=== PATIENT | male | born 1980 | race American Indian/Alaskan Native ===

== ENCOUNTER 2019-11-22 09:53 | Inpatient (IN) | payer OTHER ==
[2019-11-22] MEDS: Sodium Chloride 0.9% 10 ML Syringe FLUSH PRN (11:07)
[2019-11-22 11:25] LABS: ANION GAP 10.6; CHLORIDE,CL 97 mmol/L (101-111); SODIUM,NA 128 mmol/L (135-145)
[2019-11-22] MEDS: Dextrose 5%-0.9% NaCl with KCl 1,000 ML IV SCH ×2 (12:32→20:38)
--- NOTE | 2019-11-22 12:47 | EDM.PDOC ---
ED HPI GENERAL MEDICAL PROBLEM - General Chief Complaint: Lower Extremity Injury/Pain Stated Complaint: BLOOD CLOT ON RT LEG Time Seen by Provider: 11/22/19 10:50 Source of Information: Reports: Patient, Family, RN, RN Notes Reviewed History Limitations: Reports: No Limitations - History of Present Illness INITIAL COMMENTS - FREE TEXT/NARRATIVE: patient presents to ER with complaint of swelling, warmth, tenderness to the right lower leg. Patient states this began on November 12, and has progressively gotten worse. Patient states he has not had a lot of long car rides, and has never had a blood clot.Patient states he may have bumped the leg , but is unsure. Patient was seen in [facility] yesterday, and was advised to come to the ER yesterday. Patient states he is unable to get here until today. Onset: Gradual Onset Date: 11/12/19 Duration: Constant, Getting Worse Right Lower Leg Pain Score (Numeric/FACES): 8 - Related Data Allergies Allergy/AdvReac Type Severity Reaction Status Date / Time No Known Allergies Allergy Verified 11/22/19 13:02 Home Meds: Home Meds Metoprolol Tartrate [Lopressor] 50 mg PO DAILY 11/22/19 [History] Potassium Chloride 20 meq PO BID 11/22/19 [History] Past Medical History Cardiovascular History: Reports: Hypertension Social & Family History - Family History Family Medical History: Noncontributory - Tobacco Use Smoking Status *Q: Never Smoker - Caffeine Use Caffeine Use: Reports: Energy Drinks - Recreational Drug Use Recreational Drug Use: No Review of Systems - Review of Systems Review Of Systems: Comprehensive ROS is negative, except as noted in HPI. ED EXAM, GENERAL - Physical Exam Exam: See Below Exam Limited By: No Limitations General Appearance: Alert, WD/WN, No Apparent Distress Eye Exam: Left Eye: Proptosis, Bilateral Eye: Conjunctival Injection Ears: Normal External Exam, Hearing Grossly Normal Nose: Normal Inspection Throat/Mouth: Normal Inspection, Normal Voice, No Airway Compromise Head: Atraumatic, Normocephalic Neck: Normal Inspection, Supple, Non-Tender, Full Range of Motion Respiratory/Chest: No Respiratory Distress, Lungs Clear, No Accessory Muscle Use , Chest Non-Tender, Decreased Breath Sounds Cardiovascular: Normal Peripheral Pulses, Regular Rate, Rhythm, No Edema, No Gallop, No JVD, No Murmur, No Rub Peripheral Pulses: 1+: Dorsalis Pedis (L), Dorsalis Pedis (R), 2+: Radial (L), Radial (R) GI/Abdominal: Normal Bowel Sounds, Soft, Non-Tender (Male) Exam: Deferred Rectal (Males) Exam: Deferred Back Exam: Normal Inspection, Full Range of Motion, NT Extremities: Leg Pain (right lower leg), Limited Range of Motion (ight lower leg ), Increased Warmth (ight lower leg), Redness (right lower leg) Neurological: Alert, Oriented, CN II-XII Intact, Normal Cognition, Normal Gait, Normal Reflexes, No Motor/Sensory Deficits Psychiatric: Normal Affect, Normal Mood Skin Exam: Erythema (ight lower leg), Increased Warmth (right lower leg), Lymphangitis (right lower leg) Lymphatic: No Adenopathy Course - Vital Signs Last Recorded V/S: Last Vital Signs Temp 98.9 F 11/22/19 10:35 Pulse 114 H 11/22/19 10:35 Resp 20 11/22/19 10:35 BP 143/90 H 11/22/19 10:35 Pulse Ox 98 11/22/19 10:35 - Orders/Labs/Meds Orders: Active Orders 24 hr Category Date Time Status Peripheral IV Care [RC] . DIRECTED Care 11/22/19 10:50 Active Dextrose 5%-0.9% NaCl with KCl [D5 NS with 20 mEq KCl] Med 11/22/19 11:45 Active 1,000 ml IV ASDIRECTED Sodium Chloride 0.9% [Saline Flush] Med 11/22/19 10:50 Active 10 ml FLUSH ASDIRECTED PRN Peripheral IV Insertion Adult [OM.PC] Stat Oth 11/22/19 10:50 Ordered Medication Orders Potassium Chloride/Dextrose/Sod Cl (D5 Ns With 20 Meq Kcl) 1,000 mls @ 150 mls/ hr IV ASDIRECTED SILVESTRE Last Admin: 11/22/19 12:32 Dose: 150 mls/hr Sodium Chloride (Saline Flush) 10 ml FLUSH ASDIRECTED PRN PRN Reason: Keep Vein Open Last Admin: 11/22/19 11:07 Dose: 10 ml Labs: Laboratory Tests 11/22/19 11/22/19 11/22/19 Range/Units 11:00 11:00 11:00 WBC 6.7 (5.0-10.0) 10^3/uL RBC 3.98 L (4.6-6.2) 10^6/uL Hgb 13.0 L (14.0-18.0) g/dL Hct 37.0 L (40.0-54.0) % MCV 93.0 (80-100) fL MCH 32.7 (27.0-34.0) pg MCHC 35.1 H (33.0-35.0) g/dL Plt Count 135 L (150-450) 10^3/uL Neut % (Auto) 61.3 (42.2-75.2) % Lymph % (Auto) 22.3 (20.5-50.1) % [place] % (Auto) 14.0 H (2-8) % Eos % (Auto) 2.1 (1.0-3.0) % Baso % (Auto) 0.3 (0.0-1.0) % PT (9.0-12.0) SEC INR (0.9-1.2) D-Dimer, Quantitative 923 H (0-400) ng/mL Sodium 128 L (135-145) mmol/L Potassium 2.6 L (3.6-5.0) mmol/L Chloride 97 L (101-111) mmol/L Carbon Dioxide 23.0 (21.0-31.0) mmol/L Anion Gap 10.6 BUN 6 L (7-18) mg/dL Creatinine 0.6 (0.6-1.3) mg/dL Est Cr Clr Drug Dosing 119.85 mL/min Estimated GFR (MDRD) > 60 BUN/Creatinine Ratio 10.00 Glucose 152 H (74-105) mg/dL Calcium 7.1 L (8.4-10.2) mg/dl Total Bilirubin 1.8 H (0.2-1.0) mg/dL AST 132 H (10-42) IU/L ALT 56 (10-60) IU/L Alkaline Phosphatase 149 H (42-121) IU/L Total Protein 8.3 H (6.7-8.2) g/dl Albumin 1.8 L (3.2-5.5) g/dl Globulin 6.5 Albumin/Globulin Ratio 0.28 Urine Color (YELLOW) Urine Appearance (CLEAR) Urine pH (5.0-9.0) Ur Specific [place] (1.005-1.030) Urine Protein (NEGATIVE) Urine Glucose (UA) (NEGATIVE) Urine Ketones (NEGATIVE) Urine Occult Blood (NEGATIVE) Urine Nitrite (NEGATIVE) Urine Bilirubin (NEGATIVE) Urine Urobilinogen (0.2-1.0) mg/dL Ur Leukocyte Esterase (NEGATIVE) Urine RBC /HPF Urine WBC (0-5/HPF) /HPF Ur Epithelial Cells (NOT SEEN) /HPF Urine Bacteria (0-FEW/HPF) /HPF Urine Mucus (NOT SEEN) /LPF Urine Opiates Screen (NEGATIVE) Ur Oxycodone Screen (NEGATIVE) Urine Methadone Screen (NEGATIVE) Ur Barbiturates Screen (NEGATIVE) U Tricyclic Antidepress (NEGATIVE) Ur Phencyclidine Scrn (NEGATIVE) Ur Amphetamine Screen (NEGATIVE) U Methamphetamines Scrn (NEGATIVE) Urine MDMA Screen (NEGATIVE) U Benzodiazepines Scrn (NEGATIVE) Urine Cocaine Screen (NEGATIVE) U Marijuana (THC) Screen (NEGATIVE) Ethyl Alcohol mg/dL 11/22/19 11/22/19 11/22/19 Range/Units 11:00 11:00 11:07 WBC (5.0-10.0) 10^3/uL RBC (4.6-6.2) 10^6/uL Hgb (14.0-18.0) g/dL Hct (40.0-54.0) % MCV (80-100) fL MCH (27.0-34.0) pg MCHC (33.0-35.0) g/dL Plt Count (150-450) 10^3/uL Neut % (Auto) (42.2-75.2) % Lymph % (Auto) (20.5-50.1) % Whitfield % (Auto) (2-8) % Eos % (Auto) (1.0-3.0) % Baso % (Auto) (0.0-1.0) % PT 11.6 (9.0-12.0) SEC INR 1.1 (0.9-1.2) D-Dimer, Quantitative (0-400) ng/mL Sodium (135-145) mmol/L Potassium (3.6-5.0) mmol/L Chloride (101-111) mmol/L Carbon Dioxide (21.0-31.0) mmol/L Anion Gap BUN (7-18) mg/dL Creatinine (0.6-1.3) mg/dL Est Cr Clr Drug Dosing mL/min Estimated GFR (MDRD) BUN/Creatinine Ratio Glucose (74-105) mg/dL Calcium (8.4-10.2) mg/dl Total Bilirubin (0.2-1.0) mg/dL AST (10-42) IU/L ALT (10-60) IU/L Alkaline Phosphatase (42-121) IU/L Total Protein (6.7-8.2) g/dl Albumin (3.2-5.5) g/dl Globulin Albumin/Globulin Ratio Urine Color (YELLOW) Urine Appearance (CLEAR) Urine pH (5.0-9.0) Ur Specific [place] (1.005-1.030) Urine Protein (NEGATIVE) Urine Glucose (UA) (NEGATIVE) Urine Ketones (NEGATIVE) Urine Occult Blood (NEGATIVE) Urine Nitrite (NEGATIVE) Urine Bilirubin (NEGATIVE) Urine Urobilinogen (0.2-1.0) mg/dL Ur Leukocyte Esterase (NEGATIVE) Urine RBC /HPF Urine WBC (0-5/HPF) /HPF Ur Epithelial Cells (NOT SEEN) /HPF Urine Bacteria (0-FEW/HPF) /HPF Urine Mucus (NOT SEEN) /LPF Urine Opiates Screen Negative (NEGATIVE) Ur Oxycodone Screen Negative (NEGATIVE) Urine Methadone Screen Negative (NEGATIVE) Ur Barbiturates Screen Negative (NEGATIVE) U Tricyclic Antidepress Negative (NEGATIVE) Ur Phencyclidine Scrn Negative (NEGATIVE) Ur Amphetamine Screen Negative (NEGATIVE) U Methamphetamines Scrn Negative (NEGATIVE) Urine MDMA Screen Negative (NEGATIVE) U Benzodiazepines Scrn Negative (NEGATIVE) Urine Cocaine Screen Negative (NEGATIVE) U Marijuana (THC) Screen Negative (NEGATIVE) Ethyl Alcohol 83 mg/dL 11/22/19 Range/Units 11:10 WBC (5.0-10.0) 10^3/uL RBC (4.6-6.2) 10^6/uL Hgb (14.0-18.0) g/dL Hct (40.0-54.0) % MCV (80-100) fL MCH (27.0-34.0) pg MCHC (33.0-35.0) g/dL Plt Count (150-450) 10^3/uL Neut % (Auto) (42.2-75.2) % Lymph % (Auto) (20.5-50.1) % [place]field % (Auto) (2-8) % Eos % (Auto) (1.0-3.0) % Baso % (Auto) (0.0-1.0) % PT (9.0-12.0) SEC INR (0.9-1.2) D-Dimer, Quantitative (0-400) ng/mL Sodium (135-145) mmol/L Potassium (3.6-5.0) mmol/L Chloride (101-111) mmol/L Carbon Dioxide (21.0-31.0) mmol/L Anion Gap BUN (7-18) mg/dL Creatinine (0.6-1.3) mg/dL Est Cr Clr Drug Dosing mL/min Estimated GFR (MDRD) BUN/Creatinine Ratio Glucose (74-105) mg/dL Calcium (8.4-10.2) mg/dl Total Bilirubin (0.2-1.0) mg/dL AST (10-42) IU/L ALT (10-60) IU/L Alkaline Phosphatase (42-121) IU/L Total Protein (6.7-8.2) g/dl Albumin (3.2-5.5) g/dl Globulin Albumin/Globulin Ratio Urine Color Yellow (YELLOW) Urine Appearance Slightly cloudy (CLEAR) Urine pH 7.0 (5.0-9.0) Ur Specific [place] 1.015 (1.005-1.030) Urine Protein Trace H (NEGATIVE) Urine Glucose (UA) Negative (NEGATIVE) Urine Ketones Negative (NEGATIVE) Urine Occult Blood Moderate H (NEGATIVE) Urine Nitrite Negative (NEGATIVE) Urine Bilirubin Negative (NEGATIVE) Urine Urobilinogen 4.0 H (0.2-1.0) mg/dL Ur Leukocyte Esterase Negative (NEGATIVE) Urine RBC 20-30 H /HPF Urine WBC 0-5 (0-5/HPF) /HPF Ur Epithelial Cells Rare (NOT SEEN) /HPF Urine Bacteria Rare (0-FEW/HPF) /HPF Urine Mucus Rare (NOT SEEN) /LPF Urine Opiates Screen (NEGATIVE) Ur Oxycodone Screen (NEGATIVE) Urine Methadone Screen (NEGATIVE) Ur Barbiturates Screen (NEGATIVE) U Tricyclic Antidepress (NEGATIVE) Ur Phencyclidine Scrn (NEGATIVE) Ur Amphetamine Screen (NEGATIVE) U Methamphetamines Scrn (NEGATIVE) Urine MDMA Screen (NEGATIVE) U Benzodiazepines Scrn (NEGATIVE) Urine Cocaine Screen (NEGATIVE) U Marijuana (THC) Screen (NEGATIVE) Ethyl Alcohol mg/dL Meds: Medications Generic Name Dose Route Start Last Admin Trade Name Freq PRN Reason Stop Dose Admin Potassium Chloride/Dextrose/Sod Cl 1,000 mls @ 150 mls/hr 11/22/19 11:45 12:32 D5 Ns With 20 Meq Kcl IV 150 mls/hr ASDIRECTED SILVESTRE Administration Sodium Chloride 10 ml 11/22/19 10:50 11/22/19 11:07 Saline Flush FLUSH 10 ml ASDIRECTED PRN Administration Keep Vein Open - Radiology Interpretation Free Text/Narrative:: Venous doppler right lower extremity ultrasound: FINDINGS: Right deep veins: Unremarkable. The common femoral, femoral, proximal profunda femoral and popliteal veins are patent without thrombus. Normal Doppler waveforms. Normal compressibility and/or augmentation response. The posterior tibial and peroneal veins in the calf are patent as well. Right superficial veins: Question some thrombus developing in the right greater saphenous vein along a valve near the saphenofemoral junction. Soft tissues: Unremarkable. Lymph nodes: Right inguinal lymph nodes measure 5.1 x 1.4 x 3.6 cm and 3.3 x 0.8 x 2.4 cm. IMPRESSION: 1. No deep venous thrombus demonstrated in the right lower extremity. 2. Question early superficial thrombophlebitis along a valve near the saphenofemoral junction in the greater saphenous vein. 3. Prominent inguinal lymph nodes, larger 1.4 cm short axis. Correlate clinically. Thank you for allowing us to participate in the care of your patient. Dictated and Authenticated by: Jonas White MD 11/22/2019 12:30 PM Central Time ([place] & [place]) See rad report - Re-Assessments/Exams Free Text/Narrative Re-Assessment/Exam: 11/22/19 13:15 Discussed patient case with Dr. Alberto who agreed to admit the patient for inpatient to the medical floor. Departure - Departure Time of Disposition: 12:55 Disposition: Admitted As Inpatient 64 Condition: Fair Clinical Impression: Thrombophlebitis leg - Discharge Information *PRESCRIPTION DRUG MONITORING PROGRAM REVIEWED*: No *COPY OF PRESCRIPTION DRUG MONITORING REPORT IN PATIENT CHARITY: No Sepsis Event Note - Evaluation Sepsis Screening Result: No Definite Risk - Focused Exam Vital Signs: Vital Signs Temp Pulse Resp BP Pulse Ox 11/22/19 10:35 98.9 F 114 H 20 143/90 H 98 Date Exam was Performed: 11/22/19 Time Exam was Performed: 13:11 - My Orders Last 24 Hours: My Active Orders 11/22/19 10:50 Peripheral IV Care [RC] . DIRECTED Sodium Chloride 0.9% [Saline Flush] 10 ml FLUSH ASDIRECTED PRN Peripheral IV Insertion Adult [OM.PC] Stat 11/22/19 11:45 Dextrose 5%-0.9% NaCl with KCl [D5 NS with 20 mEq KCl] 1,000 ml IV ASDIRECTED - Assessment/Plan Last 24 Hours: My Active Orders 11/22/19 10:50 Peripheral IV Care [RC] . DIRECTED Sodium Chloride 0.9% [Saline Flush] 10 ml FLUSH ASDIRECTED PRN Peripheral IV Insertion Adult [OM.PC] Stat 11/22/19 11:45 Dextrose 5%-0.9% NaCl with KCl [D5 NS with 20 mEq KCl] 1,000 ml IV ASDIRECTED
--- NOTE | 2019-11-22 13:53 | PCM.HP ---
H&P History of Present Illness - General Date of Service: 11/22/19 Admit Problem/Dx: Admission Diagnosis/Problem Admission Diagnosis/Problem Cellulitis and Severe Hypokalemia Source of Information: Patient, Old Records History Limitations: Reports: No Limitations - History of Present Illness Initial Comments - Free Text/Narative: This is a 39 old Male with past medical history of Hypertension and likely alcohol abuse ( he is denying) but his blood alcohol was 83. He came to ED with complain od RT LE pain and swelling and warmth for the last 2-3 days and getting worse. He had U/S of RT LE and no DVT but superficial thrombophlebitis. on lab he was noted to have Hyponatremia and severe Hypokalemia. He was admitted for Likely Cellulitis Onset of Symptoms: Reports: Gradual Duration of Symptoms: Reports: Day(s): (2-3) Quality: Reports: Burning Associated Symptoms: Reports: Rash Right Lower Leg Pain Score (Numeric/FACES): 8 - Related Data Allergies/Adverse Reactions: Allergies Allergy/AdvReac Type Severity Reaction Status Date / Time No Known Allergies Allergy Verified 11/22/19 13:02 Home Medications: Home Meds Metoprolol Tartrate [Lopressor] 50 mg PO DAILY 11/22/19 [History] Potassium Chloride 20 meq PO BID 11/22/19 [History] Past Medical History HEENT History: Reports: Other (See Below) Other HEENT History: left lazy eye Cardiovascular History: Reports: Hypertension - Infectious Disease History Infectious Disease History: Reports: None Social & Family History - Family History Family Medical History: Noncontributory - Tobacco Use Smoking Status *Q: Never Smoker Second Hand Smoke Exposure: Yes - Caffeine Use Caffeine Use: Reports: Energy Drinks - Recreational Drug Use Recreational Drug Use: No H&P Review of Systems - Review of Systems: Review Of Systems: See Below General: Denies: Fever, Chills, Weakness, Fatigue HEENT: Denies: Hearing Changes, Post Nasal Drip, Sinus Congestion, Sore Throat, Visual Changes Pulmonary: Denies: Shortness of Breath, Wheezing, Cough, Sputum Cardiovascular: Denies: Chest Pain, Dyspnea on Exertion, Lightheadedness Gastrointestinal: Denies: Abdominal Pain, Diarrhea, Nausea, Vomiting Genitourinary: Denies: Dysuria, Burning, Urgency Musculoskeletal: Reports: Leg Pain, Foot Pain. Denies: Neck Pain, Shoulder Pain , Arm Pain Skin: Denies: Cyanosis, Jaundice Psychiatric: Denies: Confusion, Anxiety Neurological: Denies: Confusion, Numbness, Tingling, Tremors Hematologic/Lymphatic: Reports: No Symptoms Immunologic: Reports: No Symptoms Exam - Exam Exam: See Below - Vital Signs Vital Signs: Last Vital Signs Temp 38.0 C 11/22/19 13:10 Pulse 91 11/22/19 13:10 Resp 20 11/22/19 13:10 BP 149/94 H 11/22/19 13:10 Pulse Ox 100 11/22/19 13:10 Weight: 96.524 kg - Exam Quality Assessment: DVT Prophylaxis. No: Supplemental Oxygen, Urinary Catheter General: Alert, Oriented, Cooperative HEENT: Conjunctiva Clear, EOMI, Hearing Intact, Mucosa Moist & [place] Neck: No: Lymphadenopathy, JVD, Thyromegaly Lungs: Clear to Auscultation, Normal Respiratory Effort Cardiovascular: Regular Rate, Regular Rhythm, Normal S1, Normal S2 GI/Abdominal Exam: Normal Bowel Sounds, Soft, Non-Tender, No Organomegaly (Male) Exam: Deferred Rectal (Males) Exam: Deferred Back Exam: Normal Inspection Extremities: Normal Inspection, Pedal Edema, Redness, Other (toes of both feet are cracked) Neurological: Cranial Nerves Intact, Reflexes Equal Bilateral Neuro Extensive - Mental Status: Alert, Oriented x3, Normal Mood/Affect, Normal Cognition, Memory Intact Neuro Extensive - Motor, Sensory, Reflexes: CN II-XII Intact, Normal Gait Psychiatric: Alert, Normal Affect, Normal Mood - Patient Data Lab Results Last 24 hrs: Laboratory Results - last 24 hr 11/22/19 11/22/19 11/22/19 Range/Units 11:00 11:00 11:00 WBC 6.7 (5.0-10.0) 10^3/uL RBC 3.98 L (4.6-6.2) 10^6/uL Hgb 13.0 L (14.0-18.0) g/dL Hct 37.0 L (40.0-54.0) % MCV 93.0 (80-100) fL MCH 32.7 (27.0-34.0) pg MCHC 35.1 H (33.0-35.0) g/dL Plt Count 135 L (150-450) 10^3/uL Neut % (Auto) 61.3 (42.2-75.2) % Lymph % (Auto) 22.3 (20.5-50.1) % [place] % (Auto) 14.0 H (2-8) % Eos % (Auto) 2.1 (1.0-3.0) % Baso % (Auto) 0.3 (0.0-1.0) % PT (9.0-12.0) SEC INR (0.9-1.2) D-Dimer, Quantitative 923 H (0-400) ng/mL Sodium 128 L (135-145) mmol/L Potassium 2.6 L (3.6-5.0) mmol/L Chloride 97 L (101-111) mmol/L Carbon Dioxide 23.0 (21.0-31.0) mmol/L Anion Gap 10.6 BUN 6 L (7-18) mg/dL Creatinine 0.6 (0.6-1.3) mg/dL Est Cr Clr Drug Dosing 119.85 mL/min Estimated GFR (MDRD) > 60 BUN/Creatinine Ratio 10.00 Glucose 152 H (74-105) mg/dL Calcium 7.1 L (8.4-10.2) mg/dl Total Bilirubin 1.8 H (0.2-1.0) mg/dL AST 132 H (10-42) IU/L ALT 56 (10-60) IU/L Alkaline Phosphatase 149 H (42-121) IU/L Total Protein 8.3 H (6.7-8.2) g/dl Albumin 1.8 L (3.2-5.5) g/dl Globulin 6.5 Albumin/Globulin Ratio 0.28 Urine Color (YELLOW) Urine Appearance (CLEAR) Urine pH (5.0-9.0) Ur Specific [place] (1.005-1.030) Urine Protein (NEGATIVE) Urine Glucose (UA) (NEGATIVE) Urine Ketones (NEGATIVE) Urine Occult Blood (NEGATIVE) Urine Nitrite (NEGATIVE) Urine Bilirubin (NEGATIVE) Urine Urobilinogen (0.2-1.0) mg/dL Ur Leukocyte Esterase (NEGATIVE) Urine RBC /HPF Urine WBC (0-5/HPF) /HPF Ur Epithelial Cells (NOT SEEN) /HPF Urine Bacteria (0-FEW/HPF) /HPF Urine Mucus (NOT SEEN) /LPF Urine Opiates Screen (NEGATIVE) Ur Oxycodone Screen (NEGATIVE) Urine Methadone Screen (NEGATIVE) Ur Barbiturates Screen (NEGATIVE) U Tricyclic Antidepress (NEGATIVE) Ur Phencyclidine Scrn (NEGATIVE) Ur Amphetamine Screen (NEGATIVE) U Methamphetamines Scrn (NEGATIVE) Urine MDMA Screen (NEGATIVE) U Benzodiazepines Scrn (NEGATIVE) Urine Cocaine Screen (NEGATIVE) U Marijuana (THC) Screen (NEGATIVE) Ethyl Alcohol mg/dL 11/22/19 11/22/19 11/22/19 Range/Units 11:00 11:00 11:07 WBC (5.0-10.0) 10^3/uL RBC (4.6-6.2) 10^6/uL Hgb (14.0-18.0) g/dL Hct (40.0-54.0) % MCV (80-100) fL MCH (27.0-34.0) pg MCHC (33.0-35.0) g/dL Plt Count (150-450) 10^3/uL Neut % (Auto) (42.2-75.2) % Lymph % (Auto) (20.5-50.1) % [place] % (Auto) (2-8) % Eos % (Auto) (1.0-3.0) % Baso % (Auto) (0.0-1.0) % PT 11.6 (9.0-12.0) SEC INR 1.1 (0.9-1.2) D-Dimer, Quantitative (0-400) ng/mL Sodium (135-145) mmol/L Potassium (3.6-5.0) mmol/L Chloride (101-111) mmol/L Carbon Dioxide (21.0-31.0) mmol/L Anion Gap BUN (7-18) mg/dL Creatinine (0.6-1.3) mg/dL Est Cr Clr Drug Dosing mL/min Estimated GFR (MDRD) BUN/Creatinine Ratio Glucose (74-105) mg/dL Calcium (8.4-10.2) mg/dl Total Bilirubin (0.2-1.0) mg/dL AST (10-42) IU/L ALT (10-60) IU/L Alkaline Phosphatase (42-121) IU/L Total Protein (6.7-8.2) g/dl Albumin (3.2-5.5) g/dl Globulin Albumin/Globulin Ratio Urine Color (YELLOW) Urine Appearance (CLEAR) Urine pH (5.0-9.0) Ur Specific [place] (1.005-1.030) Urine Protein (NEGATIVE) Urine Glucose (UA) (NEGATIVE) Urine Ketones (NEGATIVE) Urine Occult Blood (NEGATIVE) Urine Nitrite (NEGATIVE) Urine Bilirubin (NEGATIVE) Urine Urobilinogen (0.2-1.0) mg/dL Ur Leukocyte Esterase (NEGATIVE) Urine RBC /HPF Urine WBC (0-5/HPF) /HPF Ur Epithelial Cells (NOT SEEN) /HPF Urine Bacteria (0-FEW/HPF) /HPF Urine Mucus (NOT SEEN) /LPF Urine Opiates Screen Negative (NEGATIVE) Ur Oxycodone Screen Negative (NEGATIVE) Urine Methadone Screen Negative (NEGATIVE) Ur Barbiturates Screen Negative (NEGATIVE) U Tricyclic Antidepress Negative (NEGATIVE) Ur Phencyclidine Scrn Negative (NEGATIVE) Ur Amphetamine Screen Negative (NEGATIVE) U Methamphetamines Scrn Negative (NEGATIVE) Urine MDMA Screen Negative (NEGATIVE) U Benzodiazepines Scrn Negative (NEGATIVE) Urine Cocaine Screen Negative (NEGATIVE) U Marijuana (THC) Screen Negative (NEGATIVE) Ethyl Alcohol 83 mg/dL 11/22/19 Range/Units 11:10 WBC (5.0-10.0) 10^3/uL RBC (4.6-6.2) 10^6/uL Hgb (14.0-18.0) g/dL Hct (40.0-54.0) % MCV (80-100) fL MCH (27.0-34.0) pg MCHC (33.0-35.0) g/dL Plt Count (150-450) 10^3/uL Neut % (Auto) (42.2-75.2) % Lymph % (Auto) (20.5-50.1) % [place] % (Auto) (2-8) % Eos % (Auto) (1.0-3.0) % Baso % (Auto) (0.0-1.0) % PT (9.0-12.0) SEC INR (0.9-1.2) D-Dimer, Quantitative (0-400) ng/mL Sodium (135-145) mmol/L Potassium (3.6-5.0) mmol/L Chloride (101-111) mmol/L Carbon Dioxide (21.0-31.0) mmol/L Anion Gap BUN (7-18) mg/dL Creatinine (0.6-1.3) mg/dL Est Cr Clr Drug Dosing mL/min Estimated GFR (MDRD) BUN/Creatinine Ratio Glucose (74-105) mg/dL Calcium (8.4-10.2) mg/dl Total Bilirubin (0.2-1.0) mg/dL AST (10-42) IU/L ALT (10-60) IU/L Alkaline Phosphatase (42-121) IU/L Total Protein (6.7-8.2) g/dl Albumin (3.2-5.5) g/dl Globulin Albumin/Globulin Ratio Urine Color Yellow (YELLOW) Urine Appearance Slightly cloudy (CLEAR) Urine pH 7.0 (5.0-9.0) Ur Specific [place] 1.015 (1.005-1.030) Urine Protein Trace H (NEGATIVE) Urine Glucose (UA) Negative (NEGATIVE) Urine Ketones Negative (NEGATIVE) Urine Occult Blood Moderate H (NEGATIVE) Urine Nitrite Negative (NEGATIVE) Urine Bilirubin Negative (NEGATIVE) Urine Urobilinogen 4.0 H (0.2-1.0) mg/dL Ur Leukocyte Esterase Negative (NEGATIVE) Urine RBC 20-30 H /HPF Urine WBC 0-5 (0-5/HPF) /HPF Ur Epithelial Cells Rare (NOT SEEN) /HPF Urine Bacteria Rare (0-FEW/HPF) /HPF Urine Mucus Rare (NOT SEEN) /LPF Urine Opiates Screen (NEGATIVE) Ur Oxycodone Screen (NEGATIVE) Urine Methadone Screen (NEGATIVE) Ur Barbiturates Screen (NEGATIVE) U Tricyclic Antidepress (NEGATIVE) Ur Phencyclidine Scrn (NEGATIVE) Ur Amphetamine Screen (NEGATIVE) U Methamphetamines Scrn (NEGATIVE) Urine MDMA Screen (NEGATIVE) U Benzodiazepines Scrn (NEGATIVE) Urine Cocaine Screen (NEGATIVE) U Marijuana (THC) Screen (NEGATIVE) Ethyl Alcohol mg/dL Result Diagrams: 11/22/19 11:00 11/22/19 11:00 - Problem List (1) Cellulitis SNOMED Code(s): 144299905 ICD Code: L03.90 - CELLULITIS, UNSPECIFIED Status: Acute Current Visit: Yes (2) Hyponatremia SNOMED Code(s): 71444837 ICD Code: E87.1 - HYPO-OSMOLALITY AND HYPONATREMIA Status: Acute Current Visit: Yes (3) Hypokalemia SNOMED Code(s): 80588558 ICD Code: E87.6 - HYPOKALEMIA Status: Acute Current Visit: Yes (4) Thrombophlebitis leg SNOMED Code(s): 92524273 ICD Code: I80.3 - PHLEBITIS AND THROMBOPHLEBITIS OF LOWER EXTREMITIES, UNSP Status: Acute Current Visit: Yes Problem List Initiated/Reviewed/Updated: Yes Orders Last 24hrs: Active Orders 24 hr Category Date Time Status Admission Diagnosis [ADT] Routine ADT 11/22/19 12:56 Ordered Admission Status [Patient Status] [ADT] Routine ADT 11/22/19 12:56 Active Peripheral IV Care [RC] . DIRECTED Care 11/22/19 10:50 Active Dextrose 5%-0.9% NaCl with KCl [D5 NS with 20 mEq KCl] Med 11/22/19 11:45 Active 1,000 ml IV ASDIRECTED Sodium Chloride 0.9% [Saline Flush] Med 11/22/19 10:50 Active 10 ml FLUSH ASDIRECTED PRN Peripheral IV Insertion Adult [OM.PC] Stat Oth 11/22/19 10:50 Ordered Medication Orders Potassium Chloride/Dextrose/Sod Cl (D5 Ns With 20 Meq Kcl) 1,000 mls @ 150 mls/ hr IV ASDIRECTED SILVESTRE Last Admin: 11/22/19 12:32 Dose: 150 mls/hr Sodium Chloride (Saline Flush) 10 ml FLUSH ASDIRECTED PRN PRN Reason: Keep Vein Open Last Admin: 11/22/19 11:07 Dose: 10 ml Assessment/Plan Comment:: 39 y/o M with past history of Hypertension and alcohol use, admitted with Rt LE cellulitis 1. Right LE cellulitis: Will start emperic therapy with Zosyn -meng the area and evaluate the progress -BMP in AM 2. Hypertension: will continue Metoprolol at 50 mg daily 3. Edema of extremities: Will start lasix 40 mg from tomorrow 4. Hypokalemia: The etiology not clear, he is getting 20 meq in IV fluids -Will give potassium chloride 40 meq now and 2 hrs later 20 meq -Check Potassium in AMN 5. Toes with cracks and possible fungal infection: advise to get evaluated by podiatry as out pt DVT prophylaxis: start Enoxaparin Code Status: discussed with pt and he is full Code
[2019-11-22] MEDS ORDERED: Docusate Sodium 100 MG Cap PO PRN (14:06)
[2019-11-22] MEDS ORDERED: Potassium Chloride 10 MEQ Tab.ER PO ONE (14:11)
[2019-11-22] MEDS: Piperacillin/Tazobactam 3.375 GM in Sodium Chloride 0.9% 100 ML IV SCH ×2 (14:31→17:52)
[2019-11-22] MEDS: Potassium Chloride 10 MEQ Tab.ER PO SCH (17:52)
[2019-11-22] MEDS: Acetaminophen 325 MG Tab PO PRN (22:32)
[2019-11-23] MEDS: Piperacillin/Tazobactam 3.375 GM in Sodium Chloride 0.9% 100 ML IV SCH ×4 (00:10→18:23)
[2019-11-23] MEDS: Dextrose 5%-0.9% NaCl with KCl 1,000 ML IV SCH (03:48)
[2019-11-23 07:24] LABS: ANION GAP 10.3; CHLORIDE,CL 103 mmol/L (101-111); SODIUM,NA 132 mmol/L (135-145)
[2019-11-23] MEDS: Potassium Chloride 10 MEQ Tab.ER PO SCH ×2 (08:55→18:23)
[2019-11-23] MEDS: Enoxaparin 40 MG/0.4 ML Syringe SUBCUT SCH (08:56)
[2019-11-23] MEDS: Metoprolol Tartrate 50 MG Tab PO SCH (08:56)
[2019-11-23] MEDS ORDERED: Furosemide 40 MG/4 ML VIAL IVPUSH ONE (10:41)
--- NOTE | 2019-11-23 11:26 | PCM.PN ---
- General Info Date of Service: 11/23/19 Admission Dx/Problem (Free Text): Admission Diagnosis/Problem Admission Diagnosis/Problem Cellulitis of Rt LE and Severe Hypokalemia Subjective Update: Today he was seen in room, doing well, pain is better, appetite is good, has no nausea or vomiting, no fever or Chill Functional Status: Reports: Pain Controlled, Tolerating Diet, Ambulating, Urinating - Review of Systems General: Reports: Weakness, Appetite (good). Denies: Fever, Chills HEENT: Denies: Headaches, Sinus Congestion, Sore Throat, Visual Changes Pulmonary: Denies: Shortness of Breath, Cough, Sputum, Wheezing Cardiovascular: Reports: Edema. Denies: Chest Pain, Dyspnea on Exertion, Lightheadedness Gastrointestinal: Denies: Abdominal Pain, Difficulty Swallowing, Nausea, Vomiting Genitourinary: Denies: Dysuria, Frequency, Burning, Flank Pain Musculoskeletal: Reports: Leg Pain (Right). Denies: Neck Pain, Shoulder Pain, Arm Pain Skin: Reports: Rash (Right LE). Denies: Cyanosis, Jaundice, Bruising Neurological: Denies: Confusion, Headache, Numbness, Tremors Psychiatric: Reports: No Symptoms - Patient Data Vitals - Most Recent: Last Vital Signs Temp 37.9 C 11/23/19 11:17 Pulse 85 11/23/19 11:17 Resp 22 H 11/23/19 11:17 BP 128/67 11/23/19 11:17 Pulse Ox 100 11/23/19 11:17 Weight - Most Recent: 98.157 kg I&O - Last 24 Hours: Intake & Output 11/22/19 11/23/19 11/23/19 22:59 06:59 14:59 Intake Total 1154 1250 Output Total 600 Balance 1154 650 Lab Results Last 24 Hours: Laboratory Results - last 24 hr 11/22/19 11/22/19 11/22/19 Range/Units 11:00 11:00 11:00 WBC 6.7 (5.0-10.0) 10^3/uL RBC 3.98 L (4.6-6.2) 10^6/uL Hgb 13.0 L (14.0-18.0) g/dL Hct 37.0 L (40.0-54.0) % MCV 93.0 (80-100) fL MCH 32.7 (27.0-34.0) pg MCHC 35.1 H (33.0-35.0) g/dL Plt Count 135 L (150-450) 10^3/uL Neut % (Auto) 61.3 (42.2-75.2) % Lymph % (Auto) 22.3 (20.5-50.1) % [place] % (Auto) 14.0 H (2-8) % Eos % (Auto) 2.1 (1.0-3.0) % Baso % (Auto) 0.3 (0.0-1.0) % PT (9.0-12.0) SEC INR (0.9-1.2) D-Dimer, Quantitative 923 H (0-400) ng/mL Sodium 128 L (135-145) mmol/L Potassium 2.6 L (3.6-5.0) mmol/L Chloride 97 L (101-111) mmol/L Carbon Dioxide 23.0 (21.0-31.0) mmol/L Anion Gap 10.6 BUN 6 L (7-18) mg/dL Creatinine 0.6 (0.6-1.3) mg/dL Est Cr Clr Drug Dosing 119.85 mL/min Estimated GFR (MDRD) > 60 BUN/Creatinine Ratio 10.00 Glucose 152 H (74-105) mg/dL Calcium 7.1 L (8.4-10.2) mg/dl Total Bilirubin 1.8 H (0.2-1.0) mg/dL AST 132 H (10-42) IU/L ALT 56 (10-60) IU/L Alkaline Phosphatase 149 H (42-121) IU/L Total Protein 8.3 H (6.7-8.2) g/dl Albumin 1.8 L (3.2-5.5) g/dl Globulin 6.5 Albumin/Globulin Ratio 0.28 Urine Color (YELLOW) Urine Appearance (CLEAR) Urine pH (5.0-9.0) Ur Specific [place] (1.005-1.030) Urine Protein (NEGATIVE) Urine Glucose (UA) (NEGATIVE) Urine Ketones (NEGATIVE) Urine Occult Blood (NEGATIVE) Urine Nitrite (NEGATIVE) Urine Bilirubin (NEGATIVE) Urine Urobilinogen (0.2-1.0) mg/dL Ur Leukocyte Esterase (NEGATIVE) Urine RBC /HPF Urine WBC (0-5/HPF) /HPF Ur Epithelial Cells (NOT SEEN) /HPF Urine Bacteria (0-FEW/HPF) /HPF Urine Mucus (NOT SEEN) /LPF Urine Opiates Screen (NEGATIVE) Ur Oxycodone Screen (NEGATIVE) Urine Methadone Screen (NEGATIVE) Ur Barbiturates Screen (NEGATIVE) U Tricyclic Antidepress (NEGATIVE) Ur Phencyclidine Scrn (NEGATIVE) Ur Amphetamine Screen (NEGATIVE) U Methamphetamines Scrn (NEGATIVE) Urine MDMA Screen (NEGATIVE) U Benzodiazepines Scrn (NEGATIVE) Urine Cocaine Screen (NEGATIVE) U Marijuana (THC) Screen (NEGATIVE) Ethyl Alcohol mg/dL 11/22/19 11/22/19 11/22/19 Range/Units 11:00 11:00 11:07 WBC (5.0-10.0) 10^3/uL RBC (4.6-6.2) 10^6/uL Hgb (14.0-18.0) g/dL Hct (40.0-54.0) % MCV (80-100) fL MCH (27.0-34.0) pg MCHC (33.0-35.0) g/dL Plt Count (150-450) 10^3/uL Neut % (Auto) (42.2-75.2) % Lymph % (Auto) (20.5-50.1) % [place] % (Auto) (2-8) % Eos % (Auto) (1.0-3.0) % Baso % (Auto) (0.0-1.0) % PT 11.6 (9.0-12.0) SEC INR 1.1 (0.9-1.2) D-Dimer, Quantitative (0-400) ng/mL Sodium (135-145) mmol/L Potassium (3.6-5.0) mmol/L Chloride (101-111) mmol/L Carbon Dioxide (21.0-31.0) mmol/L Anion Gap BUN (7-18) mg/dL Creatinine (0.6-1.3) mg/dL Est Cr Clr Drug Dosing mL/min Estimated GFR (MDRD) BUN/Creatinine Ratio Glucose (74-105) mg/dL Calcium (8.4-10.2) mg/dl Total Bilirubin (0.2-1.0) mg/dL AST (10-42) IU/L ALT (10-60) IU/L Alkaline Phosphatase (42-121) IU/L Total Protein (6.7-8.2) g/dl Albumin (3.2-5.5) g/dl Globulin Albumin/Globulin Ratio Urine Color (YELLOW) Urine Appearance (CLEAR) Urine pH (5.0-9.0) Ur Specific [place] (1.005-1.030) Urine Protein (NEGATIVE) Urine Glucose (UA) (NEGATIVE) Urine Ketones (NEGATIVE) Urine Occult Blood (NEGATIVE) Urine Nitrite (NEGATIVE) Urine Bilirubin (NEGATIVE) Urine Urobilinogen (0.2-1.0) mg/dL Ur Leukocyte Esterase (NEGATIVE) Urine RBC /HPF Urine WBC (0-5/HPF) /HPF Ur Epithelial Cells (NOT SEEN) /HPF Urine Bacteria (0-FEW/HPF) /HPF Urine Mucus (NOT SEEN) /LPF Urine Opiates Screen Negative (NEGATIVE) Ur Oxycodone Screen Negative (NEGATIVE) Urine Methadone Screen Negative (NEGATIVE) Ur Barbiturates Screen Negative (NEGATIVE) U Tricyclic Antidepress Negative (NEGATIVE) Ur Phencyclidine Scrn Negative (NEGATIVE) Ur Amphetamine Screen Negative (NEGATIVE) U Methamphetamines Scrn Negative (NEGATIVE) Urine MDMA Screen Negative (NEGATIVE) U Benzodiazepines Scrn Negative (NEGATIVE) Urine Cocaine Screen Negative (NEGATIVE) U Marijuana (THC) Screen Negative (NEGATIVE) Ethyl Alcohol 83 mg/dL 11/22/19 11/23/19 Range/Units 11:10 06:10 WBC (5.0-10.0) 10^3/uL RBC (4.6-6.2) 10^6/uL Hgb (14.0-18.0) g/dL Hct (40.0-54.0) % MCV (80-100) fL MCH (27.0-34.0) pg MCHC (33.0-35.0) g/dL Plt Count (150-450) 10^3/uL Neut % (Auto) (42.2-75.2) % Lymph % (Auto) (20.5-50.1) % [place] % (Auto) (2-8) % Eos % (Auto) (1.0-3.0) % Baso % (Auto) (0.0-1.0) % PT (9.0-12.0) SEC INR (0.9-1.2) D-Dimer, Quantitative (0-400) ng/mL Sodium 132 L (135-145) mmol/L Potassium 3.3 L (3.6-5.0) mmol/L Chloride 103 (101-111) mmol/L Carbon Dioxide 22.0 (21.0-31.0) mmol/L Anion Gap 10.3 BUN 6 L (7-18) mg/dL Creatinine 0.6 (0.6-1.3) mg/dL Est Cr Clr Drug Dosing 143.57 mL/min Estimated GFR (MDRD) > 60 BUN/Creatinine Ratio Glucose 120 H (74-105) mg/dL Calcium 6.7 L (8.4-10.2) mg/dl Total Bilirubin (0.2-1.0) mg/dL AST (10-42) IU/L ALT (10-60) IU/L Alkaline Phosphatase (42-121) IU/L Total Protein (6.7-8.2) g/dl Albumin (3.2-5.5) g/dl Globulin Albumin/Globulin Ratio Urine Color Yellow (YELLOW) Urine Appearance Slightly cloudy (CLEAR) Urine pH 7.0 (5.0-9.0) Ur Specific [place] 1.015 (1.005-1.030) Urine Protein Trace H (NEGATIVE) Urine Glucose (UA) Negative (NEGATIVE) Urine Ketones Negative (NEGATIVE) Urine Occult Blood Moderate H (NEGATIVE) Urine Nitrite Negative (NEGATIVE) Urine Bilirubin Negative (NEGATIVE) Urine Urobilinogen 4.0 H (0.2-1.0) mg/dL Ur Leukocyte Esterase Negative (NEGATIVE) Urine RBC 20-30 H /HPF Urine WBC 0-5 (0-5/HPF) /HPF Ur Epithelial Cells Rare (NOT SEEN) /HPF Urine Bacteria Rare (0-FEW/HPF) /HPF Urine Mucus Rare (NOT SEEN) /LPF Urine Opiates Screen (NEGATIVE) Ur Oxycodone Screen (NEGATIVE) Urine Methadone Screen (NEGATIVE) Ur Barbiturates Screen (NEGATIVE) U Tricyclic Antidepress (NEGATIVE) Ur Phencyclidine Scrn (NEGATIVE) Ur Amphetamine Screen (NEGATIVE) U Methamphetamines Scrn (NEGATIVE) Urine MDMA Screen (NEGATIVE) U Benzodiazepines Scrn (NEGATIVE) Urine Cocaine Screen (NEGATIVE) U Marijuana (THC) Screen (NEGATIVE) Ethyl Alcohol mg/dL Med Orders - Current: Current Medications Acetaminophen (Tylenol) 650 mg PO Q4H PRN PRN Reason: Pain (mild 1-3 )/fever Last Admin: 11/22/19 22:32 Dose: 650 mg Docusate Sodium (Colace) 100 mg PO DAILY PRN PRN Reason: Constipation Enoxaparin Sodium (Lovenox) 40 mg SUBCUT DAILY [facility] Last Admin: 11/23/19 08:56 Dose: 40 mg Piperacillin Sod/Tazobactam (Sod 3.375 gm/ Sodium Chloride) 100 mls @ 200 mls/ hr IV Q6HR [facility] Last Admin: 11/23/19 05:48 Dose: 200 mls/hr Metoprolol Tartrate (Lopressor) 50 mg PO DAILY [facility] Last Admin: 11/23/19 08:56 Dose: 50 mg Potassium Chloride (Klor-Con 10) 20 meq PO BIDMEALS [facility] Last Admin: 11/23/19 08:55 Dose: 20 meq Discontinued Medications Furosemide (Lasix) 40 mg IVPUSH NOW ONE Stop: 11/23/19 10:42 Potassium Chloride/Dextrose/Sod Cl (D5 Ns With 20 Meq Kcl) 1,000 mls @ 150 mls/ hr IV ASDIRECTED [facility] Last Admin: 11/23/19 03:48 Dose: 150 mls/hr Potassium Chloride (Klor-Con 10) 40 meq PO ONETIME ONE Stop: 11/22/19 14:12 Last Admin: 11/22/19 14:32 Dose: 40 meq Sodium Chloride (Saline Flush) 10 ml FLUSH ASDIRECTED PRN PRN Reason: Keep Vein Open Last Admin: 11/22/19 11:07 Dose: 10 ml - Exam Quality Assessment: DVT Prophylaxis. No: Supplemental Oxygen, Central Line/PICC , Urine Catheter General: Alert, Oriented, Cooperative, No Acute Distress HEENT: Pupils Equal, EOMI, Mucous Membr. Moist/[place] Neck: No JVD, No Thyromegaly. No: Lymphadenopathy Lungs: Clear to Auscultation, Normal Respiratory Effort. No: Crackles, Wheezing Cardiovascular: Regular Rate, Regular Rhythm, No Murmurs GI/Abdominal Exam: Normal Bowel Sounds, Soft, Non-Tender, No Distention. No: Rigid, Rebound (Male) Exam: Deferred Back Exam: Normal Inspection, Full Range of Motion Extremities: Normal Inspection, Pedal Edema Skin: Warm, Dry, Intact Neurological: No New Focal Deficit Psy/Mental Status: Alert, Normal Affect, Normal Mood Sepsis Event Note - Evaluation Sepsis Screening Result: No Definite Risk - Focused Exam Vital Signs: Vital Signs Temp Pulse Pulse Resp BP BP Pulse Ox 11/23/19 11:17 37.9 C 85 22 H 128/67 100 11/23/19 08:56 97 125/82 11/23/19 08:00 37.8 C 97 22 H 125/82 94 L 11/23/19 04:00 37.3 C 98 18 125/91 H 96 11/23/19 00:00 37.7 C 100 18 134/83 99 Date Exam was Performed: 11/23/19 Time Exam was Performed: 11:58 - Problem List & Annotations (1) Cellulitis SNOMED Code(s): 453386369 Code(s): L03.90 - CELLULITIS, UNSPECIFIED Status: Acute Current Visit: Yes (2) Hyponatremia SNOMED Code(s): 24589979 Code(s): E87.1 - HYPO-OSMOLALITY AND HYPONATREMIA Status: Acute Current Visit: Yes (3) Hypokalemia SNOMED Code(s): 12336525 Code(s): E87.6 - HYPOKALEMIA Status: Acute Current Visit: Yes (4) Thrombophlebitis leg SNOMED Code(s): 44228091 Code(s): I80.3 - PHLEBITIS AND THROMBOPHLEBITIS OF LOWER EXTREMITIES, UNSP Status: Acute Current Visit: Yes - Problem List Review Problem List Initiated/Reviewed/Updated: Yes - My Orders Last 24 Hours: My Active Orders 11/22/19 14:06 Patient Status [ADT] Routine Ambulate [RC] ASDIRECTED Up With Assistance [RC] ASDIRECTED Up ad [place] [RC] ASDIRECTED Up to Chair [RC] ASDIRECTED Vital Signs [RC] 00,04,08,12,16,20 Acetaminophen [Tylenol] 650 mg PO Q4H PRN Docusate Sodium [Colace] 100 mg PO DAILY PRN DVT/VTE Prophylaxis Reflex [OM.PC] Routine Resuscitation Status Routine 11/22/19 14:07 Oxygen Therapy [RC] PRN Pulse Oximetry [RC] PRN 11/22/19 14:08 Antiembolic Devices [RC] .Routine VTE/DVT Education [RC] PER UNIT ROUTINE Antiembolic Hose [OM.PC] Per Unit Routine 11/22/19 14:15 Piperacillin/Tazobactam [Zosyn] 3.375 gm Sodium Chloride 0.9% [Normal Saline] 100 ml IV Q6HR 11/22/19 18:00 Potassium Chloride [Klor-Con 10] 20 meq PO BIDMEALS 11/22/19 Lunch Regular Diet [DIET] 11/23/19 09:00 Enoxaparin [Lovenox] 40 mg SUBCUT DAILY Metoprolol Tartrate [Lopressor] 50 mg PO DAILY - Plan Plan:: 39 y/o M with past history of Hypertension and alcohol use, admitted with Rt LE cellulitis Impression and Plan: 1. Right LE cellulitis: Will continue abx IV Zosyn - the redness in the area is improving -Will stop IV fluids -BMP in AM 2. Hypertension: will continue Metoprolol at 50 mg daily 3. Edema of extremities: Will give t lasix 40 mg IV X 1 dose now and start him on lasix 20 mg PO daily from tomorrow 4. Hypokalemia: The etiology not clear, He has receive oral and IV potassium and recheck acceptable -Will continue potassium chloride at 20 meq BID and also give potassium chloride 40 meq PO X 1 dose Extra today ( 11/23/19) -Check Potassium in AM 5. Toes with cracks and possible fungal infection: advise to get evaluated by podiatry as out pt 6. Hypocalcemia: Will give calcium gluconate 2 gm IV X 1 dose today DVT prophylaxis: continue Enoxaparin Code Status: discussed with pt and he is full Code
[2019-11-23] MEDS: Acetaminophen 325 MG Tab PO PRN ×2 (11:34→20:18)
[2019-11-23] MEDS ORDERED: Potassium Chloride 10 MEQ Tab.ER PO ONE (11:45)
[2019-11-23] MEDS ORDERED: Calcium Gluconate 10% 1 GM/10 ML SDV IVPUSH ONE (11:59)
[2019-11-23] MEDS ORDERED: Calcium Gluconate 2 GM in Sodium Chloride 0.9% 100 ML IV ONE (12:19)
[2019-11-23] MEDS ORDERED: SODIUM CHLORIDE 0.9% IV ONE (15:00)
[2019-11-23] MEDS ORDERED: CALCIUM GLUCONATE IV ONE (15:00)
[2019-11-23] MEDS: Sodium Chloride 0.9% 10 ML Syringe FLUSH PRN (20:27)
[2019-11-24] MEDS: Piperacillin/Tazobactam 3.375 GM in Sodium Chloride 0.9% 100 ML IV SCH ×5 (00:41→23:50)
[2019-11-24 07:05] LABS: ANION GAP 11.6; CHLORIDE,CL 102 mmol/L (101-111); SODIUM,NA 132 mmol/L (135-145)
[2019-11-24] MEDS: Potassium Chloride 10 MEQ Tab.ER PO SCH ×2 (08:38→17:16)
[2019-11-24] MEDS: Furosemide 20 MG Tab PO SCH (08:39)
[2019-11-24] MEDS: Metoprolol Tartrate 50 MG Tab PO SCH (08:39)
[2019-11-24] MEDS: Enoxaparin 40 MG/0.4 ML Syringe SUBCUT SCH ×3 (08:39→10:43)
[2019-11-24] MEDS ORDERED: Calcium Gluconate 2 GM in Sodium Chloride 0.9% 100 ML IV ONE (09:30)
--- NOTE | 2019-11-24 10:52 | PCM.PN ---
- General Info Date of Service: 11/24/19 Admission Dx/Problem (Free Text): Admission Diagnosis/Problem Admission Diagnosis/Problem Cellulitis of Rt LE and Severe Hypokalemia Subjective Update: Today he was seen in room, doing well, pain is better, appetite is good, has no nausea or vomiting, no fever or Chill Functional Status: Reports: Pain Controlled, Tolerating Diet, Ambulating, Urinating - Review of Systems General: Reports: Weakness, Appetite (good). Denies: Fever, Chills HEENT: Denies: Dysphasia, Sinus Congestion, Sore Throat, Visual Changes Pulmonary: Denies: Shortness of Breath, Cough, Sputum, Wheezing Cardiovascular: Reports: Edema. Denies: Chest Pain, Dyspnea on Exertion, Lightheadedness Gastrointestinal: Denies: Abdominal Pain, Diarrhea, Nausea, Vomiting Genitourinary: Denies: Dysuria, Burning, Urgency, Flank Pain Musculoskeletal: Reports: Leg Pain, Foot Pain. Denies: Neck Pain, Shoulder Pain , Arm Pain, Hand Pain Skin: Denies: Cyanosis, Jaundice, Bruising, Pruritis, Rash Neurological: Denies: Confusion, Numbness, Paresthesia, Tremors Psychiatric: Reports: No Symptoms - Patient Data Vitals - Most Recent: Last Vital Signs Temp 37.7 C 11/24/19 08:00 Pulse 97 11/24/19 08:39 Resp 20 11/24/19 08:00 BP 113/69 11/24/19 08:39 Pulse Ox 100 11/24/19 08:00 Weight - Most Recent: 99.246 kg I&O - Last 24 Hours: Intake & Output 11/23/19 11/24/19 11/24/19 22:59 06:59 14:59 Intake Total 808 705 Output Total 2 Balance 808 703 Lab Results Last 24 Hours: Laboratory Results - last 24 hr 11/24/19 Range/Units 06:05 Sodium 132 L (135-145) mmol/L Potassium 3.6 (3.6-5.0) mmol/L Chloride 102 (101-111) mmol/L Carbon Dioxide 22.0 (21.0-31.0) mmol/L Anion Gap 11.6 BUN 7 (7-18) mg/dL Creatinine 0.6 (0.6-1.3) mg/dL Est Cr Clr Drug Dosing 143.57 mL/min Estimated GFR (MDRD) > 60 Glucose 86 (74-105) mg/dL Calcium 7.1 L (8.4-10.2) mg/dl Med Orders - Current: Current Medications Acetaminophen (Tylenol) 650 mg PO Q4H PRN PRN Reason: Pain (mild 1-3 )/fever Last Admin: 11/23/19 20:18 Dose: 650 mg Calcium Carbonate (Calcium Carbonate/Vitamin D 1250 Mg-200 Unit) 1 tab PO DAILY [facility] Docusate Sodium (Colace) 100 mg PO DAILY PRN PRN Reason: Constipation Enoxaparin Sodium (Lovenox) 40 mg SUBCUT DAILY [facility] Last Admin: 11/23/19 08:56 Dose: 40 mg Furosemide (Lasix) 20 mg PO DAILY [facility] Last Admin: 11/24/19 08:39 Dose: 20 mg Piperacillin Sod/Tazobactam (Sod 3.375 gm/ Sodium Chloride) 100 mls @ 200 mls/ hr IV Q6HR [facility] Last Infusion: 11/24/19 06:14 Dose: Infused Vancomycin HCl 1 gm/ Premix 200 mls @ 133.333 mls/hr IV Q8H [facility] Last Admin: 11/24/19 10:42 Dose: 133.333 mls/hr Metoprolol Tartrate (Lopressor) 50 mg PO DAILY [facility] Last Admin: 11/24/19 08:39 Dose: 50 mg Potassium Chloride (Klor-Con 10) 20 meq PO BIDMEALS [facility] Last Admin: 11/24/19 08:38 Dose: 20 meq Vancomycin HCl (Pharmacy To Dose - Vancomycin) 1 dose .XX ASDIRECTED [facility] Discontinued Medications Calcium Gluconate (Calcium Gluconate) 2 gm IVPUSH ONETIME ONE Stop: 11/23/19 12:00 Last Admin: 11/23/19 15:59 Dose: Not Given Furosemide (Lasix) 40 mg IVPUSH NOW ONE Stop: 11/23/19 10:42 Last Admin: 11/23/19 11:24 Dose: 40 mg Potassium Chloride/Dextrose/Sod Cl (D5 Ns With 20 Meq Kcl) 1,000 mls @ 150 mls/ hr IV ASDIRECTED [facility] Last Admin: 11/23/19 03:48 Dose: 150 mls/hr Calcium Gluconate 2 gm/ Sodium (Chloride) 120 mls @ 100 mls/hr IV ONETIME ONE Stop: 11/23/19 13:30 Last Admin: 11/23/19 15:59 Dose: Not Given Calcium Gluconate 2 gm/ Sodium (Chloride) 270 mls @ 225 mls/hr IV ONETIME ONE Stop: 11/23/19 16:11 Last Admin: 11/23/19 14:49 Dose: 225 mls/hr Calcium Gluconate 2 gm/ Sodium (Chloride) 120 mls @ 100 mls/hr IV ONETIME ONE Stop: 11/24/19 10:41 Potassium Chloride (Klor-Con 10) 40 meq PO ONETIME ONE Stop: 11/22/19 14:12 Last Admin: 11/22/19 14:32 Dose: 40 meq Potassium Chloride (Klor-Con 10) 40 meq PO ONETIME ONE Stop: 11/23/19 11:46 Last Admin: 11/23/19 12:45 Dose: 40 meq Sodium Chloride (Saline Flush) 10 ml FLUSH ASDIRECTED PRN PRN Reason: Keep Vein Open Last Admin: 11/23/19 20:27 Dose: 10 ml - Exam Quality Assessment: DVT Prophylaxis. No: Supplemental Oxygen, Urine Catheter General: Alert, Oriented, Cooperative, No Acute Distress HEENT: Pupils Equal, Pupils Reactive, EOMI, Mucous Membr. Moist/[place] Neck: No JVD, No Thyromegaly. No: Lymphadenopathy Lungs: Clear to Auscultation, Normal Respiratory Effort Cardiovascular: Regular Rate, Regular Rhythm, No Murmurs GI/Abdominal Exam: Normal Bowel Sounds, Soft, Non-Tender, No Organomegaly, No Distention (Male) Exam: Deferred Back Exam: Normal Inspection, Full Range of Motion Extremities: Normal Inspection, Pedal Edema Skin: Warm, Dry, Intact Neurological: No New Focal Deficit Psy/Mental Status: Alert, Normal Affect, Normal Mood Sepsis Event Note - Evaluation Sepsis Screening Result: No Definite Risk - Focused Exam Vital Signs: Vital Signs Temp Pulse Pulse Resp BP BP Pulse Ox 11/24/19 08:39 97 113/69 11/24/19 08:00 37.7 C 97 20 113/69 100 11/24/19 04:11 36.9 C 98 20 135/88 99 11/24/19 00:50 37.6 C 87 20 113/66 96 Date Exam was Performed: 11/24/19 Time Exam was Performed: 10:47 - Problem List & Annotations (1) Cellulitis SNOMED Code(s): 613019665 Code(s): L03.90 - CELLULITIS, UNSPECIFIED Status: Acute Current Visit: Yes (2) Hyponatremia SNOMED Code(s): 65278843 Code(s): E87.1 - HYPO-OSMOLALITY AND HYPONATREMIA Status: Acute Current Visit: Yes (3) Hypokalemia SNOMED Code(s): 82594378 Code(s): E87.6 - HYPOKALEMIA Status: Acute Current Visit: Yes (4) Thrombophlebitis leg SNOMED Code(s): 50233572 Code(s): I80.3 - PHLEBITIS AND THROMBOPHLEBITIS OF LOWER EXTREMITIES, UNSP Status: Acute Current Visit: Yes - Problem List Review Problem List Initiated/Reviewed/Updated: Yes - My Orders Last 24 Hours: My Active Orders 11/24/19 09:00 Furosemide [Lasix] 20 mg PO DAILY 11/24/19 10:00 Pharmacy to Dose - Vancomycin 1 dose .XX ASDIRECTED 11/24/19 10:30 Vancomycin/Water for INJ (PEG) [Vancomycin 1 GM/200 ML Premix] 1 gm Premix Bag 1 bag IV Q8H 11/25/19 09:00 Calcium Carbonate/Vitamin D3 [Calcium Carbonate/Vitamin D 1250 MG-200 Unit] 1 tab PO DAILY - Plan Plan:: 39 y/o M with past history of Hypertension and alcohol use, admitted with Rt LE cellulitis Impression and Plan: 1. Right LE cellulitis: Will continue abx IV Zosyn and add Vancomycin from today ( 11/24/19) -consulted pharmacy to check level and dose Vancomycin - the redness in the area is improving but very slowly -BMP in AM 2. Hypertension: will continue Metoprolol at 50 mg daily 3. Edema of extremities: Will continue him on lasix 20 mg PO daily 4. Hypokalemia: The etiology not clear, He has receive oral and IV potassium and recheck acceptable -Will continue potassium chloride at 20 meq BID and also give potassium chloride 40 meq PO X 1 dose Extra on ( 11/23/19) -re- check Potassium acceptable 5. Toes with cracks and possible fungal infection: advise to get evaluated by podiatry as out pt 6. Hypocalcemia: has received calcium gluconate 2 gm IV X 1 dose on 11/23/19 and will start him on oral calcium supplement DVT prophylaxis: continue Enoxaparin Code Status: discussed with pt and he is full Code
[2019-11-24] MEDS: Calcium Carbonate/Vitamin D3 1250 MG-200 Unit Tab PO SCH (12:22)
[2019-11-24] MEDS: Acetaminophen 325 MG Tab PO PRN (17:16)
[2019-11-24] MEDS: Sodium Chloride 0.9% 10 ML Syringe FLUSH PRN (23:50)
[2019-11-25] MEDS: Sodium Chloride 0.9% 10 ML Syringe FLUSH PRN ×4 (02:03→06:40)
[2019-11-25] MEDS: Piperacillin/Tazobactam 3.375 GM in Sodium Chloride 0.9% 100 ML IV SCH ×3 (06:02→18:17)
[2019-11-25] MEDS: Potassium Chloride 10 MEQ Tab.ER PO SCH ×2 (09:24→18:18)
[2019-11-25] MEDS: Enoxaparin 40 MG/0.4 ML Syringe SUBCUT SCH (09:24)
[2019-11-25] MEDS: Furosemide 20 MG Tab PO SCH (09:24)
[2019-11-25] MEDS: Calcium Carbonate/Vitamin D3 1250 MG-200 Unit Tab PO SCH (09:24)
[2019-11-25] MEDS: Metoprolol Tartrate 50 MG Tab PO SCH (09:25)
--- NOTE | 2019-11-25 10:52 | PCM.PN ---
- General Info Date of Service: 11/25/19 Admission Dx/Problem (Free Text): Admission Diagnosis/Problem Admission Diagnosis/Problem Cellulitis of Rt LE and Severe Hypokalemia Subjective Update: Today he was seen in room, doing well, pain is better, appetite is good, has no nausea or vomiting, no fever or Chill Functional Status: Reports: Pain Controlled, Tolerating Diet, Ambulating, Urinating - Review of Systems General: Reports: Weakness, Appetite (good). Denies: Fever, Chills HEENT: Denies: Headaches, Sinus Congestion, Sore Throat, Visual Changes Pulmonary: Denies: Shortness of Breath, Cough, Wheezing Cardiovascular: Reports: Edema. Denies: Chest Pain, Lightheadedness Gastrointestinal: Denies: Abdominal Pain, Diarrhea, Nausea, Vomiting Genitourinary: Denies: Dysuria, Frequency, Burning, Flank Pain Musculoskeletal: Reports: Foot Pain. Denies: Neck Pain, Hand Pain Skin: Denies: Cyanosis, Bruising, Pruritis, Rash Neurological: Denies: Headache, Numbness, Tremors Psychiatric: Reports: No Symptoms - Patient Data Vitals - Most Recent: Last Vital Signs Temp 37.3 C 11/25/19 07:45 Pulse 101 H 11/25/19 09:25 Resp 20 11/25/19 07:45 BP 143/83 H 11/25/19 09:25 Pulse Ox 97 11/25/19 07:45 Weight - Most Recent: 101.605 kg I&O - Last 24 Hours: Intake & Output 11/24/19 11/25/19 11/25/19 22:59 06:59 14:59 Intake Total 197 1211 240 Output Total 2 Balance 197 1209 240 Med Orders - Current: Current Medications Acetaminophen (Tylenol) 650 mg PO Q4H PRN PRN Reason: Pain (mild 1-3 )/fever Last Admin: 11/24/19 17:16 Dose: 650 mg Calcium Carbonate (Calcium Carbonate/Vitamin D 1250 Mg-200 Unit) 1 tab PO DAILY [facility] Last Admin: 11/25/19 09:24 Dose: 1 tab Docusate Sodium (Colace) 100 mg PO DAILY PRN PRN Reason: Constipation Enoxaparin Sodium (Lovenox) 40 mg SUBCUT DAILY [facility] Last Admin: 11/25/19 09:24 Dose: 40 mg Furosemide (Lasix) 20 mg PO DAILY [facility] Last Admin: 11/25/19 09:24 Dose: 20 mg Piperacillin Sod/Tazobactam (Sod 3.375 gm/ Sodium Chloride) 100 mls @ 200 mls/ hr IV Q6HR [facility] Last Infusion: 11/25/19 06:39 Dose: Infused Vancomycin HCl 1 gm/ Premix 200 mls @ 133.333 mls/hr IV Q8H [facility] Last Infusion: 11/25/19 03:54 Dose: Infused Metoprolol Tartrate (Lopressor) 50 mg PO DAILY [facility] Last Admin: 11/25/19 09:25 Dose: 50 mg Potassium Chloride (Klor-Con 10) 20 meq PO BIDMEALS [facility] Last Admin: 11/25/19 09:24 Dose: 20 meq Sodium Chloride (Saline Flush) 10 ml FLUSH ASDIRECTED PRN PRN Reason: Keep Vein Open Last Admin: 11/25/19 06:40 Dose: 10 ml Vancomycin HCl (Pharmacy To Dose - Vancomycin) 1 dose .XX ASDIRECTED [facility] Discontinued Medications Calcium Gluconate (Calcium Gluconate) 2 gm IVPUSH ONETIME ONE Stop: 11/23/19 12:00 Last Admin: 11/23/19 15:59 Dose: Not Given Furosemide (Lasix) 40 mg IVPUSH NOW ONE Stop: 11/23/19 10:42 Last Admin: 11/23/19 11:24 Dose: 40 mg Potassium Chloride/Dextrose/Sod Cl (D5 Ns With 20 Meq Kcl) 1,000 mls @ 150 mls/ hr IV ASDIRECTED [facility] Last Admin: 11/23/19 03:48 Dose: 150 mls/hr Calcium Gluconate 2 gm/ Sodium (Chloride) 120 mls @ 100 mls/hr IV ONETIME ONE Stop: 11/23/19 13:30 Last Admin: 11/23/19 15:59 Dose: Not Given Calcium Gluconate 2 gm/ Sodium (Chloride) 270 mls @ 225 mls/hr IV ONETIME ONE Stop: 11/23/19 16:11 Last Admin: 11/23/19 14:49 Dose: 225 mls/hr Calcium Gluconate 2 gm/ Sodium (Chloride) 120 mls @ 100 mls/hr IV ONETIME ONE Stop: 11/24/19 10:41 Last Admin: 11/24/19 12:38 Dose: Not Given Potassium Chloride (Klor-Con 10) 40 meq PO ONETIME ONE Stop: 11/22/19 14:12 Last Admin: 11/22/19 14:32 Dose: 40 meq Potassium Chloride (Klor-Con 10) 40 meq PO ONETIME ONE Stop: 11/23/19 11:46 Last Admin: 11/23/19 12:45 Dose: 40 meq Sodium Chloride (Saline Flush) 10 ml FLUSH ASDIRECTED PRN PRN Reason: Keep Vein Open Last Admin: 11/23/19 20:27 Dose: 10 ml - Exam Quality Assessment: DVT Prophylaxis. No: Supplemental Oxygen, Central Line/PICC , Urine Catheter General: Alert, Oriented, Cooperative, No Acute Distress HEENT: Pupils Equal, Pupils Reactive, EOMI, Mucous Membr. Moist/[place] Neck: No JVD, No Thyromegaly Lungs: Clear to Auscultation, Normal Respiratory Effort Cardiovascular: Regular Rate, Regular Rhythm, No Murmurs GI/Abdominal Exam: Normal Bowel Sounds, Soft, Non-Tender, No Organomegaly, No Distention (Male) Exam: Deferred Back Exam: Normal Inspection, Full Range of Motion Extremities: Normal Inspection, Pedal Edema Skin: Warm, Dry, Intact Neurological: No New Focal Deficit Psy/Mental Status: Alert, Normal Affect, Normal Mood Sepsis Event Note - Evaluation Sepsis Screening Result: No Definite Risk - Focused Exam Vital Signs: Vital Signs Temp Pulse Pulse Resp BP BP Pulse Ox 11/25/19 09:25 101 H 143/83 H 11/25/19 07:45 37.3 C 101 H 20 143/83 H 97 11/25/19 04:04 37.6 C 94 20 123/78 97 11/24/19 23:12 37.3 C 91 20 127/77 100 Date Exam was Performed: 11/25/19 Time Exam was Performed: 10:41 - Problem List & Annotations (1) Cellulitis SNOMED Code(s): 049423003 Code(s): L03.90 - CELLULITIS, UNSPECIFIED Status: Acute Current Visit: Yes (2) Hyponatremia SNOMED Code(s): 15577771 Code(s): E87.1 - HYPO-OSMOLALITY AND HYPONATREMIA Status: Acute Current Visit: Yes (3) Hypokalemia SNOMED Code(s): 17258730 Code(s): E87.6 - HYPOKALEMIA Status: Acute Current Visit: Yes (4) Thrombophlebitis leg SNOMED Code(s): 14178427 Code(s): I80.3 - PHLEBITIS AND THROMBOPHLEBITIS OF LOWER EXTREMITIES, UNSP Status: Acute Current Visit: Yes - Problem List Review Problem List Initiated/Reviewed/Updated: Yes - My Orders Last 24 Hours: My Active Orders 11/24/19 10:00 Pharmacy to Dose - Vancomycin 1 dose .XX ASDIRECTED 11/24/19 10:30 Vancomycin/Water for INJ (PEG) [Vancomycin 1 GM/200 ML Premix] 1 gm Premix Bag 1 bag IV Q8H 11/24/19 11:45 Calcium Carbonate/Vitamin D3 [Calcium Carbonate/Vitamin D 1250 MG-200 Unit] 1 tab PO DAILY 11/24/19 23:16 Sodium Chloride 0.9% [Saline Flush] 10 ml FLUSH ASDIRECTED PRN - Plan Plan:: 39 y/o M with past history of Hypertension and alcohol use, admitted with Rt LE cellulitis Impression and Plan: 1. Right LE cellulitis: Will continue abx IV Zosyn and add Vancomycin from today ( 11/24/19) -consulted pharmacy to check level and dose Vancomycin - the redness in the area is improving but very slowly -BMP in AM 2. Hypertension: will continue Metoprolol at 50 mg daily 3. Edema of extremities: Will hold lasix [ 20 mg PO daily] and start him on lasix 40 mg IV BID 4. Hypokalemia: The etiology not clear, He has receive oral and IV potassium and recheck acceptable -Will continue potassium chloride at 20 meq BID and also give potassium chloride 40 meq PO X 1 dose Extra on ( 11/23/19) -re- check Potassium acceptable 5. Toes with cracks and possible fungal infection: Will get evaluated by podiatry , will consult Podiatry 6. Hypocalcemia: has received calcium gluconate 2 gm IV X 1 dose on 11/23/19 and will start him on oral calcium supplement DVT prophylaxis: continue Enoxaparin Code Status: discussed with pt and he is full Code
[2019-11-25] MEDS ORDERED: Furosemide 40 MG/4 ML VIAL IV SCH (11:00)
[2019-11-25] MEDS: Furosemide 40 MG/4 ML VIAL IVPUSH SCH ×2 (11:24→16:06)
[2019-11-25] MEDS: Acetaminophen 325 MG Tab PO PRN (20:13)
[2019-11-26] MEDS: Sodium Chloride 0.9% 10 ML Syringe FLUSH PRN ×11 (00:09→23:45)
[2019-11-26] MEDS: Piperacillin/Tazobactam 3.375 GM in Sodium Chloride 0.9% 100 ML IV SCH ×5 (00:10→23:44)
[2019-11-26 07:20] LABS: ANION GAP 12.7; CHLORIDE,CL 98 mmol/L (101-111); SODIUM,NA 128 mmol/L (135-145)
[2019-11-26] MEDS: Metoprolol Tartrate 50 MG Tab PO SCH (08:59)
[2019-11-26] MEDS: Calcium Carbonate/Vitamin D3 1250 MG-200 Unit Tab PO SCH (08:59)
[2019-11-26] MEDS: Enoxaparin 40 MG/0.4 ML Syringe SUBCUT SCH (09:00)
[2019-11-26] MEDS: Potassium Chloride 10 MEQ Tab.ER PO SCH ×2 (09:00→17:57)
[2019-11-26] MEDS: Furosemide 40 MG/4 ML VIAL IVPUSH SCH ×2 (09:00→13:36)
--- NOTE | 2019-11-26 13:29 | PCM.PN ---
- General Info Date of Service: 11/26/19 Admission Dx/Problem (Free Text): Admission Diagnosis/Problem Admission Diagnosis/Problem Cellulitis of Rt LE and Severe Hypokalemia Subjective Update: Today he was seen in room, doing well, pain is better, appetite is good, has no nausea or vomiting, no fever or Chill Functional Status: Reports: Pain Controlled, Tolerating Diet, Ambulating, Urinating - Review of Systems General: Reports: Weakness, Appetite (good). Denies: Fever, Chills HEENT: Denies: Eye Pain, Headaches, Sinus Congestion, Sore Throat, Visual Changes Pulmonary: Denies: Shortness of Breath, Cough, Sputum, Wheezing Cardiovascular: Reports: Edema. Denies: Chest Pain, Dyspnea on Exertion Gastrointestinal: Denies: Abdominal Pain, Nausea, Vomiting Genitourinary: Denies: Dysuria, Frequency, Burning, Flank Pain Musculoskeletal: Reports: Leg Pain, Foot Pain. Denies: Neck Pain Skin: Denies: Cyanosis, Jaundice, Bruising, Pruritis, Rash Neurological: Denies: Confusion, Numbness, Tremors Psychiatric: Reports: No Symptoms - Patient Data Vitals - Most Recent: Last Vital Signs Temp 37.2 C 11/26/19 08:36 Pulse 96 11/26/19 08:59 Resp 20 11/26/19 08:36 BP 133/83 11/26/19 08:59 Pulse Ox 98 11/26/19 08:36 Weight - Most Recent: 99.155 kg I&O - Last 24 Hours: Intake & Output 11/25/19 11/26/19 11/26/19 22:59 06:59 14:59 Intake Total 201 1249 191 Output Total 3 Balance 201 1246 191 Lab Results Last 24 Hours: Laboratory Results - last 24 hr 11/25/19 11/26/19 Range/Units 18:05 06:05 Sodium 128 L (135-145) mmol/L Potassium 3.7 (3.6-5.0) mmol/L Chloride 98 L (101-111) mmol/L Carbon Dioxide 21.0 (21.0-31.0) mmol/L Anion Gap 12.7 BUN 7 (7-18) mg/dL Creatinine 0.5 L (0.6-1.3) mg/dL Est Cr Clr Drug Dosing 172.29 mL/min Estimated GFR (MDRD) > 60 Glucose 89 (74-105) mg/dL Calcium 7.0 L (8.4-10.2) mg/dl Vancomycin Trough 10.8 (10-15) ug/ml Med Orders - Current: Current Medications Acetaminophen (Tylenol) 650 mg PO Q4H PRN PRN Reason: Pain (mild 1-3 )/fever Last Admin: 11/25/19 20:13 Dose: 650 mg Calcium Carbonate (Calcium Carbonate/Vitamin D 1250 Mg-200 Unit) 1 tab PO DAILY [facility] Last Admin: 11/26/19 08:59 Dose: 1 tab Docusate Sodium (Colace) 100 mg PO DAILY PRN PRN Reason: Constipation Enoxaparin Sodium (Lovenox) 40 mg SUBCUT DAILY [facility] Last Admin: 11/26/19 09:00 Dose: 40 mg Furosemide (Lasix) 40 mg IVPUSH BIDDIURETIC [facility] Last Admin: 11/26/19 09:00 Dose: 40 mg Piperacillin Sod/Tazobactam (Sod 3.375 gm/ Sodium Chloride) 100 mls @ 200 mls/ hr IV Q6HR [facility] Last Admin: 11/26/19 12:47 Dose: 200 mls/hr Vancomycin HCl 1 gm/ Premix 200 mls @ 133.333 mls/hr IV Q8H [facility] Last Infusion: 11/26/19 12:49 Dose: Infused Metoprolol Tartrate (Lopressor) 50 mg PO DAILY [facility] Last Admin: 11/26/19 08:59 Dose: 50 mg Potassium Chloride (Klor-Con 10) 20 meq PO BIDMEALS [facility] Last Admin: 11/26/19 09:00 Dose: 20 meq Sodium Chloride (Saline Flush) 10 ml FLUSH ASDIRECTED PRN PRN Reason: Keep Vein Open Last Admin: 11/26/19 12:48 Dose: 10 ml Vancomycin HCl (Pharmacy To Dose - Vancomycin) 1 dose .XX ASDIRECTED [facility] Discontinued Medications Calcium Gluconate (Calcium Gluconate) 2 gm IVPUSH ONETIME ONE Stop: 11/23/19 12:00 Last Admin: 11/23/19 15:59 Dose: Not Given Furosemide (Lasix) 40 mg IVPUSH NOW ONE Stop: 11/23/19 10:42 Last Admin: 11/23/19 11:24 Dose: 40 mg Furosemide (Lasix) 20 mg PO DAILY [facility] Last Admin: 11/25/19 09:24 Dose: 20 mg Furosemide (Lasix) 40 mg IV BID@1100,1500 [facility] Stop: 11/25/19 15:01 Furosemide (Lasix) 40 mg IVPUSH BID@1100,1500 [facility] Stop: 11/25/19 15:01 Last Admin: 11/25/19 16:06 Dose: 40 mg Potassium Chloride/Dextrose/Sod Cl (D5 Ns With 20 Meq Kcl) 1,000 mls @ 150 mls/ hr IV ASDIRECTED [facility] Last Admin: 11/23/19 03:48 Dose: 150 mls/hr Calcium Gluconate 2 gm/ Sodium (Chloride) 120 mls @ 100 mls/hr IV ONETIME ONE Stop: 11/23/19 13:30 Last Admin: 11/23/19 15:59 Dose: Not Given Calcium Gluconate 2 gm/ Sodium (Chloride) 270 mls @ 225 mls/hr IV ONETIME ONE Stop: 11/23/19 16:11 Last Admin: 11/23/19 14:49 Dose: 225 mls/hr Calcium Gluconate 2 gm/ Sodium (Chloride) 120 mls @ 100 mls/hr IV ONETIME ONE Stop: 11/24/19 10:41 Last Admin: 11/24/19 12:38 Dose: Not Given Potassium Chloride (Klor-Con 10) 40 meq PO ONETIME ONE Stop: 11/22/19 14:12 Last Admin: 11/22/19 14:32 Dose: 40 meq Potassium Chloride (Klor-Con 10) 40 meq PO ONETIME ONE Stop: 11/23/19 11:46 Last Admin: 11/23/19 12:45 Dose: 40 meq Sodium Chloride (Saline Flush) 10 ml FLUSH ASDIRECTED PRN PRN Reason: Keep Vein Open Last Admin: 11/23/19 20:27 Dose: 10 ml - Exam Quality Assessment: DVT Prophylaxis. No: Supplemental Oxygen, Urine Catheter General: Alert, Oriented, Cooperative, No Acute Distress HEENT: Pupils Equal, Pupils Reactive, EOMI, Mucous Membr. Moist/[place] Neck: No JVD, No Thyromegaly. No: Thyromegaly Lungs: Clear to Auscultation, Normal Respiratory Effort, Crackles. No: Wheezing Cardiovascular: Regular Rate, Regular Rhythm, No Murmurs GI/Abdominal Exam: Normal Bowel Sounds, No Organomegaly, No Distention (Male) Exam: Deferred Back Exam: Normal Inspection, Full Range of Motion Extremities: Normal Inspection, Pedal Edema Skin: Warm, Dry, Intact Neurological: No New Focal Deficit Psy/Mental Status: Alert, Normal Affect, Normal Mood Sepsis Event Note - Evaluation Sepsis Screening Result: No Definite Risk - Focused Exam Vital Signs: Vital Signs Temp Pulse Pulse Resp BP BP Pulse Ox 11/26/19 08:59 96 133/83 11/26/19 08:36 37.2 C 96 20 133/83 98 11/26/19 04:00 37.0 C 20 Date Exam was Performed: 11/26/19 Time Exam was Performed: 13:24 - Problem List & Annotations (1) Cellulitis SNOMED Code(s): 312782716 Code(s): L03.90 - CELLULITIS, UNSPECIFIED Status: Acute Current Visit: Yes (2) Hyponatremia SNOMED Code(s): 58729301 Code(s): E87.1 - HYPO-OSMOLALITY AND HYPONATREMIA Status: Acute Current Visit: Yes (3) Hypokalemia SNOMED Code(s): 09263742 Code(s): E87.6 - HYPOKALEMIA Status: Acute Current Visit: Yes (4) Thrombophlebitis leg SNOMED Code(s): 80565531 Code(s): I80.3 - PHLEBITIS AND THROMBOPHLEBITIS OF LOWER EXTREMITIES, UNSP Status: Acute Current Visit: Yes - Problem List Review Problem List Initiated/Reviewed/Updated: Yes - My Orders Last 24 Hours: My Active Orders 11/26/19 08:00 Furosemide [Lasix] 40 mg IVPUSH BIDDIURETIC - Plan Plan:: 39 y/o M with past history of Hypertension and alcohol use, admitted with Rt LE cellulitis Impression and Plan: 1. Right LE cellulitis: Will continue abx IV Zosyn and add Vancomycin from today ( 11/24/19) -consulted pharmacy to check level and dose Vancomycin - the redness in the area has improved significantly and he will be able to go home tomorrow on oral abx -BMP in AM 2. Hypertension: will continue Metoprolol at 50 mg daily 3. Edema of extremities: Will hold lasix [ 20 mg PO daily] and continue him on lasix 40 mg IV BID X 1 more day 4. Hypokalemia: The etiology not clear, He has receive oral and IV potassium and recheck acceptable -Will continue potassium chloride at 20 meq BID and also give potassium chloride 40 meq PO X 1 dose Extra on ( 11/23/19) -re- check Potassium acceptable 5. Toes with cracks and possible fungal infection: Will get evaluated by podiatry consulted Podiatry but not seen yet 6. Hypocalcemia: He has received calcium gluconate 2 gm IV X 1 dose on 11/23/19 and will continue him on oral calcium supplement DVT prophylaxis: continue Enoxaparin Code Status: discussed with pt and he is full Code
[2019-11-26] MEDS: Acetaminophen 325 MG Tab PO PRN (20:23)
[2019-11-27] MEDS: Sodium Chloride 0.9% 10 ML Syringe FLUSH PRN (06:05)
[2019-11-27] MEDS: Piperacillin/Tazobactam 3.375 GM in Sodium Chloride 0.9% 100 ML IV SCH ×2 (06:05→11:12)
[2019-11-27 07:02] LABS: ANION GAP 11.5; CHLORIDE,CL 97 mmol/L (101-111); SODIUM,NA 129 mmol/L (135-145)
[2019-11-27] MEDS ORDERED: Potassium Chloride 10 MEQ Tab.ER PO ONE (08:21)
[2019-11-27] MEDS: Metoprolol Tartrate 50 MG Tab PO SCH (09:08)
[2019-11-27] MEDS: Potassium Chloride 10 MEQ Tab.ER PO SCH (09:09)
[2019-11-27] MEDS: Calcium Carbonate/Vitamin D3 1250 MG-200 Unit Tab PO SCH (09:09)
[2019-11-27] MEDS: Furosemide 40 MG/4 ML VIAL IVPUSH SCH (09:12)
[2019-11-27] MEDS: Enoxaparin 40 MG/0.4 ML Syringe SUBCUT SCH (09:13)
--- NOTE | 2019-11-27 09:24 | PCM.DCSUM1 ---
Discharge Summary - Hospital Course Free Text/Narrative:: This is a 39 old Male with past medical history of Hypertension and likely alcohol abuse ( he is denying) but his blood alcohol was 83. He came to ED with complain od RT LE pain and swelling and warmth for the last 2-3 days and getting worse. He had U/S of RT LE and no DVT but superficial thrombophlebitis. on lab he was noted to have Hyponatremia and severe Hypokalemia. He was admitted for Cellulitis of Rt LE. After admission he was started on IV vancomycin and Zosyn and now the erythema and pain has improved significantly; He also nited to have B/L swelling and started him on lasix 40 mg IV BID and he responded well. He will go home on augmentin and oral lasix 40 mg PO daily. He is advised to follow with PMD As soon as possible either or Monday or if not possible in these 2 days then definitely of Monday (12/02/2019) - Discharge Data Discharge Date: 11/27/19 Discharge Disposition: Home, Self-Care 01 Condition: Good - Referral to Home Health Primary Care Physician: PCP None - Discharge Diagnosis/Problem(s) (1) Cellulitis SNOMED Code(s): 847908184 ICD Code: L03.90 - CELLULITIS, UNSPECIFIED Status: Acute Current Visit: Yes Qualifiers: Site of cellulitis: extremity Laterality: right (2) Hyponatremia SNOMED Code(s): 89254330 ICD Code: E87.1 - HYPO-OSMOLALITY AND HYPONATREMIA Status: Acute Priority : Medium Current Visit: Yes (3) Hypokalemia SNOMED Code(s): 54405751 ICD Code: E87.6 - HYPOKALEMIA Status: Acute Priority: High Current Visit: Yes (4) Thrombophlebitis leg SNOMED Code(s): 55013622 ICD Code: I80.3 - PHLEBITIS AND THROMBOPHLEBITIS OF LOWER EXTREMITIES, UNSP Status: Acute Current Visit: Yes - Patient Instructions Diet: Heart Healthy Diet Activity: As Tolerated Showering/Bathing: May Shower Notify Provider of: Fever, Increased Pain, Swelling and Redness Other/Special Instructions: This is a 39 old Male with past medical history of Hypertension and likely alcohol abuse ( he is denying) but his blood alcohol was 83. He came to ED with complain od RT LE pain and swelling and warmth for the last 2-3 days and getting worse. He had U/S of RT LE and no DVT but superficial thrombophlebitis. on lab he was noted to have Hyponatremia and severe Hypokalemia. He was admitted for Cellulitis of Rt LE. After admission he was started on IV vancomycin and Zosyn and now the erythema and pain has improved significantly; He also nited to have B/L swelling and started him on lasix 40 mg IV BID and he responded well. He will go home on augmentin and oral lasix 40 mg PO daily. He is advised to follow with PMD As soon as possible either or Monday or if not possible in these 2 days then definitely of Monday (12/02/2019) . He is also advise to Follow with Podiatry, he was seen by Podiatry in hospital - Discharge Plan *PRESCRIPTION DRUG MONITORING PROGRAM REVIEWED*: No *COPY OF PRESCRIPTION DRUG MONITORING REPORT IN PATIENT CHARITY: No Prescriptions/Med Rec: Amoxicillin/Potassium Clav [Augmentin 875-125 Tablet] 1 each PO BID #20 tablet Doxycycline [Vibramycin] 100 mg PO BID #20 cap Furosemide [Lasix] 40 mg PO DAILY #20 tablet Home Medications: Home Meds Metoprolol Tartrate [Lopressor] 50 mg PO DAILY 11/22/19 [History] Potassium Chloride 20 meq PO BID 11/22/19 [History] Amoxicillin/Potassium Clav [Augmentin 875-125 Tablet] 1 each PO BID #20 tablet 11/27/19 [Rx] Doxycycline [Vibramycin] 100 mg PO BID #20 cap 11/27/19 [Rx] Furosemide [Lasix] 40 mg PO DAILY #20 tablet 11/27/19 [Rx] Referrals: Sonya Alexander DPM [Physician] - - Discharge Summary/Plan Comment DC Time >30 min.: Yes Discharge Summary/Plan Comment: 39 y/o M with past history of Hypertension and alcohol use, admitted with Rt LE cellulitis Impression and Plan: 1. Right LE cellulitis: He was on abx IV Zosyn and add Vancomycin -consulted pharmacy to check level and dose Vancomycin - the redness in the area has improved significantly and he will be able to go home today -he will go home on Aurmentin at 875 mg PO BID X 7 days and Doxycycline at 100 mg BID X 7 days -Follow with PMD on ( 11/28/19) or Monday ( 11/29/19) 2. Hypertension: will continue Metoprolol at 50 mg daily 3. Edema of extremities: Will continue lasix at 40 mg PO daily 4. Hypokalemia: The etiology not clear, He has receive oral and IV potassium and recheck acceptable -Will continue potassium chloride at 20 meq BID -re- check Potassium acceptable 5. Toes with cracks and possible fungal infection: He was seen by podiatry and he will be followed in Clinic 6. Hypocalcemia: He has received calcium gluconate 2 gm IV X 1 dose on 11/23/19 and will continue him on oral calcium supplement - General Info Date of Service: 11/27/19 Admission Dx/Problem (Free Text: Admission Diagnosis/Problem Admission Diagnosis/Problem Cellulitis of Rt LE and Severe Hypokalemia Subjective Update: Today he was seen in room, doing well, pain is better, appetite is good, has no nausea or vomiting, no fever or Chill and he will be going home today Functional Status: Reports: Pain Controlled, Tolerating Diet, Ambulating, Urinating - Review of Systems General: Reports: Appetite (Good). Denies: Fever, Weakness, Chills HEENT: Denies: Dysphasia, Headaches, Sinus Congestion, Sore Throat, Visual Changes Pulmonary: Denies: Shortness of Breath, Cough, Sputum, Wheezing Cardiovascular: Reports: Edema. Denies: Chest Pain, Dyspnea on Exertion, Lightheadedness Genitourinary: Denies: Dysuria, Burning, Urgency, Flank Pain Musculoskeletal: Reports: Leg Pain. Denies: Neck Pain, Shoulder Pain, Arm Pain Skin: Denies: Cyanosis, Bruising, Pruritis, Rash Neurological: Denies: Confusion, Numbness, Tingling, Tremors Psychiatric: Denies: Confusion, Anxiety - Patient Data Vitals - Most Recent: Last Vital Signs Temp 37.3 C 11/27/19 08:10 Pulse 110 H 11/27/19 09:08 Resp 20 11/27/19 08:10 BP 139/84 11/27/19 09:08 Pulse Ox 99 11/27/19 08:10 Weight - Most Recent: 98.339 kg I&O - Last 24 hours: Intake & Output 11/26/19 11/27/19 11/27/19 22:59 06:59 14:59 Intake Total 1702 690 Balance 1702 690 Lab Results - Last 24 hrs: Laboratory Results - last 24 hr 11/27/19 11/27/19 Range/Units 02:05 06:11 Sodium 129 L (135-145) mmol/L Potassium 3.5 L (3.6-5.0) mmol/L Chloride 97 L (101-111) mmol/L Carbon Dioxide 24.0 (21.0-31.0) mmol/L Anion Gap 11.5 BUN 8 (7-18) mg/dL Creatinine 0.7 (0.6-1.3) mg/dL Est Cr Clr Drug Dosing 123.06 mL/min Estimated GFR (MDRD) > 60 Glucose 99 (74-105) mg/dL Calcium 7.3 L (8.4-10.2) mg/dl Vancomycin Trough 10.7 (10-15) ug/ml Med Orders - Current: Current Medications Acetaminophen (Tylenol) 650 mg PO Q4H PRN PRN Reason: Pain (mild 1-3 )/fever Last Admin: 11/26/19 20:23 Dose: 650 mg Calcium Carbonate (Calcium Carbonate/Vitamin D 1250 Mg-200 Unit) 1 tab PO DAILY [facility] Last Admin: 11/27/19 09:09 Dose: 1 tab Docusate Sodium (Colace) 100 mg PO DAILY PRN PRN Reason: Constipation Enoxaparin Sodium (Lovenox) 40 mg SUBCUT DAILY [facility] Last Admin: 11/27/19 09:13 Dose: Not Given Furosemide (Lasix) 40 mg IVPUSH BIDDIURETIC [facility] Last Admin: 11/27/19 09:12 Dose: 40 mg Piperacillin Sod/Tazobactam (Sod 3.375 gm/ Sodium Chloride) 100 mls @ 200 mls/ hr IV Q6HR [facility] Last Admin: 11/27/19 06:05 Dose: 200 mls/hr Vancomycin HCl 1 gm/ Premix 200 mls @ 133.333 mls/hr IV Q8H [facility] Last Admin: 11/27/19 03:23 Dose: 133.3 mls/hr Metoprolol Tartrate (Lopressor) 50 mg PO DAILY [facility] Last Admin: 11/27/19 09:08 Dose: 50 mg Potassium Chloride (Klor-Con 10) 20 meq PO BIDMEALS [facility] Last Admin: 11/27/19 09:09 Dose: 20 meq Sodium Chloride (Saline Flush) 10 ml FLUSH ASDIRECTED PRN PRN Reason: Keep Vein Open Last Admin: 11/27/19 06:05 Dose: 10 ml Vancomycin HCl (Pharmacy To Dose - Vancomycin) 1 dose .XX ASDIRECTED [facility] Discontinued Medications Calcium Gluconate (Calcium Gluconate) 2 gm IVPUSH ONETIME ONE Stop: 11/23/19 12:00 Last Admin: 11/23/19 15:59 Dose: Not Given Furosemide (Lasix) 40 mg IVPUSH NOW ONE Stop: 11/23/19 10:42 Last Admin: 11/23/19 11:24 Dose: 40 mg Furosemide (Lasix) 20 mg PO DAILY [facility] Last Admin: 11/25/19 09:24 Dose: 20 mg Furosemide (Lasix) 40 mg IV BID@1100,1500 [facility] Stop: 11/25/19 15:01 Furosemide (Lasix) 40 mg IVPUSH BID@1100,1500 [facility] Stop: 11/25/19 15:01 Last Admin: 11/25/19 16:06 Dose: 40 mg Potassium Chloride/Dextrose/Sod Cl (D5 Ns With 20 Meq Kcl) 1,000 mls @ 150 mls/ hr IV ASDIRECTED [facility] Last Admin: 11/23/19 03:48 Dose: 150 mls/hr Calcium Gluconate 2 gm/ Sodium (Chloride) 120 mls @ 100 mls/hr IV ONETIME ONE Stop: 11/23/19 13:30 Last Admin: 11/23/19 15:59 Dose: Not Given Calcium Gluconate 2 gm/ Sodium (Chloride) 270 mls @ 225 mls/hr IV ONETIME ONE Stop: 11/23/19 16:11 Last Admin: 11/23/19 14:49 Dose: 225 mls/hr Calcium Gluconate 2 gm/ Sodium (Chloride) 120 mls @ 100 mls/hr IV ONETIME ONE Stop: 11/24/19 10:41 Last Admin: 11/24/19 12:38 Dose: Not Given Potassium Chloride (Klor-Con 10) 40 meq PO ONETIME ONE Stop: 11/22/19 14:12 Last Admin: 11/22/19 14:32 Dose: 40 meq Potassium Chloride (Klor-Con 10) 40 meq PO ONETIME ONE Stop: 11/23/19 11:46 Last Admin: 11/23/19 12:45 Dose: 40 meq Potassium Chloride (Klor-Con 10) 40 meq PO ONETIME ONE Stop: 11/27/19 08:22 Last Admin: 11/27/19 09:08 Dose: 40 meq Sodium Chloride (Saline Flush) 10 ml FLUSH ASDIRECTED PRN PRN Reason: Keep Vein Open Last Admin: 11/23/19 20:27 Dose: 10 ml - Exam Quality Assessment: Reports: DVT Prophylaxis. Denies: Supplemental Oxygen, Central Line/PICC, Urine Catheter General: Reports: Alert, Oriented, Cooperative, No Acute Distress HEENT: Reports: Pupils Equal, EOMI, Mucous Membr. Moist/[place] Neck: Reports: No JVD, No Thyromegaly. Denies: Lymphadenopathy Lungs: Reports: Clear to Auscultation, Normal Respiratory Effort Cardiovascular: Reports: Regular Rate, Regular Rhythm, No Murmurs GI/Abdominal Exam: Normal Bowel Sounds, Soft, Non-Tender, No Organomegaly. No: Guarding, Rigid, Rebound (Male) Exam: Deferred Rectal (Males) Exam: Deferred Back Exam: Reports: Normal Inspection, Full Range of Motion Extremities: Normal Inspection, Pedal Edema Skin: Reports: Warm, Dry, Intact Neurological: Reports: No New Focal Deficit Psy/Mental Status: Reports: Alert, Normal Affect, Normal Mood
[2019-11-27] MEDS ORDERED: Amoxicillin/Clavulanate K 875-125 MG Tab ONE (10:57)
[2019-11-27] MEDS ORDERED: Doxycycline 100 MG Cap ONE (11:02)
== END 2019-11-27 11:55 | disposition home or self-care (01) | DRG 603 ==
LOC: DL.ED 09:53 → DL.MS 12:56 → UNDOADMIN 12:57
PROVIDERS: ADMIT Internal Medicine Nephrology; ATTEND Internal Medicine Nephrology
DX: L03.115 Cellulitis of right lower limb (principal); E87.1 Hypo-osmolality and hyponatremia; E87.6 Hypokalemia; I80.3 Phlebitis and thrombophlebitis of lower extremities, unspecified; I10 Essential (primary) hypertension; E83.51 Hypocalcemia; B35.3 Tinea pedis; Z79.899 Other long term (current) drug therapy; Y90.4 Blood alcohol level of 80-99 mg/100 ml
CPT/HCPCS: 36415; 80048; 80053; 80202; 80305-QW; 81001; 85025; 85379; 85610; 93971; 99284-25; A9270-GY; G0480; J0610; J1650; J1940; J2543; J3370; J3480; J7050

== ENCOUNTER 2020-03-26 13:10 | Inpatient (IN) | payer MEDICAID, OTHER ==
[2020-03-26] MEDS ORDERED: Sodium Chloride 0.9% 1,000 ML IV ONE (13:45)
--- NOTE | 2020-03-26 13:48 | EDM.PDOC ---
ED HPI GENERAL MEDICAL PROBLEM - General Chief Complaint: General Stated Complaint: ELECTROLYTE IMBALANCE FEVER OF 101.9 Time Seen by Provider: 03/26/20 13:30 Source of Information: Reports: Patient History Limitations: Reports: No Limitations - History of Present Illness INITIAL COMMENTS - FREE TEXT/NARRATIVE: This 39 yo male patient reports to the ED due to being called by the [facility] and advised to go to the ED due to his electrolytes being off. The patient reports he was supposed to be seen last week in the clinic, but missed his appointment. The patient reports he has been taking his blood pressure medication as well as taking his water pill. The patient reports his providers have not been filling his potassium medication. The patient reports that he has not been feeling too well to to some dizziness when getting up. The patient reports he has been taking the water pill to control the swelling in his right lower extremity. The patient denies any pain to that area. Onset: Gradual Duration: Day(s):, Constant Location: Reports: Generalized Quality: Reports: Other Severity: Moderate Improves with: Reports: None Worsens with: Reports: None Context: Reports: Other Associated Symptoms: Reports: No Other Symptoms - Related Data Allergies Allergy/AdvReac Type Severity Reaction Status Date / Time aspirin Allergy Swelling Verified 03/26/20 13:20 Home Meds: Home Meds Metoprolol Tartrate [Lopressor] 50 mg PO DAILY 11/22/19 [History] Potassium Chloride 20 meq PO DAILY 11/22/19 [History] Furosemide [Lasix] 40 mg PO DAILY #20 tablet 11/27/19 [Rx] hydroCHLOROthiazide [Hydrochlorothiazide] 25 mg PO DAILY 03/26/20 [History] Past Medical History HEENT History: Reports: Other (See Below) Other HEENT History: left lazy eye Cardiovascular History: Reports: Hypertension Respiratory History: Reports: None Gastrointestinal History: Reports: None Genitourinary History: Reports: None Musculoskeletal History: Reports: None Neurological History: Reports: None Psychiatric History: Reports: None Endocrine/Metabolic History: Reports: None Hematologic History: Reports: None Immunologic History: Reports: None Oncologic (Cancer) History: Reports: None Dermatologic History: Reports: None - Infectious Disease History Infectious Disease History: Reports: None - Past Surgical History Head Surgeries/Procedures: Reports: None Social & Family History - Family History Family Medical History: Noncontributory - Tobacco Use Smoking Status *Q: Never Smoker Second Hand Smoke Exposure: No - Caffeine Use Caffeine Use: Reports: Coffee, Soda - Recreational Drug Use Recreational Drug Use: Yes Drug Use in Last 12 Months: Yes Recreational Drug Type: Reports: Marijuana/Hashish Recreational Drug Use Frequency: Weekly ED ROS GENERAL - Review of Systems Review Of Systems: Comprehensive ROS is negative, except as noted in HPI. ED EXAM, GENERAL - Physical Exam Exam: See Below Exam Limited By: No Limitations General Appearance: Alert, WD/WN, Mild Distress Eye Exam: Bilateral Eye: EOMI, Normal Inspection, PERRL Ears: Normal External Exam, Normal Canal, Hearing Grossly Normal, Normal TMs Nose: Normal Inspection, Normal Mucosa, No Blood Throat/Mouth: Normal Inspection, Normal Lips, Normal Teeth, Normal Gums, Normal Oropharynx, Normal Voice, No Airway Compromise Head: Atraumatic, Normocephalic Neck: Normal Inspection, Supple, Non-Tender, Full Range of Motion Respiratory/Chest: No Respiratory Distress, Lungs Clear, Normal Breath Sounds, No Accessory Muscle Use, Chest Non-Tender Cardiovascular: Normal Peripheral Pulses, Regular Rate, Rhythm, No Edema, No Gallop, No JVD, No Murmur, No Rub GI/Abdominal: Normal Bowel Sounds, Soft, Non-Tender, No Organomegaly, No Distention, No Abnormal Bruit, No Mass (Male) Exam: Deferred Rectal (Males) Exam: Deferred Extremities: Increased Warmth, Other (Right lower extremity is discolored with edema up to the knee. The patient has excoriations to the anterior right calf, but no current drainage. ) Neurological: Alert, Oriented, CN II-XII Intact, Normal Gait, Normal Reflexes, No Motor/Sensory Deficits, Slow to Respond Psychiatric: Normal Affect, Normal Mood Skin Exam: Increased Warmth, Other (Right lower extremity edema wiht discoloration to the knee. ) Lymphatic: No Adenopathy Course - Vital Signs Last Recorded V/S: Last Vital Signs Temp 37.9 C 03/26/20 13:17 Pulse 130 H 03/26/20 13:17 Resp 16 03/26/20 13:17 BP 129/68 03/26/20 13:17 Pulse Ox 98 03/26/20 13:17 - Orders/Labs/Meds Orders: Active Orders 24 hr Category Date Time Status Admission Diagnosis [ADT] Urgent ADT 03/26/20 15:24 Ordered Admission Status [Patient Status] [ADT] Routine ADT 03/26/20 15:24 Ordered CULTURE BLOOD [BC] Stat Lab 03/26/20 13:55 Received CULTURE BLOOD [BC] Stat Lab 03/26/20 14:00 Received DRUG SCREEN URINE BIORAD [URCHEM] Stat Lab 03/26/20 13:24 Ordered UA RFX DELROY AND CULT IF INDIC [URIN] Urgent Lab 03/26/20 13:24 Ordered Sodium Chloride 0.9% [Normal Saline] 1,000 ml Med 03/26/20 13:45 Active IV .BOLUS Vancomycin 1,500 mg Med 03/26/20 15:22 Ordered Sodium Chloride 0.9% [Normal Saline] 500 ml IV ONETIME Blood Culture x2 Reflex Set [OM.PC] Stat Oth 03/26/20 13:46 Ordered Medication Orders Sodium Chloride (Normal Saline) 1,000 mls @ 250 mls/hr IV .BOLUS ONE Stop: 03/26/20 17:44 Last Admin: 03/26/20 13:50 Dose: 250 mls/hr Vancomycin HCl 1,500 mg/ (Sodium Chloride) 500 mls @ 333.333 mls/hr IV ONETIME ONE Stop: 03/26/20 16:51 Labs: Laboratory Tests 03/26/20 03/26/20 03/26/20 Range/Units 13:32 13:32 13:32 WBC 23.9 H (5.0-10.0) 10^3/uL RBC 3.40 L (4.6-6.2) 10^6/uL Hgb 11.3 L D (14.0-18.0) g/dL Hct 32.0 L (40.0-54.0) % MCV 94.1 (80-100) fL MCH 33.2 (27.0-34.0) pg MCHC 35.3 H (33.0-35.0) g/dL Plt Count 127 L (150-450) 10^3/uL Neut % (Auto) 85.8 H (42.2-75.2) % Lymph % (Auto) 8.2 L (20.5-50.1) % Stone % (Auto) 5.5 (2-8) % Eos % (Auto) 0.3 L (1.0-3.0) % Baso % (Auto) 0.2 (0.0-1.0) % D-Dimer, Quantitative (0-400) ng/mL Sodium 131 L (136-145) mmol/L Potassium 2.6 L (3.5-5.1) mmol/L Chloride 96 L (98-107) mmol/L Carbon Dioxide 24 (21-32) mmol/L Anion Gap 13.6 H (7-13) mEq/L BUN 16 (7-18) mg/dL Creatinine 1.45 H (0.70-1.30) mg/dL Est Cr Clr Drug Dosing 64.86 mL/min Estimated GFR (MDRD) 54 BUN/Creatinine Ratio 11.0 (No establ ref range) Glucose 138 H (74-99) mg/dL Lactic Acid (0.4-2.0) mmol/L Calcium 8.1 L (8.5-10.1) mg/dL Total Bilirubin 4.1 H (0.2-1.0) mg/dL AST 71 H (15-37) U/L ALT 34 (16-63) U/L Alkaline Phosphatase 133 H (46-116) U/L Ammonia 45 H (11-32) umol/L B-Natriuretic Peptide (0-100) pg/ml Total Protein 8.9 H (6.4-8.2) g/dL Albumin 2.0 L (3.4-5.0) g/dL Globulin 6.9 Albumin/Globulin Ratio 0.29 Ethyl Alcohol < 3 (0) mg/dL SARS-CoV-2 RNA (RT-PCR) (NEGATIVE) 03/26/20 03/26/20 03/26/20 Range/Units 13:32 13:32 13:55 WBC (5.0-10.0) 10^3/uL RBC (4.6-6.2) 10^6/uL Hgb (14.0-18.0) g/dL Hct (40.0-54.0) % MCV (80-100) fL MCH (27.0-34.0) pg MCHC (33.0-35.0) g/dL Plt Count (150-450) 10^3/uL Neut % (Auto) (42.2-75.2) % Lymph % (Auto) (20.5-50.1) % Stone % (Auto) (2-8) % Eos % (Auto) (1.0-3.0) % Baso % (Auto) (0.0-1.0) % D-Dimer, Quantitative 1430 H (0-400) ng/mL Sodium (136-145) mmol/L Potassium (3.5-5.1) mmol/L Chloride (98-107) mmol/L Carbon Dioxide (21-32) mmol/L Anion Gap (7-13) mEq/L BUN (7-18) mg/dL Creatinine (0.70-1.30) mg/dL Est Cr Clr Drug Dosing mL/min Estimated GFR (MDRD) BUN/Creatinine Ratio (No establ ref range) Glucose (74-99) mg/dL Lactic Acid 2.4 H* (0.4-2.0) mmol/L Calcium (8.5-10.1) mg/dL Total Bilirubin (0.2-1.0) mg/dL AST (15-37) U/L ALT (16-63) U/L Alkaline Phosphatase (46-116) U/L Ammonia (11-32) umol/L B-Natriuretic Peptide 147 H (0-100) pg/ml Total Protein (6.4-8.2) g/dL Albumin (3.4-5.0) g/dL Globulin Albumin/Globulin Ratio Ethyl Alcohol (0) mg/dL SARS-CoV-2 RNA (RT-PCR) (NEGATIVE) 03/26/20 Range/Units 13:58 WBC (5.0-10.0) 10^3/uL RBC (4.6-6.2) 10^6/uL Hgb (14.0-18.0) g/dL Hct (40.0-54.0) % MCV (80-100) fL MCH (27.0-34.0) pg MCHC (33.0-35.0) g/dL Plt Count (150-450) 10^3/uL Neut % (Auto) (42.2-75.2) % Lymph % (Auto) (20.5-50.1) % Stone % (Auto) (2-8) % Eos % (Auto) (1.0-3.0) % Baso % (Auto) (0.0-1.0) % D-Dimer, Quantitative (0-400) ng/mL Sodium (136-145) mmol/L Potassium (3.5-5.1) mmol/L Chloride (98-107) mmol/L Carbon Dioxide (21-32) mmol/L Anion Gap (7-13) mEq/L BUN (7-18) mg/dL Creatinine (0.70-1.30) mg/dL Est Cr Clr Drug Dosing mL/min Estimated GFR (MDRD) BUN/Creatinine Ratio (No establ ref range) Glucose (74-99) mg/dL Lactic Acid (0.4-2.0) mmol/L Calcium (8.5-10.1) mg/dL Total Bilirubin (0.2-1.0) mg/dL AST (15-37) U/L ALT (16-63) U/L Alkaline Phosphatase (46-116) U/L Ammonia (11-32) umol/L B-Natriuretic Peptide (0-100) pg/ml Total Protein (6.4-8.2) g/dL Albumin (3.4-5.0) g/dL Globulin Albumin/Globulin Ratio Ethyl Alcohol (0) mg/dL SARS-CoV-2 RNA (RT-PCR) Negative (NEGATIVE) Meds: Medications Generic Name Dose Route Start Last Admin Trade Name Freq PRN Reason Stop Dose Admin Sodium Chloride 1,000 mls @ 250 mls/hr 03/26/20 13:45 03/26/20 13:50 Normal Saline IV 03/26/20 17:44 250 mls/hr .BOLUS ONE Administration Vancomycin HCl 1,500 mg/ 500 mls @ 333.333 mls/hr 03/26/20 15:22 Sodium Chloride IV 03/26/20 16:51 ONETIME ONE Departure - Departure Time of Disposition: 15:27 Disposition: Admitted As Inpatient 64 Condition: Fair Clinical Impression: Hypokalemia, Hyponatremia Cellulitis Qualifiers: Site of cellulitis: extremity Site of cellulitis of extremity: lower extremity Laterality: right Qualified Code(s): L03.115 - Cellulitis of right lower limb - Discharge Information Care Plan Goals: Discussed the patient's examination, lab and ultrasound results with Dr. Peters. Dr. Peters accepted the patient for continued evaluation and management as an inpatient at [facility]. Sepsis Event Note - Evaluation Sepsis Screening Result: No Definite Risk - Focused Exam Vital Signs: Vital Signs Temp Pulse Resp BP Pulse Ox 03/26/20 13:17 37.9 C 130 H 16 129/68 98 Date Exam was Performed: 03/26/20 Time Exam was Performed: 15:27 - My Orders Last 24 Hours: My Active Orders 03/26/20 13:24 DRUG SCREEN URINE BIORAD [URCHEM] Stat UA RFX DELROY AND CULT IF INDIC [URIN] Urgent 03/26/20 13:45 Sodium Chloride 0.9% [Normal Saline] 1,000 ml IV .BOLUS 03/26/20 13:46 Blood Culture x2 Reflex Set [OM.PC] Stat 03/26/20 13:55 CULTURE BLOOD [BC] Stat 03/26/20 14:00 CULTURE BLOOD [BC] Stat 03/26/20 15:22 Vancomycin 1,500 mg Sodium Chloride 0.9% [Normal Saline] 500 ml IV ONETIME 03/26/20 15:24 Admission Diagnosis [ADT] Urgent Admission Status [Patient Status] [ADT] Routine - Assessment/Plan Last 24 Hours: My Active Orders 03/26/20 13:24 DRUG SCREEN URINE BIORAD [URCHEM] Stat UA RFX DELROY AND CULT IF INDIC [URIN] Urgent 03/26/20 13:45 Sodium Chloride 0.9% [Normal Saline] 1,000 ml IV .BOLUS 03/26/20 13:46 Blood Culture x2 Reflex Set [OM.PC] Stat 03/26/20 13:55 CULTURE BLOOD [BC] Stat 03/26/20 14:00 CULTURE BLOOD [BC] Stat 03/26/20 15:22 Vancomycin 1,500 mg Sodium Chloride 0.9% [Normal Saline] 500 ml IV ONETIME 03/26/20 15:24 Admission Diagnosis [ADT] Urgent Admission Status [Patient Status] [ADT] Routine
[2020-03-26 14:17] LABS: ANION GAP 13.6 mEq/L (7-13); CHLORIDE,CL 96 mmol/L (98-107); SODIUM,NA 131 mmol/L (136-145)
--- NOTE | 2020-03-26 15:21 | US ---
EXAMINATION: Venous Doppler Lwr Ext Rt SEX: Male AGE: 39 years CLINICAL HISTORY: 39-year-old male with right lower extremity, elevated serum D-dimer (1430), and WBC 23,900. INTERPRETATION: 1. Multiple lymph nodes right groin (largest 5 cm diameter). Cellulitis? 2. No sign of intraluminal echogenic thrombus and normal compressibility deep veins of the right groin, thigh, knee and calf. Satisfactory augmentation and venous waveform demonstrated respectively in the right peroneal/posterior tibial veins of the calf, popliteal vein of the knee, and proximal in the femoral veins (greater saphenous vein patent). 3. No sign of popliteal (Linder's) cyst or subcutaneous abscess. CONCLUSION: Lymphadenopathy. No DVT right lower extremity.
[2020-03-26] MEDS ORDERED: Potassium Chloride 10 MEQ Tab.ER PO ONE (17:56)
[2020-03-26] MEDS ORDERED: Sodium Chloride 0.9% 10 ML Syringe FLUSH PRN (17:57)
[2020-03-26] MEDS ORDERED: ceFAZolin 1 GM in Premix Bag 1 BAG IV SCH (18:00)
[2020-03-26] MEDS: Acetaminophen 325 MG Tab PO PRN (18:35)
--- NOTE | 2020-03-26 18:54 | PCM.HP ---
H&P History of Present Illness - General Date of Service: 03/26/20 Admit Problem/Dx: Admission Diagnosis/Problem Admission Diagnosis/Problem Cellulitis Source of Information: Patient History Limitations: Reports: No Limitations - History of Present Illness Initial Comments - Free Text/Narative: 39 yo M with PMH of HTN, alcohol abuse who presents with fever, right leg swelling and hyperpigmentation of unknown duration. Patient had labs done prior to PCP visit scheduled for tomorrow. Lab work was abnormal with low potassium and elevated WBC and he was asked to go to the ED. In the ED, he was found to be febrile. He also had right leg swelling and hyperpigementation. He can't remember when this started and he has no problem ambulating. He has no pain in the right leg. He wasn't aware he was febrile and he had no other complaints. No chest pain, no cough, no SOB, no painful urination. No hx of IV drug use. Doesn't smoke, drank alcohol in the past. Pulses were intact in both lower ext. DVT study was done on right lower ext and no DVT seen. He was started on abx and admitted to the medical floor. ROS: no abdominal pain, no headaches, no joint pain, no new rash, has chronic extuberations of both feet and sees appeals assistant headache Pain Score (Numeric/FACES): 4 - Related Data Allergies/Adverse Reactions: Allergies Allergy/AdvReac Type Severity Reaction Status Date / Time aspirin Allergy Swelling Verified 03/26/20 16:04 Home Medications: Home Meds Potassium Chloride 20 meq PO DAILY 11/22/19 [History] Metoprolol Succinate [Toprol XL] 25 mg PO DAILY 03/26/20 [History] hydroCHLOROthiazide [Hydrochlorothiazide] 25 mg PO DAILY 03/26/20 [History] Past Medical History HEENT History: Reports: Other (See Below) Other HEENT History: left lazy eye Cardiovascular History: Reports: Hypertension Respiratory History: Reports: None Gastrointestinal History: Reports: GERD Genitourinary History: Reports: None Musculoskeletal History: Reports: None Neurological History: Reports: None Psychiatric History: Reports: None Endocrine/Metabolic History: Reports: None Hematologic History: Reports: None Immunologic History: Reports: None Oncologic (Cancer) History: Reports: None Dermatologic History: Reports: Cellulitis, Other (See Below) Other Dermatologic History: fungus on feet and fingernails. - Infectious Disease History Infectious Disease History: Reports: None - Past Surgical History Head Surgeries/Procedures: Reports: None Social & Family History - Family History Family Medical History: Noncontributory - Tobacco Use Smoking Status *Q: Never Smoker Second Hand Smoke Exposure: No - Caffeine Use Caffeine Use: Reports: Coffee, Soda - Recreational Drug Use Recreational Drug Use: No Drug Use in Last 12 Months: Yes Recreational Drug Type: Reports: Marijuana/Hashish Recreational Drug Use Frequency: Weekly H&P Review of Systems - Review of Systems: Review Of Systems: Comprehensive ROS is negative, except as noted in HPI. Exam - Exam Exam: See Below - Vital Signs Vital Signs: Last Vital Signs Temp 39.0 C H 03/26/20 15:55 Pulse 124 H 03/26/20 15:55 Resp 20 03/26/20 15:55 BP 141/73 H 03/26/20 15:55 Pulse Ox 99 03/26/20 17:58 Weight: 82.735 kg - Exam General: Alert, Oriented HEENT: Hearing Intact, Scleral Icterus Neck: Supple, Trachea Midline Lungs: Clear to Auscultation, Normal Respiratory Effort Cardiovascular: Regular Rate, Regular Rhythm, Normal S1, Normal S2 GI/Abdominal Exam: Normal Bowel Sounds, Soft, Non-Tender, No Organomegaly Extremities: Pedal Edema, Increased Warmth, Redness, Other (bilateral foot has crusty extuberances, likely chronic fungal infection) Peripheral Pulses: 3+: Posterior Tibial (L), Posterior Tibial (R), Dorsalis Pedis (L), Dorsalis Pedis (R) - Patient Data Lab Results Last 24 hrs: Laboratory Results - last 24 hr 03/26/20 03/26/20 03/26/20 Range/Units 13:32 13:32 13:32 WBC 23.9 H (5.0-10.0) 10^3/uL RBC 3.40 L (4.6-6.2) 10^6/uL Hgb 11.3 L D (14.0-18.0) g/dL Hct 32.0 L (40.0-54.0) % MCV 94.1 (80-100) fL MCH 33.2 (27.0-34.0) pg MCHC 35.3 H (33.0-35.0) g/dL Plt Count 127 L (150-450) 10^3/uL Neut % (Auto) 85.8 H (42.2-75.2) % Lymph % (Auto) 8.2 L (20.5-50.1) % Schuyler % (Auto) 5.5 (2-8) % Eos % (Auto) 0.3 L (1.0-3.0) % Baso % (Auto) 0.2 (0.0-1.0) % D-Dimer, Quantitative (0-400) ng/mL Sodium 131 L (136-145) mmol/L Potassium 2.6 L (3.5-5.1) mmol/L Chloride 96 L (98-107) mmol/L Carbon Dioxide 24 (21-32) mmol/L Anion Gap 13.6 H (7-13) mEq/L BUN 16 (7-18) mg/dL Creatinine 1.45 H (0.70-1.30) mg/dL Est Cr Clr Drug Dosing 64.86 mL/min Estimated GFR (MDRD) 54 BUN/Creatinine Ratio 11.0 (No establ ref range) Glucose 138 H (74-99) mg/dL Lactic Acid (0.4-2.0) mmol/L Calcium 8.1 L (8.5-10.1) mg/dL Total Bilirubin 4.1 H (0.2-1.0) mg/dL AST 71 H (15-37) U/L ALT 34 (16-63) U/L Alkaline Phosphatase 133 H (46-116) U/L Ammonia 45 H (11-32) umol/L B-Natriuretic Peptide (0-100) pg/ml Total Protein 8.9 H (6.4-8.2) g/dL Albumin 2.0 L (3.4-5.0) g/dL Globulin 6.9 Albumin/Globulin Ratio 0.29 Urine Color (YELLOW) Urine Appearance (CLEAR) Urine pH (5.0-9.0) Ur Specific [place] (1.005-1.030) Urine Protein (NEGATIVE) Urine Glucose (UA) (NEGATIVE) Urine Ketones (NEGATIVE) Urine Occult Blood (NEGATIVE) Urine Nitrite (NEGATIVE) Urine Bilirubin (NEGATIVE) Urine Urobilinogen (0.2-1.0) mg/dL Ur Leukocyte Esterase (NEGATIVE) Urine RBC /HPF Urine WBC (0-5/HPF) /HPF Ur Epithelial Cells (NOT SEEN) /HPF Amorphous Sediment (NOT SEEN) /HPF Urine Bacteria (0-FEW/HPF) /HPF Urine Mucus (NOT SEEN) /LPF Urine Opiates Screen (NEGATIVE) Ur Oxycodone Screen (NEGATIVE) Urine Methadone Screen (NEGATIVE) Ur Barbiturates Screen (NEGATIVE) U Tricyclic Antidepress (NEGATIVE) Ur Phencyclidine Scrn (NEGATIVE) Ur Amphetamine Screen (NEGATIVE) U Methamphetamines Scrn (NEGATIVE) Urine MDMA Screen (NEGATIVE) U Benzodiazepines Scrn (NEGATIVE) Urine Cocaine Screen (NEGATIVE) U Marijuana (THC) Screen (NEGATIVE) Ethyl Alcohol < 3 (0) mg/dL SARS-CoV-2 RNA (RT-PCR) (NEGATIVE) 03/26/20 03/26/20 03/26/20 Range/Units 13:32 13:32 13:55 WBC (5.0-10.0) 10^3/uL RBC (4.6-6.2) 10^6/uL Hgb (14.0-18.0) g/dL Hct (40.0-54.0) % MCV (80-100) fL MCH (27.0-34.0) pg MCHC (33.0-35.0) g/dL Plt Count (150-450) 10^3/uL Neut % (Auto) (42.2-75.2) % Lymph % (Auto) (20.5-50.1) % Schuyler % (Auto) (2-8) % Eos % (Auto) (1.0-3.0) % Baso % (Auto) (0.0-1.0) % D-Dimer, Quantitative 1430 H (0-400) ng/mL Sodium (136-145) mmol/L Potassium (3.5-5.1) mmol/L Chloride (98-107) mmol/L Carbon Dioxide (21-32) mmol/L Anion Gap (7-13) mEq/L BUN (7-18) mg/dL Creatinine (0.70-1.30) mg/dL Est Cr Clr Drug Dosing mL/min Estimated GFR (MDRD) BUN/Creatinine Ratio (No establ ref range) Glucose (74-99) mg/dL Lactic Acid 2.4 H* (0.4-2.0) mmol/L Calcium (8.5-10.1) mg/dL Total Bilirubin (0.2-1.0) mg/dL AST (15-37) U/L ALT (16-63) U/L Alkaline Phosphatase (46-116) U/L Ammonia (11-32) umol/L B-Natriuretic Peptide 147 H (0-100) pg/ml Total Protein (6.4-8.2) g/dL Albumin (3.4-5.0) g/dL Globulin Albumin/Globulin Ratio Urine Color (YELLOW) Urine Appearance (CLEAR) Urine pH (5.0-9.0) Ur Specific [place] (1.005-1.030) Urine Protein (NEGATIVE) Urine Glucose (UA) (NEGATIVE) Urine Ketones (NEGATIVE) Urine Occult Blood (NEGATIVE) Urine Nitrite (NEGATIVE) Urine Bilirubin (NEGATIVE) Urine Urobilinogen (0.2-1.0) mg/dL Ur Leukocyte Esterase (NEGATIVE) Urine RBC /HPF Urine WBC (0-5/HPF) /HPF Ur Epithelial Cells (NOT SEEN) /HPF Amorphous Sediment (NOT SEEN) /HPF Urine Bacteria (0-FEW/HPF) /HPF Urine Mucus (NOT SEEN) /LPF Urine Opiates Screen (NEGATIVE) Ur Oxycodone Screen (NEGATIVE) Urine Methadone Screen (NEGATIVE) Ur Barbiturates Screen (NEGATIVE) U Tricyclic Antidepress (NEGATIVE) Ur Phencyclidine Scrn (NEGATIVE) Ur Amphetamine Screen (NEGATIVE) U Methamphetamines Scrn (NEGATIVE) Urine MDMA Screen (NEGATIVE) U Benzodiazepines Scrn (NEGATIVE) Urine Cocaine Screen (NEGATIVE) U Marijuana (THC) Screen (NEGATIVE) Ethyl Alcohol (0) mg/dL SARS-CoV-2 RNA (RT-PCR) (NEGATIVE) 03/26/20 03/26/20 03/26/20 Range/Units 13:58 15:02 15:02 WBC (5.0-10.0) 10^3/uL RBC (4.6-6.2) 10^6/uL Hgb (14.0-18.0) g/dL Hct (40.0-54.0) % MCV (80-100) fL MCH (27.0-34.0) pg MCHC (33.0-35.0) g/dL Plt Count (150-450) 10^3/uL Neut % (Auto) (42.2-75.2) % Lymph % (Auto) (20.5-50.1) % [place]uyler % (Auto) (2-8) % Eos % (Auto) (1.0-3.0) % Baso % (Auto) (0.0-1.0) % D-Dimer, Quantitative (0-400) ng/mL Sodium (136-145) mmol/L Potassium (3.5-5.1) mmol/L Chloride (98-107) mmol/L Carbon Dioxide (21-32) mmol/L Anion Gap (7-13) mEq/L BUN (7-18) mg/dL Creatinine (0.70-1.30) mg/dL Est Cr Clr Drug Dosing mL/min Estimated GFR (MDRD) BUN/Creatinine Ratio (No establ ref range) Glucose (74-99) mg/dL Lactic Acid (0.4-2.0) mmol/L Calcium (8.5-10.1) mg/dL Total Bilirubin (0.2-1.0) mg/dL AST (15-37) U/L ALT (16-63) U/L Alkaline Phosphatase (46-116) U/L Ammonia (11-32) umol/L B-Natriuretic Peptide (0-100) pg/ml Total Protein (6.4-8.2) g/dL Albumin (3.4-5.0) g/dL Globulin Albumin/Globulin Ratio Urine Color Yellow (YELLOW) Urine Appearance Slightly cloudy (CLEAR) Urine pH 8.0 (5.0-9.0) Ur Specific [place] 1.020 (1.005-1.030) Urine Protein 100 H (NEGATIVE) Urine Glucose (UA) Negative (NEGATIVE) Urine Ketones Negative (NEGATIVE) Urine Occult Blood Large H (NEGATIVE) Urine Nitrite Negative (NEGATIVE) Urine Bilirubin Negative (NEGATIVE) Urine Urobilinogen 0.2 (0.2-1.0) mg/dL Ur Leukocyte Esterase Negative (NEGATIVE) Urine RBC >100 H /HPF Urine WBC 0-5 (0-5/HPF) /HPF Ur Epithelial Cells Rare (NOT SEEN) /HPF Amorphous Sediment Rare (NOT SEEN) /HPF Urine Bacteria Rare (0-FEW/HPF) /HPF Urine Mucus Not seen (NOT SEEN) /LPF Urine Opiates Screen Negative (NEGATIVE) Ur Oxycodone Screen Negative (NEGATIVE) Urine Methadone Screen Negative (NEGATIVE) Ur Barbiturates Screen Negative (NEGATIVE) U Tricyclic Antidepress Negative (NEGATIVE) Ur Phencyclidine Scrn Negative (NEGATIVE) Ur Amphetamine Screen Negative (NEGATIVE) U Methamphetamines Scrn Negative (NEGATIVE) Urine MDMA Screen Negative (NEGATIVE) U Benzodiazepines Scrn Negative (NEGATIVE) Urine Cocaine Screen Negative (NEGATIVE) U Marijuana (THC) Screen Negative (NEGATIVE) Ethyl Alcohol (0) mg/dL SARS-CoV-2 RNA (RT-PCR) Negative (NEGATIVE) Result Diagrams: 03/26/20 13:32 03/26/20 13:32 Problem List Initiated/Reviewed/Updated: Yes Orders Last 24hrs: Active Orders 24 hr Category Date Time Status Admission Diagnosis [ADT] Urgent ADT 03/26/20 15:24 Ordered Admission Status [Patient Status] [ADT] Routine ADT 03/26/20 18:00 Ordered Ambulate [RC] ASDIRECTED Care 03/26/20 17:58 Ordered Height and Weight [RC] DAILY Care 03/26/20 17:58 Ordered Oxygen Therapy [RC] PRN Care 03/26/20 17:58 Ordered Peripheral IV Care [RC] . DIRECTED Care 03/26/20 17:58 Ordered Telemetry Monitoring [Cardiac Monitoring] [RC] . Care 03/26/20 17:19 Active DIRECTED Up With Assistance [RC] ASDIRECTED Care 03/26/20 17:58 Ordered VTE/DVT Education [RC] PER UNIT ROUTINE Care 03/26/20 17:58 Ordered Vital Signs [RC] Q4H Care 03/26/20 17:58 Ordered Regular Diet [DIET] Diet 03/26/20 Breakfast Ordered BASIC METABOLIC PANEL,BMP [CHEM] AM Lab 03/27/20 05:11 Ordered BASIC METABOLIC PANEL,BMP [CHEM] AM Lab 03/28/20 05:11 Ordered BASIC METABOLIC PANEL,BMP [CHEM] AM Lab 03/29/20 05:11 Ordered CBC W/O DIFF,HEMOGRAM [HEME] AM Lab 03/27/20 05:11 Ordered CBC W/O DIFF,HEMOGRAM [HEME] AM Lab 03/28/20 05:11 Ordered CBC W/O DIFF,HEMOGRAM [HEME] AM Lab 03/29/20 05:11 Ordered CULTURE BLOOD [BC] Stat Lab 03/26/20 13:55 Received CULTURE BLOOD [BC] Stat Lab 03/26/20 14:00 Received HEPATIC FUNCTION PANEL,HFP [CHEM] AM Lab 03/27/20 05:11 Ordered HEPATIC FUNCTION PANEL,HFP [CHEM] AM Lab 03/28/20 05:11 Ordered HEPATIC FUNCTION PANEL,HFP [CHEM] AM Lab 03/29/20 05:11 Ordered LACTIC ACID [CHEM] Routine Lab 03/26/20 18:40 Ordered MAGNESIUM [CHEM] AM Lab 03/27/20 05:11 Ordered MAGNESIUM [CHEM] AM Lab 03/28/20 05:11 Ordered MAGNESIUM [CHEM] AM Lab 03/29/20 05:11 Ordered PHOSPHORUS [CHEM] AM Lab 03/27/20 05:11 Ordered PHOSPHORUS [CHEM] AM Lab 03/28/20 05:11 Ordered PHOSPHORUS [CHEM] AM Lab 03/29/20 05:11 Ordered POTASSIUM,K [CHEM] Timed Lab 03/26/20 23:59 Ordered Acetaminophen [Tylenol] Med 03/26/20 17:18 Active 650 mg PO Q6H PRN Heparin Sodium Med 03/26/20 22:00 Ordered 5,000 units SUBCUT Q8HR Metoprolol Succinate [Toprol XL] Med 03/27/20 09:00 Ordered 25 mg PO DAILY Potassium Chloride [KCl 10 MEQ in Water 100 ML] 10 meq Med 03/26/20 18:00 Ordered Premix Bag 1 bag IV Q1H Sodium Chloride 0.9% [Normal Saline] 1,000 ml Med 03/26/20 17:30 Active IV ASDIRECTED Sodium Chloride 0.9% [Saline Flush] Med 03/26/20 17:57 Ordered 10 ml FLUSH ASDIRECTED PRN Sodium Chloride 0.9% [Saline Flush] Med 03/26/20 17:57 Ordered 10 ml FLUSH ASDIRECTED PRN ceFAZolin [Ancef] 1 gm Med 03/26/20 22:00 Ordered Premix Bag 1 bag IV Q8HR hydroCHLOROthiazide Med 03/27/20 09:00 Ordered 25 mg PO DAILY Blood Culture x2 Reflex Set [OM.PC] Stat Oth 03/26/20 13:46 Ordered Peripheral IV Insertion Adult [OM.PC] Routine Oth 03/26/20 17:58 Ordered Saline Lock Insert [OM.PC] Routine Oth 03/26/20 17:58 Ordered Resuscitation Status Routine Resus Stat 03/26/20 17:57 Ordered Medication Orders Acetaminophen (Tylenol) 650 mg PO Q6H PRN PRN Reason: Pain/Fever Last Admin: 03/26/20 18:35 Dose: 650 mg Heparin Sodium (Porcine) (Heparin Sodium) 5,000 units SUBCUT Q8HR [facility] Hydrochlorothiazide (Hydrochlorothiazide) 25 mg PO DAILY [facility] Sodium Chloride (Normal Saline) 1,000 mls @ 100 mls/hr IV ASDIRECTED [facility] Cefazolin Sodium/Dextrose 1 gm (/ Premix) 50 mls @ 100 mls/hr IV Q8H [facility] Last Admin: 03/26/20 18:36 Dose: 100 mls/hr Potassium Chloride 10 meq/ (Premix) 100 mls @ 100 mls/hr IV Q1H [facility] Stop: 03/26/20 21:59 Metoprolol Succinate (Toprol Xl) 25 mg PO DAILY [facility] Sodium Chloride (Saline Flush) 10 ml FLUSH ASDIRECTED PRN PRN Reason: Keep Vein Open Sodium Chloride (Saline Flush) 10 ml FLUSH ASDIRECTED PRN PRN Reason: Keep Vein Open Assessment/Plan Comment:: Right lower ext cellulitis Sepsis: fever, leucocytosis -COVID test negative -IV cefazolin 1 g Q8hrs -f/u blood cx -repeat lactic acid -IV fluid hydration Hypokalemia -replenish potassium IV and orally -recheck K+ levels Chronic liver disease Icterus -elevated bilirubin, jaundice, low albumin, mild thrombocytopenia -likely has CLD/cirrhosis -check RUQ US as O/P -f/u in GI clinic as O/P Bilateral fungal infection of feet -follow up with podiatry O/P CKD -monitor Cr daily -avoid nephrotoxic agents -O/P f/u with the nephrology clinic HTN -continue home meds DVT ppx SC heparin, monitor platelets, hold for plt less than 50 Code status. FC
[2020-03-26] MEDS: Potassium Chloride 10 MEQ in Premix Bag 1 BAG IV SCH ×4 (19:16→22:37)
[2020-03-26] MEDS: Sodium Chloride 0.9% 1,000 ML IV SCH (19:20)
[2020-03-26] MEDS: Heparin Sodium 5,000 Units/ML Vial SUBCUT SCH (22:42)
[2020-03-27] MEDS ORDERED: Potassium Chloride 10 MEQ Tab.ER PO ONE (00:23)
[2020-03-27] MEDS: Acetaminophen 325 MG Tab PO PRN ×3 (00:31→20:46)
[2020-03-27] MEDS: Heparin Sodium 5,000 Units/ML Vial SUBCUT SCH ×3 (05:35→22:51)
[2020-03-27] MEDS: Sodium Chloride 0.9% 1,000 ML IV SCH (05:55)
[2020-03-27] MEDS: ceFAZolin 1 GM in Premix Bag 1 BAG IV SCH ×3 (05:55→22:51)
[2020-03-27] MEDS: Metoprolol Succinate 25 MG Tab.ER PO SCH (08:52)
[2020-03-27] MEDS: Hydrochlorothiazide 25 MG Tab PO SCH (08:52)
[2020-03-27] MEDS: Sodium Chloride 0.9% 10 ML Syringe FLUSH PRN ×2 (08:55→14:39)
--- NOTE | 2020-03-27 10:39 | PCM.PN ---
- General Info Date of Service: 03/27/20 Admission Dx/Problem (Free Text): Admission Diagnosis/Problem Admission Diagnosis/Problem Cellulitis Subjective Update: I saw and examined the patient No new complaints Afebrile this morning No chest pain, SOB, abdominal pain - Review of Systems General: Denies: Fever HEENT: Reports: No Symptoms Pulmonary: Reports: No Symptoms Cardiovascular: Reports: No Symptoms Gastrointestinal: Reports: No Symptoms Genitourinary: Reports: No Symptoms Musculoskeletal: Reports: Other (right leg hyperpigementation/swelling) Skin: Reports: No Symptoms Neurological: Reports: No Symptoms Psychiatric: Reports: No Symptoms - Patient Data Vitals - Most Recent: Last Vital Signs Temp 37.1 C 03/27/20 08:51 Pulse 90 03/27/20 08:52 Resp 20 03/27/20 08:51 BP 112/64 03/27/20 08:52 Pulse Ox 100 03/27/20 08:51 Weight - Most Recent: 85.82 kg Lab Results Last 24 Hours: Laboratory Results - last 24 hr 03/26/20 03/26/20 03/26/20 Range/Units 13:32 13:32 13:32 WBC 23.9 H (5.0-10.0) 10^3/uL RBC 3.40 L (4.6-6.2) 10^6/uL Hgb 11.3 L D (14.0-18.0) g/dL Hct 32.0 L (40.0-54.0) % MCV 94.1 (80-100) fL MCH 33.2 (27.0-34.0) pg MCHC 35.3 H (33.0-35.0) g/dL Plt Count 127 L (150-450) 10^3/uL Neut % (Auto) 85.8 H (42.2-75.2) % Lymph % (Auto) 8.2 L (20.5-50.1) % Johnson % (Auto) 5.5 (2-8) % Eos % (Auto) 0.3 L (1.0-3.0) % Baso % (Auto) 0.2 (0.0-1.0) % D-Dimer, Quantitative (0-400) ng/mL Sodium 131 L (136-145) mmol/L Potassium 2.6 L (3.5-5.1) mmol/L Chloride 96 L (98-107) mmol/L Carbon Dioxide 24 (21-32) mmol/L Anion Gap 13.6 H (7-13) mEq/L BUN 16 (7-18) mg/dL Creatinine 1.45 H (0.70-1.30) mg/dL Est Cr Clr Drug Dosing 64.86 mL/min Estimated GFR (MDRD) 54 BUN/Creatinine Ratio 11.0 (No establ ref range) Glucose 138 H (74-99) mg/dL Lactic Acid (0.4-2.0) mmol/L Calcium 8.1 L (8.5-10.1) mg/dL Phosphorus (2.6-4.7) mg/dL Magnesium (1.8-2.4) mg/dL Total Bilirubin 4.1 H (0.2-1.0) mg/dL Direct Bilirubin (0.0-0.2) mg/dL Indirect Bilirubin AST 71 H (15-37) U/L ALT 34 (16-63) U/L Alkaline Phosphatase 133 H (46-116) U/L Ammonia 45 H (11-32) umol/L B-Natriuretic Peptide (0-100) pg/ml Total Protein 8.9 H (6.4-8.2) g/dL Albumin 2.0 L (3.4-5.0) g/dL Globulin 6.9 Albumin/Globulin Ratio 0.29 Urine Color (YELLOW) Urine Appearance (CLEAR) Urine pH (5.0-9.0) Ur Specific Sterling (1.005-1.030) Urine Protein (NEGATIVE) Urine Glucose (UA) (NEGATIVE) Urine Ketones (NEGATIVE) Urine Occult Blood (NEGATIVE) Urine Nitrite (NEGATIVE) Urine Bilirubin (NEGATIVE) Urine Urobilinogen (0.2-1.0) mg/dL Ur Leukocyte Esterase (NEGATIVE) Urine RBC /HPF Urine WBC (0-5/HPF) /HPF Ur Epithelial Cells (NOT SEEN) /HPF Amorphous Sediment (NOT SEEN) /HPF Urine Bacteria (0-FEW/HPF) /HPF Urine Mucus (NOT SEEN) /LPF Urine Opiates Screen (NEGATIVE) Ur Oxycodone Screen (NEGATIVE) Urine Methadone Screen (NEGATIVE) Ur Barbiturates Screen (NEGATIVE) U Tricyclic Antidepress (NEGATIVE) Ur Phencyclidine Scrn (NEGATIVE) Ur Amphetamine Screen (NEGATIVE) U Methamphetamines Scrn (NEGATIVE) Urine MDMA Screen (NEGATIVE) U Benzodiazepines Scrn (NEGATIVE) Urine Cocaine Screen (NEGATIVE) U Marijuana (THC) Screen (NEGATIVE) Ethyl Alcohol < 3 (0) mg/dL SARS-CoV-2 RNA (RT-PCR) (NEGATIVE) 03/26/20 03/26/20 03/26/20 Range/Units 13:32 13:32 13:55 WBC (5.0-10.0) 10^3/uL RBC (4.6-6.2) 10^6/uL Hgb (14.0-18.0) g/dL Hct (40.0-54.0) % MCV (80-100) fL MCH (27.0-34.0) pg MCHC (33.0-35.0) g/dL Plt Count (150-450) 10^3/uL Neut % (Auto) (42.2-75.2) % Lymph % (Auto) (20.5-50.1) % Johnson % (Auto) (2-8) % Eos % (Auto) (1.0-3.0) % Baso % (Auto) (0.0-1.0) % D-Dimer, Quantitative 1430 H (0-400) ng/mL Sodium (136-145) mmol/L Potassium (3.5-5.1) mmol/L Chloride (98-107) mmol/L Carbon Dioxide (21-32) mmol/L Anion Gap (7-13) mEq/L BUN (7-18) mg/dL Creatinine (0.70-1.30) mg/dL Est Cr Clr Drug Dosing mL/min Estimated GFR (MDRD) BUN/Creatinine Ratio (No establ ref range) Glucose (74-99) mg/dL Lactic Acid 2.4 H* (0.4-2.0) mmol/L Calcium (8.5-10.1) mg/dL Phosphorus (2.6-4.7) mg/dL Magnesium (1.8-2.4) mg/dL Total Bilirubin (0.2-1.0) mg/dL Direct Bilirubin (0.0-0.2) mg/dL Indirect Bilirubin AST (15-37) U/L ALT (16-63) U/L Alkaline Phosphatase (46-116) U/L Ammonia (11-32) umol/L B-Natriuretic Peptide 147 H (0-100) pg/ml Total Protein (6.4-8.2) g/dL Albumin (3.4-5.0) g/dL Globulin Albumin/Globulin Ratio Urine Color (YELLOW) Urine Appearance (CLEAR) Urine pH (5.0-9.0) Ur Specific Sterling (1.005-1.030) Urine Protein (NEGATIVE) Urine Glucose (UA) (NEGATIVE) Urine Ketones (NEGATIVE) Urine Occult Blood (NEGATIVE) Urine Nitrite (NEGATIVE) Urine Bilirubin (NEGATIVE) Urine Urobilinogen (0.2-1.0) mg/dL Ur Leukocyte Esterase (NEGATIVE) Urine RBC /HPF Urine WBC (0-5/HPF) /HPF Ur Epithelial Cells (NOT SEEN) /HPF Amorphous Sediment (NOT SEEN) /HPF Urine Bacteria (0-FEW/HPF) /HPF Urine Mucus (NOT SEEN) /LPF Urine Opiates Screen (NEGATIVE) Ur Oxycodone Screen (NEGATIVE) Urine Methadone Screen (NEGATIVE) Ur Barbiturates Screen (NEGATIVE) U Tricyclic Antidepress (NEGATIVE) Ur Phencyclidine Scrn (NEGATIVE) Ur Amphetamine Screen (NEGATIVE) U Methamphetamines Scrn (NEGATIVE) Urine MDMA Screen (NEGATIVE) U Benzodiazepines Scrn (NEGATIVE) Urine Cocaine Screen (NEGATIVE) U Marijuana (THC) Screen (NEGATIVE) Ethyl Alcohol (0) mg/dL SARS-CoV-2 RNA (RT-PCR) (NEGATIVE) 03/26/20 03/26/20 03/26/20 Range/Units 13:58 15:02 15:02 WBC (5.0-10.0) 10^3/uL RBC (4.6-6.2) 10^6/uL Hgb (14.0-18.0) g/dL Hct (40.0-54.0) % MCV (80-100) fL MCH (27.0-34.0) pg MCHC (33.0-35.0) g/dL Plt Count (150-450) 10^3/uL Neut % (Auto) (42.2-75.2) % Lymph % (Auto) (20.5-50.1) % Johnson % (Auto) (2-8) % Eos % (Auto) (1.0-3.0) % Baso % (Auto) (0.0-1.0) % D-Dimer, Quantitative (0-400) ng/mL Sodium (136-145) mmol/L Potassium (3.5-5.1) mmol/L Chloride (98-107) mmol/L Carbon Dioxide (21-32) mmol/L Anion Gap (7-13) mEq/L BUN (7-18) mg/dL Creatinine (0.70-1.30) mg/dL Est Cr Clr Drug Dosing mL/min Estimated GFR (MDRD) BUN/Creatinine Ratio (No establ ref range) Glucose (74-99) mg/dL Lactic Acid (0.4-2.0) mmol/L Calcium (8.5-10.1) mg/dL Phosphorus (2.6-4.7) mg/dL Magnesium (1.8-2.4) mg/dL Total Bilirubin (0.2-1.0) mg/dL Direct Bilirubin (0.0-0.2) mg/dL Indirect Bilirubin AST (15-37) U/L ALT (16-63) U/L Alkaline Phosphatase (46-116) U/L Ammonia (11-32) umol/L B-Natriuretic Peptide (0-100) pg/ml Total Protein (6.4-8.2) g/dL Albumin (3.4-5.0) g/dL Globulin Albumin/Globulin Ratio Urine Color Yellow (YELLOW) Urine Appearance Slightly cloudy (CLEAR) Urine pH 8.0 (5.0-9.0) Ur Specific Sterling 1.020 (1.005-1.030) Urine Protein 100 H (NEGATIVE) Urine Glucose (UA) Negative (NEGATIVE) Urine Ketones Negative (NEGATIVE) Urine Occult Blood Large H (NEGATIVE) Urine Nitrite Negative (NEGATIVE) Urine Bilirubin Negative (NEGATIVE) Urine Urobilinogen 0.2 (0.2-1.0) mg/dL Ur Leukocyte Esterase Negative (NEGATIVE) Urine RBC >100 H /HPF Urine WBC 0-5 (0-5/HPF) /HPF Ur Epithelial Cells Rare (NOT SEEN) /HPF Amorphous Sediment Rare (NOT SEEN) /HPF Urine Bacteria Rare (0-FEW/HPF) /HPF Urine Mucus Not seen (NOT SEEN) /LPF Urine Opiates Screen Negative (NEGATIVE) Ur Oxycodone Screen Negative (NEGATIVE) Urine Methadone Screen Negative (NEGATIVE) Ur Barbiturates Screen Negative (NEGATIVE) U Tricyclic Antidepress Negative (NEGATIVE) Ur Phencyclidine Scrn Negative (NEGATIVE) Ur Amphetamine Screen Negative (NEGATIVE) U Methamphetamines Scrn Negative (NEGATIVE) Urine MDMA Screen Negative (NEGATIVE) U Benzodiazepines Scrn Negative (NEGATIVE) Urine Cocaine Screen Negative (NEGATIVE) U Marijuana (THC) Screen Negative (NEGATIVE) Ethyl Alcohol (0) mg/dL SARS-CoV-2 RNA (RT-PCR) Negative (NEGATIVE) 03/26/20 03/27/20 03/27/20 Range/Units 18:35 00:00 05:40 WBC 10.9 H (5.0-10.0) 10^3/uL RBC 3.01 L (4.6-6.2) 10^6/uL Hgb 10.0 L (14.0-18.0) g/dL Hct 29.1 L (40.0-54.0) % MCV 96.7 (80-100) fL MCH 33.2 (27.0-34.0) pg MCHC 34.4 (33.0-35.0) g/dL Plt Count 94 L (150-450) 10^3/uL Neut % (Auto) (42.2-75.2) % Lymph % (Auto) (20.5-50.1) % Johnson % (Auto) (2-8) % Eos % (Auto) (1.0-3.0) % Baso % (Auto) (0.0-1.0) % D-Dimer, Quantitative (0-400) ng/mL Sodium (136-145) mmol/L Potassium 3.0 L (3.5-5.1) mmol/L Chloride (98-107) mmol/L Carbon Dioxide (21-32) mmol/L Anion Gap (7-13) mEq/L BUN (7-18) mg/dL Creatinine (0.70-1.30) mg/dL Est Cr Clr Drug Dosing mL/min Estimated GFR (MDRD) BUN/Creatinine Ratio (No establ ref range) Glucose (74-99) mg/dL Lactic Acid 1.2 (0.4-2.0) mmol/L Calcium (8.5-10.1) mg/dL Phosphorus (2.6-4.7) mg/dL Magnesium (1.8-2.4) mg/dL Total Bilirubin (0.2-1.0) mg/dL Direct Bilirubin (0.0-0.2) mg/dL Indirect Bilirubin AST (15-37) U/L ALT (16-63) U/L Alkaline Phosphatase (46-116) U/L Ammonia (11-32) umol/L B-Natriuretic Peptide (0-100) pg/ml Total Protein (6.4-8.2) g/dL Albumin (3.4-5.0) g/dL Globulin Albumin/Globulin Ratio Urine Color (YELLOW) Urine Appearance (CLEAR) Urine pH (5.0-9.0) Ur Specific Sterling (1.005-1.030) Urine Protein (NEGATIVE) Urine Glucose (UA) (NEGATIVE) Urine Ketones (NEGATIVE) Urine Occult Blood (NEGATIVE) Urine Nitrite (NEGATIVE) Urine Bilirubin (NEGATIVE) Urine Urobilinogen (0.2-1.0) mg/dL Ur Leukocyte Esterase (NEGATIVE) Urine RBC /HPF Urine WBC (0-5/HPF) /HPF Ur Epithelial Cells (NOT SEEN) /HPF Amorphous Sediment (NOT SEEN) /HPF Urine Bacteria (0-FEW/HPF) /HPF Urine Mucus (NOT SEEN) /LPF Urine Opiates Screen (NEGATIVE) Ur Oxycodone Screen (NEGATIVE) Urine Methadone Screen (NEGATIVE) Ur Barbiturates Screen (NEGATIVE) U Tricyclic Antidepress (NEGATIVE) Ur Phencyclidine Scrn (NEGATIVE) Ur Amphetamine Screen (NEGATIVE) U Methamphetamines Scrn (NEGATIVE) Urine MDMA Screen (NEGATIVE) U Benzodiazepines Scrn (NEGATIVE) Urine Cocaine Screen (NEGATIVE) U Marijuana (THC) Screen (NEGATIVE) Ethyl Alcohol (0) mg/dL SARS-CoV-2 RNA (RT-PCR) (NEGATIVE) 03/27/20 Range/Units 05:40 WBC (5.0-10.0) 10^3/uL RBC (4.6-6.2) 10^6/uL Hgb (14.0-18.0) g/dL Hct (40.0-54.0) % MCV (80-100) fL MCH (27.0-34.0) pg MCHC (33.0-35.0) g/dL Plt Count (150-450) 10^3/uL Neut % (Auto) (42.2-75.2) % Lymph % (Auto) (20.5-50.1) % Johnson % (Auto) (2-8) % Eos % (Auto) (1.0-3.0) % Baso % (Auto) (0.0-1.0) % D-Dimer, Quantitative (0-400) ng/mL Sodium 134 L (136-145) mmol/L Potassium 3.0 L (3.5-5.1) mmol/L Chloride 102 (98-107) mmol/L Carbon Dioxide 25 (21-32) mmol/L Anion Gap 10.0 (7-13) mEq/L BUN 20 H (7-18) mg/dL Creatinine 1.54 H (0.70-1.30) mg/dL Est Cr Clr Drug Dosing 59.02 mL/min Estimated GFR (MDRD) 50 BUN/Creatinine Ratio (No establ ref range) Glucose 112 H (74-99) mg/dL Lactic Acid (0.4-2.0) mmol/L Calcium 7.0 L (8.5-10.1) mg/dL Phosphorus 2.5 L (2.6-4.7) mg/dL Magnesium 1.7 L (1.8-2.4) mg/dL Total Bilirubin 2.8 H (0.2-1.0) mg/dL Direct Bilirubin 1.3 H (0.0-0.2) mg/dL Indirect Bilirubin 1.5 AST 54 H (15-37) U/L ALT 26 (16-63) U/L Alkaline Phosphatase 102 (46-116) U/L Ammonia (11-32) umol/L B-Natriuretic Peptide (0-100) pg/ml Total Protein 7.7 (6.4-8.2) g/dL Albumin 1.7 L (3.4-5.0) g/dL Globulin 6.0 Albumin/Globulin Ratio 0.28 Urine Color (YELLOW) Urine Appearance (CLEAR) Urine pH (5.0-9.0) Ur Specific Sterling (1.005-1.030) Urine Protein (NEGATIVE) Urine Glucose (UA) (NEGATIVE) Urine Ketones (NEGATIVE) Urine Occult Blood (NEGATIVE) Urine Nitrite (NEGATIVE) Urine Bilirubin (NEGATIVE) Urine Urobilinogen (0.2-1.0) mg/dL Ur Leukocyte Esterase (NEGATIVE) Urine RBC /HPF Urine WBC (0-5/HPF) /HPF Ur Epithelial Cells (NOT SEEN) /HPF Amorphous Sediment (NOT SEEN) /HPF Urine Bacteria (0-FEW/HPF) /HPF Urine Mucus (NOT SEEN) /LPF Urine Opiates Screen (NEGATIVE) Ur Oxycodone Screen (NEGATIVE) Urine Methadone Screen (NEGATIVE) Ur Barbiturates Screen (NEGATIVE) U Tricyclic Antidepress (NEGATIVE) Ur Phencyclidine Scrn (NEGATIVE) Ur Amphetamine Screen (NEGATIVE) U Methamphetamines Scrn (NEGATIVE) Urine MDMA Screen (NEGATIVE) U Benzodiazepines Scrn (NEGATIVE) Urine Cocaine Screen (NEGATIVE) U Marijuana (THC) Screen (NEGATIVE) Ethyl Alcohol (0) mg/dL SARS-CoV-2 RNA (RT-PCR) (NEGATIVE) Med Orders - Current: Current Medications Acetaminophen (Tylenol) 650 mg PO Q6H PRN PRN Reason: Pain/Fever Last Admin: 03/27/20 05:54 Dose: 650 mg Heparin Sodium (Porcine) (Heparin Sodium) 5,000 units SUBCUT Q8HR [facility] Last Admin: 03/27/20 05:35 Dose: Not Given Hydrochlorothiazide (Hydrochlorothiazide) 25 mg PO DAILY [facility] Last Admin: 03/27/20 08:52 Dose: 25 mg Sodium Chloride (Normal Saline) 1,000 mls @ 100 mls/hr IV ASDIRECTED SILVESTRE Last Admin: 03/27/20 05:55 Dose: 100 mls/hr Cefazolin Sodium/Dextrose 1 gm (/ Premix) 50 mls @ 100 mls/hr IV Q8H [facility] Last Admin: 03/27/20 05:55 Dose: 100 mls/hr Metoprolol Succinate (Toprol Xl) 25 mg PO DAILY [facility] Last Admin: 03/27/20 08:52 Dose: 25 mg Potassium Chloride (Klor-Con 10) 40 meq PO Q4H [facility] Stop: 03/27/20 14:31 Sodium Chloride (Saline Flush) 10 ml FLUSH ASDIRECTED PRN PRN Reason: Keep Vein Open Last Admin: 03/27/20 08:55 Dose: 10 ml Sodium Chloride (Saline Flush) 10 ml FLUSH ASDIRECTED PRN PRN Reason: Keep Vein Open Discontinued Medications Sodium Chloride (Normal Saline) 1,000 mls @ 250 mls/hr IV .BOLUS ONE Stop: 03/26/20 17:44 Last Admin: 03/26/20 13:50 Dose: 250 mls/hr Vancomycin HCl 1,500 mg/ (Sodium Chloride) 500 mls @ 333.333 mls/hr IV ONETIME ONE Stop: 03/26/20 16:51 Last Admin: 03/26/20 15:42 Dose: 333.333 mls/hr Cefazolin Sodium/Dextrose 1 gm (/ Premix) 50 mls @ 100 mls/hr IV Q8H [facility] Last Admin: 03/26/20 18:36 Dose: 100 mls/hr Potassium Chloride 10 meq/ (Premix) 100 mls @ 100 mls/hr IV Q1H [facility] Stop: 03/26/20 21:59 Last Infusion: 03/27/20 05:53 Dose: Infused Potassium Chloride (Klor-Con 10) 40 meq PO ONETIME ONE Stop: 03/26/20 17:57 Last Admin: 03/26/20 18:35 Dose: 40 meq Potassium Chloride (Klor-Con 10) 40 meq PO ONETIME ONE Stop: 03/27/20 00:24 Last Admin: 03/27/20 00:31 Dose: 40 meq - Exam General: Alert, Oriented HEENT: Pupils Equal, Pupils Reactive, Scleral Icterus Neck: Supple Lungs: Clear to Auscultation, Normal Respiratory Effort Cardiovascular: Regular Rate, Regular Rhythm GI/Abdominal Exam: Normal Bowel Sounds, Soft, Non-Tender, No Organomegaly Extremities: Other (left leg swelling, hyperpigmentation) Neurological: No New Focal Deficit Psy/Mental Status: Alert, Normal Affect, Normal Mood Sepsis Event Note - Evaluation Sepsis Screening Result: Sepsis Risk - Focused Exam Vital Signs: Vital Signs Temp Pulse Pulse Resp BP BP Pulse Ox 03/27/20 08:52 90 112/64 03/27/20 08:51 37.1 C 90 20 112/64 100 03/27/20 04:00 37.6 C 82 03/27/20 00:00 37.8 C Date Exam was Performed: 03/27/20 Time Exam was Performed: 10:36 - Problem List Review Problem List Initiated/Reviewed/Updated: Yes - My Orders Last 24 Hours: My Active Orders 03/26/20 17:18 Acetaminophen [Tylenol] 650 mg PO Q6H PRN 03/26/20 17:19 Telemetry Monitoring [Cardiac Monitoring] [RC] 03/26/20 17:30 Sodium Chloride 0.9% [Normal Saline] 1,000 ml IV ASDIRECTED 03/26/20 17:57 Sodium Chloride 0.9% [Saline Flush] 10 ml FLUSH ASDIRECTED PRN Sodium Chloride 0.9% [Saline Flush] 10 ml FLUSH ASDIRECTED PRN Resuscitation Status Routine 03/26/20 17:58 Ambulate [RC] ASDIRECTED Height and Weight [RC] 06 Oxygen Therapy [RC] PRN Peripheral IV Care [RC] 09,21 Up With Assistance [RC] ASDIRECTED VTE/DVT Education [RC] PER UNIT ROUTINE Vital Signs [RC] 00,04,08,12,16,20 Peripheral IV Insertion Adult [OM.PC] Routine Saline Lock Insert [OM.PC] Routine 03/26/20 18:00 Admission Status [Patient Status] [ADT] Routine 03/26/20 22:00 Heparin Sodium 5,000 units SUBCUT Q8HR 03/27/20 06:00 ceFAZolin [Ancef] 1 gm Premix Bag 1 bag IV Q8H 03/27/20 09:00 Metoprolol Succinate [Toprol XL] 25 mg PO DAILY hydroCHLOROthiazide 25 mg PO DAILY 03/27/20 10:30 Potassium Chloride [Klor-Con 10] 40 meq PO Q4H 03/27/20 18:00 POTASSIUM,K [CHEM] Timed 03/28/20 05:11 BASIC METABOLIC PANEL,BMP [CHEM] AM CBC W/O DIFF,HEMOGRAM [HEME] AM HEPATIC FUNCTION PANEL,HFP [CHEM] AM MAGNESIUM [CHEM] AM PHOSPHORUS [CHEM] AM 03/29/20 05:11 BASIC METABOLIC PANEL,BMP [CHEM] AM CBC W/O DIFF,HEMOGRAM [HEME] AM HEPATIC FUNCTION PANEL,HFP [CHEM] AM MAGNESIUM [CHEM] AM PHOSPHORUS [CHEM] AM - Plan Plan:: Right lower ext cellulitis Sepsis: fever, leucocytosis -COVID test negative -IV cefazolin 1 g Q8hrs -f/u blood cx -repeat lactic acid -Can DC IV fluid Hypokalemia -replenish potassium orally -recheck K+ levels Chronic liver disease Icterus -elevated bilirubin, jaundice, low albumin, mild thrombocytopenia -likely has CLD/cirrhosis -check RUQ US as O/P -f/u in GI clinic as O/P Bilateral warts/possible fungal infection of feet -follow up with podiatry O/P for biopsy CKD -monitor Cr daily -avoid nephrotoxic agents -O/P f/u with the nephrology clinic HTN -continue home meds DVT ppx SC heparin, monitor platelets, hold for plt less than 50 Code status. FC
[2020-03-27] MEDS: Potassium Chloride 10 MEQ Tab.ER PO SCH ×2 (10:56→14:39)
[2020-03-28] MEDS: ceFAZolin 1 GM in Premix Bag 1 BAG IV SCH ×3 (06:04→22:10)
[2020-03-28] MEDS: Heparin Sodium 5,000 Units/ML Vial SUBCUT SCH ×3 (06:04→22:10)
[2020-03-28] MEDS: Hydrochlorothiazide 25 MG Tab PO SCH (09:01)
[2020-03-28] MEDS: Metoprolol Succinate 25 MG Tab.ER PO SCH (09:01)
[2020-03-28] MEDS ORDERED: Potassium Chloride 10 MEQ Tab.ER PO ONE ×2 (09:39→13:00)
--- NOTE | 2020-03-28 10:36 | PCM.PN ---
- General Info Date of Service: 03/28/20 Admission Dx/Problem (Free Text): Admission Diagnosis/Problem Admission Diagnosis/Problem Cellulitis Subjective Update: The pt was seen and examined in the room, doing well, No nausea or vomiting, last night spiked temperature but this morning afebrile, appetite is good, No abdominal pain and no shortness of breath Functional Status: Reports: Pain Controlled, Tolerating Diet, Ambulating, Urinating - Review of Systems General: Reports: Weakness, Appetite (acceptable). Denies: Fever, Chills HEENT: Denies: Dysphasia, Headaches, Sinus Congestion, Sore Throat, Visual Changes Pulmonary: Denies: Shortness of Breath, Cough, Sputum, Wheezing Cardiovascular: Denies: Chest Pain, Dyspnea on Exertion, Edema, Lightheadedness Gastrointestinal: Denies: Abdominal Pain, Constipation, Difficulty Swallowing, Nausea, Vomiting Genitourinary: Denies: Dysuria, Urgency, Flank Pain Musculoskeletal: Denies: Neck Pain, Leg Pain, Foot Pain Skin: Denies: Jaundice, Bruising, Pruritis, Rash Neurological: Denies: Confusion, Paresthesia, Tremors Psychiatric: Denies: Confusion, Anxiety, Hallucinations - Patient Data Vitals - Most Recent: Last Vital Signs Temp 36.9 C 03/28/20 08:00 Pulse 93 03/28/20 09:01 Resp 20 03/28/20 08:00 BP 108/60 03/28/20 09:01 Pulse Ox 100 03/28/20 08:00 Weight - Most Recent: 85.457 kg I&O - Last 24 Hours: Intake & Output 03/27/20 03/28/20 03/28/20 22:59 06:59 14:59 Intake Total 800 120 Balance 800 120 Lab Results Last 24 Hours: Laboratory Results - last 24 hr 03/27/20 03/28/20 03/28/20 Range/Units 18:05 06:15 06:15 WBC 7.8 (5.0-10.0) 10^3/uL RBC 3.26 L (4.6-6.2) 10^6/uL Hgb 10.7 L (14.0-18.0) g/dL Hct 31.1 L (40.0-54.0) % MCV 95.4 (80-100) fL MCH 32.8 (27.0-34.0) pg MCHC 34.4 (33.0-35.0) g/dL Plt Count 107 L (150-450) 10^3/uL Sodium 134 L (136-145) mmol/L Potassium 3.5 3.0 L (3.5-5.1) mmol/L Chloride 104 (98-107) mmol/L Carbon Dioxide 21 (21-32) mmol/L Anion Gap 12.0 (7-13) mEq/L BUN 16 (7-18) mg/dL Creatinine 1.34 H (0.70-1.30) mg/dL Est Cr Clr Drug Dosing 67.83 mL/min Estimated GFR (MDRD) 59 Glucose 127 H (74-99) mg/dL Calcium 7.3 L (8.5-10.1) mg/dL Phosphorus 2.4 L (2.6-4.7) mg/dL Magnesium 1.9 (1.8-2.4) mg/dL Total Bilirubin 1.3 H (0.2-1.0) mg/dL Direct Bilirubin 0.7 H (0.0-0.2) mg/dL Indirect Bilirubin 0.6 AST 44 H (15-37) U/L ALT 22 (16-63) U/L Alkaline Phosphatase 135 H (46-116) U/L Total Protein 7.9 (6.4-8.2) g/dL Albumin 1.6 L (3.4-5.0) g/dL Globulin 6.3 Albumin/Globulin Ratio 0.25 Andrew Results Last 24 Hours: Microbiology 03/26/20 14:00 Aerobic Blood Culture - Preliminary Blood - Venous - Lab Draw NO GROWTH AFTER 1 DAY Anaerobic Blood Culture - Preliminary NO GROWTH AFTER 1 DAY 03/26/20 13:55 Aerobic Blood Culture - Preliminary Blood - Venous NO GROWTH AFTER 1 DAY Anaerobic Blood Culture - Preliminary NO GROWTH AFTER 1 DAY Med Orders - Current: Current Medications Acetaminophen (Tylenol) 650 mg PO Q6H PRN PRN Reason: Pain/Fever Last Admin: 03/27/20 20:46 Dose: 650 mg Heparin Sodium (Porcine) (Heparin Sodium) 5,000 units SUBCUT Q8HR [facility] Last Admin: 03/28/20 06:04 Dose: 5,000 units Hydrochlorothiazide (Hydrochlorothiazide) 25 mg PO DAILY [facility] Last Admin: 03/28/20 09:01 Dose: 25 mg Cefazolin Sodium/Dextrose 1 gm (/ Premix) 50 mls @ 100 mls/hr IV Q8H [facility] Last Admin: 03/28/20 06:04 Dose: 100 mls/hr Metoprolol Succinate (Toprol Xl) 25 mg PO DAILY [facility] Last Admin: 03/28/20 09:01 Dose: 25 mg Potassium Chloride (Klor-Con 10) 20 meq PO ONETIME ONE Stop: 03/28/20 13:01 Sodium Chloride (Saline Flush) 10 ml FLUSH ASDIRECTED PRN PRN Reason: Keep Vein Open Last Admin: 03/27/20 14:39 Dose: 10 ml Sodium Chloride (Saline Flush) 10 ml FLUSH ASDIRECTED PRN PRN Reason: Keep Vein Open Sodium Phosphate (Neutra-Phos) 250 mg PO TID [facility] Discontinued Medications Sodium Chloride (Normal Saline) 1,000 mls @ 250 mls/hr IV .BOLUS ONE Stop: 03/26/20 17:44 Last Admin: 03/26/20 13:50 Dose: 250 mls/hr Vancomycin HCl 1,500 mg/ (Sodium Chloride) 500 mls @ 333.333 mls/hr IV ONETIME ONE Stop: 03/26/20 16:51 Last Admin: 03/26/20 15:42 Dose: 333.333 mls/hr Sodium Chloride (Normal Saline) 1,000 mls @ 100 mls/hr IV ASDIRECTED [facility] Last Infusion: 03/27/20 11:03 Dose: 100 mls/hr Cefazolin Sodium/Dextrose 1 gm (/ Premix) 50 mls @ 100 mls/hr IV Q8H [facility] Last Admin: 03/26/20 18:36 Dose: 100 mls/hr Potassium Chloride 10 meq/ (Premix) 100 mls @ 100 mls/hr IV Q1H [facility] Stop: 03/26/20 21:59 Last Infusion: 03/27/20 05:53 Dose: Infused Potassium Chloride (Klor-Con 10) 40 meq PO ONETIME ONE Stop: 03/26/20 17:57 Last Admin: 03/26/20 18:35 Dose: 40 meq Potassium Chloride (Klor-Con 10) 40 meq PO ONETIME ONE Stop: 03/27/20 00:24 Last Admin: 03/27/20 00:31 Dose: 40 meq Potassium Chloride (Klor-Con 10) 40 meq PO Q4H [facility] Stop: 03/27/20 14:31 Last Admin: 03/27/20 14:39 Dose: 40 meq Potassium Chloride (Klor-Con 10) 40 meq PO ONETIME ONE Stop: 03/28/20 09:40 - Exam Quality Assessment: DVT Prophylaxis. No: Supplemental Oxygen, Urine Catheter General: Alert, Oriented, Cooperative, No Acute Distress HEENT: Pupils Equal, EOMI, Mucous Membr. Moist/[place] Neck: Supple, No JVD, No Thyromegaly Lungs: Clear to Auscultation, Normal Respiratory Effort. No: Crackles, Wheezing Cardiovascular: Regular Rate, Regular Rhythm, No Murmurs GI/Abdominal Exam: Normal Bowel Sounds. No: Guarding, Rigid, Rebound, Tender (Male) Exam: Deferred Back Exam: Normal Inspection, Full Range of Motion Extremities: Normal Inspection, No Pedal Edema Skin: Warm, Dry, Intact Neurological: No New Focal Deficit Psy/Mental Status: Alert, Normal Affect, Normal Mood Sepsis Event Note - Evaluation Sepsis Screening Result: Sepsis Risk - Focused Exam Vital Signs: Vital Signs Temp Pulse Pulse Resp BP BP Pulse Ox 03/28/20 09:01 93 108/60 03/28/20 08:00 36.9 C 93 20 108/60 100 03/28/20 02:00 36.9 C Date Exam was Performed: 03/28/20 Time Exam was Performed: 10:26 - Problem List Review Problem List Initiated/Reviewed/Updated: Yes - My Orders Last 24 Hours: My Active Orders 03/28/20 13:00 Potassium Chloride [Klor-Con 10] 20 meq PO ONETIME ONE 03/28/20 14:00 Phosphorus #1 [Neutra-Phos] 250 mg PO TID 03/29/20 06:00 BASIC METABOLIC PANEL,BMP [CHEM] Routine - Plan Plan:: 39 yo M with PMH of HTN, alcohol abuse who presents with fever, right leg swelling and hyperpigmentation of unknown duration. Patient had labs done prior to PCP visit scheduled for tomorrow. Lab work was abnormal with low potassium and elevated WBC and he was asked to go to the ED. In the ED, he was found to be febrile. He also had right leg swelling and hyperpigmentation. He can't remember when this started and he has no problem ambulating. He has no pain in the right leg. He wasn't aware he was febrile and he had no other complaints. No chest pain, no cough, no SOB, no painful urination. No hx of IV drug use. Doesn't smoke, drank alcohol in the past. Pulses were intact in both lower ext. DVT study was done on right lower ext and no DVT seen. He was started on abx and admitted to the medical floor. 1. Right lower ext cellulitis. Sepsis: fever, leucocytosis -COVID test negative -IV cefazolin 1 g Q8hrs -f/u blood cx ( no report yet as of today) 2. Hypokalemia -replenish potassium orally, give potassium chloride 40 meq now and another 20 mew 3 hrs later -recheck potassium in AM 3. Chronic liver disease -elevated bilirubin, jaundice, low albumin, mild thrombocytopenia -likely has CLD/cirrhosis -check RUQ US as O/P -f/u in GI clinic as O/P 4. Bilateral warts/possible fungal infection of feet -follow up with podiatry O/P for biopsy 5. CKD at stage III: This is likely from Hypertension and possible HRS type II -Base line creatinine 1.3-1.6 mg/dl -avoid nephrotoxic agents -Will schedule follow up in nephrology clinic 6. Hypertension : BP acceptable and will continue Metoprolol at 25 mg daily and Hydrochlorothiazide at 25 mg daily 7. Hypophosphatemia: This is likely from Liver disease and not eating proper diet, will start kphos neutral 250 mg TID DVT Prophylaxis: SC heparin, monitor platelets, hold for plt less than 50 Code status.: Full Code
[2020-03-28] MEDS: Phosphorus #1 250 MG Tab PO SCH ×2 (13:58→22:10)
[2020-03-28] MEDS: Sodium Chloride 0.9% 10 ML Syringe FLUSH PRN (13:58)
[2020-03-28] MEDS: Acetaminophen 325 MG Tab PO PRN (16:44)
[2020-03-29] MEDS: Acetaminophen 325 MG Tab PO PRN ×2 (03:22→19:56)
[2020-03-29] MEDS: Heparin Sodium 5,000 Units/ML Vial SUBCUT SCH ×3 (06:09→21:32)
[2020-03-29] MEDS: ceFAZolin 1 GM in Premix Bag 1 BAG IV SCH ×3 (06:11→21:25)
[2020-03-29 06:41] LABS: ANION GAP 14.3 mEq/L (7-13); CHLORIDE,CL 103 mmol/L (98-107); SODIUM,NA 135 mmol/L (136-145)
[2020-03-29] MEDS: Phosphorus #1 250 MG Tab PO SCH ×3 (08:39→21:30)
[2020-03-29] MEDS: Metoprolol Succinate 25 MG Tab.ER PO SCH (08:39)
[2020-03-29] MEDS: Hydrochlorothiazide 25 MG Tab PO SCH (08:39)
[2020-03-29] MEDS ORDERED: Potassium Chloride 10 MEQ Tab.ER PO ONE ×2 (09:46→14:00)
--- NOTE | 2020-03-29 10:19 | PCM.PN ---
- General Info Date of Service: 03/29/20 Admission Dx/Problem (Free Text): Admission Diagnosis/Problem Admission Diagnosis/Problem Cellulitis Subjective Update: The pt was seen and examined in the room, doing well, No nausea or vomiting, he remain afebrile for the last 24 hrs, appetite is good, No abdominal pain and no shortness of breath Functional Status: Reports: Pain Controlled, Tolerating Diet, Ambulating, Urinating - Review of Systems General: Reports: Appetite (acceptable). Denies: Fever, Weakness, Chills HEENT: Denies: Headaches, Sinus Congestion, Sore Throat, Visual Changes Pulmonary: Denies: Shortness of Breath, Cough, Sputum, Wheezing Cardiovascular: Denies: Chest Pain, Dyspnea on Exertion, Lightheadedness Gastrointestinal: Denies: Abdominal Pain, Difficulty Swallowing, Nausea, Vomiting Genitourinary: Denies: Dysuria, Frequency, Burning, Flank Pain Musculoskeletal: Reports: Leg Pain (RT LE). Denies: Neck Pain, Foot Pain, Joint Pain Skin: Denies: Jaundice, Bruising, Pruritis, Rash Neurological: Denies: Dizziness, Headache, Paresthesia, Tremors Psychiatric: Reports: No Symptoms - Patient Data Vitals - Most Recent: Last Vital Signs Temp 36.9 C 03/29/20 08:00 Pulse 80 03/29/20 08:39 Resp 20 03/29/20 08:00 BP 105/62 03/29/20 08:39 Pulse Ox 99 03/29/20 08:00 Weight - Most Recent: 85.457 kg I&O - Last 24 Hours: Intake & Output 03/28/20 03/29/20 03/29/20 22:59 06:59 14:59 Intake Total 918 102 Balance 918 102 Lab Results Last 24 Hours: Laboratory Results - last 24 hr 03/29/20 03/29/20 Range/Units 05:55 05:55 WBC 7.4 (5.0-10.0) 10^3/uL RBC 3.35 L (4.6-6.2) 10^6/uL Hgb 11.0 L (14.0-18.0) g/dL Hct 31.8 L (40.0-54.0) % MCV 94.9 (80-100) fL MCH 32.8 (27.0-34.0) pg MCHC 34.6 (33.0-35.0) g/dL Plt Count 134 L (150-450) 10^3/uL Sodium 135 L (136-145) mmol/L Potassium 3.3 L (3.5-5.1) mmol/L Chloride 103 (98-107) mmol/L Carbon Dioxide 21 (21-32) mmol/L Anion Gap 14.3 H (7-13) mEq/L BUN 14 (7-18) mg/dL Creatinine 1.21 (0.70-1.30) mg/dL Est Cr Clr Drug Dosing 75.11 mL/min Estimated GFR (MDRD) > 60 Glucose 89 (74-99) mg/dL Calcium 7.3 L (8.5-10.1) mg/dL Andrew Results Last 24 Hours: Microbiology 03/26/20 14:00 Aerobic Blood Culture - Preliminary Blood - Venous - Lab Draw NO GROWTH AFTER 2 DAYS Anaerobic Blood Culture - Preliminary NO GROWTH AFTER 2 DAYS 03/26/20 13:55 Aerobic Blood Culture - Preliminary Blood - Venous NO GROWTH AFTER 2 DAYS Anaerobic Blood Culture - Preliminary NO GROWTH AFTER 2 DAYS Med Orders - Current: Current Medications Acetaminophen (Tylenol) 650 mg PO Q6H PRN PRN Reason: Pain/Fever Last Admin: 03/29/20 03:22 Dose: 650 mg Heparin Sodium (Porcine) (Heparin Sodium) 5,000 units SUBCUT Q8HR [facility] Last Admin: 03/29/20 06:09 Dose: 5,000 units Hydrochlorothiazide (Hydrochlorothiazide) 25 mg PO DAILY [facility] Last Admin: 03/29/20 08:39 Dose: 25 mg Cefazolin Sodium/Dextrose 1 gm (/ Premix) 50 mls @ 100 mls/hr IV Q8H [facility] Last Admin: 03/29/20 06:11 Dose: 100 mls/hr Metoprolol Succinate (Toprol Xl) 25 mg PO DAILY [facility] Last Admin: 03/29/20 08:39 Dose: 25 mg Potassium Chloride (Klor-Con 10) 20 meq PO ONETIME ONE Stop: 03/29/20 14:01 Sodium Chloride (Saline Flush) 10 ml FLUSH ASDIRECTED PRN PRN Reason: Keep Vein Open Last Admin: 03/28/20 13:58 Dose: 10 ml Sodium Chloride (Saline Flush) 10 ml FLUSH ASDIRECTED PRN PRN Reason: Keep Vein Open Sodium Phosphate (Neutra-Phos) 250 mg PO TID [facility] Last Admin: 03/29/20 08:39 Dose: 250 mg Discontinued Medications Sodium Chloride (Normal Saline) 1,000 mls @ 250 mls/hr IV .BOLUS ONE Stop: 03/26/20 17:44 Last Admin: 03/26/20 13:50 Dose: 250 mls/hr Vancomycin HCl 1,500 mg/ (Sodium Chloride) 500 mls @ 333.333 mls/hr IV ONETIME ONE Stop: 03/26/20 16:51 Last Admin: 03/26/20 15:42 Dose: 333.333 mls/hr Sodium Chloride (Normal Saline) 1,000 mls @ 100 mls/hr IV ASDIRECTED [facility] Last Infusion: 03/27/20 11:03 Dose: 100 mls/hr Cefazolin Sodium/Dextrose 1 gm (/ Premix) 50 mls @ 100 mls/hr IV Q8H [facility] Last Admin: 03/26/20 18:36 Dose: 100 mls/hr Potassium Chloride 10 meq/ (Premix) 100 mls @ 100 mls/hr IV Q1H [facility] Stop: 03/26/20 21:59 Last Infusion: 03/27/20 05:53 Dose: Infused Potassium Chloride (Klor-Con 10) 40 meq PO ONETIME ONE Stop: 03/26/20 17:57 Last Admin: 03/26/20 18:35 Dose: 40 meq Potassium Chloride (Klor-Con 10) 40 meq PO ONETIME ONE Stop: 03/27/20 00:24 Last Admin: 03/27/20 00:31 Dose: 40 meq Potassium Chloride (Klor-Con 10) 40 meq PO Q4H [facility] Stop: 03/27/20 14:31 Last Admin: 03/27/20 14:39 Dose: 40 meq Potassium Chloride (Klor-Con 10) 40 meq PO ONETIME ONE Stop: 03/28/20 09:40 Last Admin: 03/28/20 10:28 Dose: 40 meq Potassium Chloride (Klor-Con 10) 20 meq PO ONETIME ONE Stop: 03/28/20 13:01 Last Admin: 03/28/20 12:26 Dose: 20 meq Potassium Chloride (Klor-Con 10) 40 meq PO ONETIME ONE Stop: 03/29/20 09:47 - Exam Quality Assessment: DVT Prophylaxis. No: Supplemental Oxygen, Urine Catheter General: Alert, Oriented. No: No Acute Distress HEENT: Pupils Equal, EOMI, Mucous Membr. Moist/[place] Neck: Supple, No JVD, No Thyromegaly Lungs: Clear to Auscultation, Normal Respiratory Effort. No: Crackles, Rales, Wheezing Cardiovascular: Regular Rate, Regular Rhythm, No Murmurs GI/Abdominal Exam: Normal Bowel Sounds, Soft, Non-Tender. No: Guarding, Rigid, Rebound (Male) Exam: Deferred Back Exam: Normal Inspection, Full Range of Motion Extremities: Normal Inspection, No Pedal Edema Skin: Warm, Dry, Intact Neurological: No New Focal Deficit Psy/Mental Status: Alert, Normal Affect, Normal Mood Sepsis Event Note - Evaluation Sepsis Screening Result: Sepsis Risk - Focused Exam Vital Signs: Vital Signs Temp Pulse Pulse Resp BP BP Pulse Ox 03/29/20 08:39 80 105/62 03/29/20 08:00 36.9 C 80 20 105/62 99 03/29/20 04:00 37.2 C 90 20 Date Exam was Performed: 03/29/20 Time Exam was Performed: 10:12 - Problem List Review Problem List Initiated/Reviewed/Updated: Yes - My Orders Last 24 Hours: My Active Orders 03/28/20 14:00 Phosphorus #1 [Neutra-Phos] 250 mg PO TID 03/29/20 09:49 PHOSPHORUS [CHEM] Routine 03/29/20 14:00 Potassium Chloride [Klor-Con 10] 20 meq PO ONETIME ONE 03/30/20 06:00 BASIC METABOLIC PANEL,BMP [CHEM] Routine PHOSPHORUS [CHEM] Routine - Plan Plan:: 39 yo M with PMH of HTN, alcohol abuse who presents with fever, right leg swelling and hyperpigmentation of unknown duration. Patient had labs done prior to PCP visit scheduled for tomorrow. Lab work was abnormal with low potassium and elevated WBC and he was asked to go to the ED. In the ED, he was found to be febrile. He also had right leg swelling and hyperpigmentation. He can't remember when this started and he has no problem ambulating. He has no pain in the right leg. He wasn't aware he was febrile and he had no other complaints. No chest pain, no cough, no SOB, no painful urination. No hx of IV drug use. Doesn't smoke, drank alcohol in the past. Pulses were intact in both lower ext. DVT study was done on right lower ext and no DVT seen. He was started on abx and admitted to the medical floor. 1. Right lower ext cellulitis. Sepsis: fever, leucocytosis -COVID test negative -IV cefazolin 1 g Q8hrs -f/u blood cx ( no growth yet as of today) 2. Hypokalemia -replenish potassium orally, give potassium chloride 40 meq now and another 20 meq 3 hrs later -recheck potassium in AM 3. Chronic liver disease -elevated bilirubin, jaundice, low albumin, mild thrombocytopenia -likely has CLD/cirrhosis -check RUQ US as O/P -f/u in GI clinic as O/P 4. Bilateral warts/possible fungal infection of feet -follow up with podiatry O/P for biopsy 5. CKD at stage III: This is likely from Hypertension and possible HRS type II -Base line creatinine 1.3-1.6 mg/dl -avoid nephrotoxic agents -Will schedule follow up in nephrology clinic 6. Hypertension : BP acceptable and will continue Metoprolol at 25 mg daily and Hydrochlorothiazide at 25 mg daily 7. Hypophosphatemia: This is likely from Liver disease and not eating proper diet, will start kphos neutral 250 mg TID DVT Prophylaxis: SC heparin, monitor platelets, hold for plt less than 50 Code status.: Full Code
[2020-03-29] MEDS: Sodium Chloride 0.9% 10 ML Syringe FLUSH PRN (21:24)
[2020-03-30] MEDS: Sodium Chloride 0.9% 10 ML Syringe FLUSH PRN (05:31)
[2020-03-30] MEDS: ceFAZolin 1 GM in Premix Bag 1 BAG IV SCH (05:32)
[2020-03-30] MEDS: Heparin Sodium 5,000 Units/ML Vial SUBCUT SCH (05:39)
[2020-03-30 06:25] LABS: ANION GAP 10.3 mEq/L (7-13); CHLORIDE,CL 103 mmol/L (98-107); SODIUM,NA 135 mmol/L (136-145)
--- NOTE | 2020-03-30 09:41 | PCM.DCSUM1 ---
Discharge Summary - Hospital Course Free Text/Narrative:: 39 yo M with PMH of HTN, alcohol abuse who presents with fever, right leg swelling and hyperpigmentation of unknown duration. He was admitted for right leg cellulitis. DVT study was done on right lower ext and no DVT seen. He improved with IV abx. He is being discharged home in stbale condition with plan to follow up with PCP. Diagnosis: Stroke: No - Discharge Data Discharge Date: 03/30/20 Discharge Disposition: Home, Self-Care 01 Condition: Good - Referral to Home Health Primary Care Physician: PCP None - Patient Instructions Diet: Diabetic Diet Activity: As Tolerated Driving: May Drive Today Showering/Bathing: May Shower Notify Provider of: Fever, Increased Pain, Swelling and Redness, Nausea and/or Vomiting - Discharge Plan *PRESCRIPTION DRUG MONITORING PROGRAM REVIEWED*: No *COPY OF PRESCRIPTION DRUG MONITORING REPORT IN PATIENT CHARITY: No Prescriptions/Med Rec: Clindamycin HCl 300 mg PO Q8H 7 Days #21 capsule Potassium Chloride [Klor-Con 10] 40 meq PO BEDTIME 14 Days #28 tab.er Home Medications: Home Meds Metoprolol Succinate [Toprol XL] 25 mg PO DAILY 03/26/20 [History] hydroCHLOROthiazide [Hydrochlorothiazide] 25 mg PO DAILY 03/26/20 [History] Clindamycin HCl 300 mg PO Q8H 7 Days #21 capsule 03/30/20 [Rx] Phosphorus #1 [Neutra-Phos] 250 mg PO TID 3 Days #9 tablet 03/30/20 [Rx] Potassium Chloride [Klor-Con 10] 40 meq PO BEDTIME 14 Days #28 tab.er 03/30/20 [ Rx] Oxygen Therapy Mode: Room Air Referrals: PCP,None [Primary Care Provider] - - Discharge Summary/Plan Comment DC Time >30 min.: Yes Discharge Summary/Plan Comment: Keep follow up appointments Complete antibiotics - Patient Data Vitals - Most Recent: Last Vital Signs Temp 98.9 F 03/30/20 08:04 Pulse 95 03/30/20 08:04 Resp 20 03/30/20 08:04 BP 122/77 03/30/20 08:04 Pulse Ox 100 03/30/20 08:04 Weight - Most Recent: 188 lb 12.8 oz I&O - Last 24 hours: Intake & Output 05/02/1303/30/20 03/30/20 22:59 06:59 14:59 Intake Total 292 50 100 Balance 292 50 100 Lab Results - Last 24 hrs: Laboratory Results - last 24 hr 03/29/20 03/30/20 Range/Units 05:55 05:50 Sodium 135 L (136-145) mmol/L Potassium 3.3 L (3.5-5.1) mmol/L Chloride 103 (98-107) mmol/L Carbon Dioxide 25 (21-32) mmol/L Anion Gap 10.3 (7-13) mEq/L BUN 11 (7-18) mg/dL Creatinine 1.15 (0.70-1.30) mg/dL Est Cr Clr Drug Dosing 79.03 mL/min Estimated GFR (MDRD) > 60 Glucose 107 H (74-99) mg/dL Calcium 7.4 L (8.5-10.1) mg/dL Phosphorus 3.5 4.3 (2.6-4.7) mg/dL [place] Results - Last 24 hrs: Microbiology 03/26/20 14:00 Aerobic Blood Culture - Preliminary Blood - Venous - Lab Draw NO GROWTH AFTER 3 DAYS Anaerobic Blood Culture - Preliminary NO GROWTH AFTER 3 DAYS 03/26/20 13:55 Aerobic Blood Culture - Preliminary Blood - Venous NO GROWTH AFTER 3 DAYS Anaerobic Blood Culture - Preliminary NO GROWTH AFTER 3 DAYS Med Orders - Current: Current Medications Acetaminophen (Tylenol) 650 mg PO Q6H PRN PRN Reason: Pain/Fever Last Admin: 03/29/20 19:56 Dose: 650 mg Heparin Sodium (Porcine) (Heparin Sodium) 5,000 units SUBCUT Q8HR [facility] Last Admin: 03/30/20 05:39 Dose: 5,000 units Hydrochlorothiazide (Hydrochlorothiazide) 25 mg PO DAILY [facility] Last Admin: 03/29/20 08:39 Dose: 25 mg Cefazolin Sodium/Dextrose 1 gm (/ Premix) 50 mls @ 100 mls/hr IV Q8H [facility] Last Infusion: 03/30/20 06:07 Dose: Infused Metoprolol Succinate (Toprol Xl) 25 mg PO DAILY [facility] Last Admin: 03/29/20 08:39 Dose: 25 mg Potassium Chloride (Klor-Con 10) 40 meq PO BEDTIME [facility] Sodium Chloride (Saline Flush) 10 ml FLUSH ASDIRECTED PRN PRN Reason: Keep Vein Open Last Admin: 03/30/20 05:31 Dose: 10 ml Sodium Chloride (Saline Flush) 10 ml FLUSH ASDIRECTED PRN PRN Reason: Keep Vein Open Sodium Phosphate (Neutra-Phos) 250 mg PO TID [facility] Last Admin: 03/29/20 21:30 Dose: 250 mg Discontinued Medications Sodium Chloride (Normal Saline) 1,000 mls @ 250 mls/hr IV .BOLUS ONE Stop: 03/26/20 17:44 Last Admin: 03/26/20 13:50 Dose: 250 mls/hr Vancomycin HCl 1,500 mg/ (Sodium Chloride) 500 mls @ 333.333 mls/hr IV ONETIME ONE Stop: 03/26/20 16:51 Last Admin: 03/26/20 15:42 Dose: 333.333 mls/hr Sodium Chloride (Normal Saline) 1,000 mls @ 100 mls/hr IV ASDIRECTED [facility] Last Infusion: 03/27/20 11:03 Dose: 100 mls/hr Cefazolin Sodium/Dextrose 1 gm (/ Premix) 50 mls @ 100 mls/hr IV Q8H [facility] Last Admin: 03/26/20 18:36 Dose: 100 mls/hr Potassium Chloride 10 meq/ (Premix) 100 mls @ 100 mls/hr IV Q1H [facility] Stop: 03/26/20 21:59 Last Infusion: 03/27/20 05:53 Dose: Infused Potassium Chloride (Klor-Con 10) 40 meq PO ONETIME ONE Stop: 03/26/20 17:57 Last Admin: 03/26/20 18:35 Dose: 40 meq Potassium Chloride (Klor-Con 10) 40 meq PO ONETIME ONE Stop: 03/27/20 00:24 Last Admin: 03/27/20 00:31 Dose: 40 meq Potassium Chloride (Klor-Con 10) 40 meq PO Q4H [facility] Stop: 03/27/20 14:31 Last Admin: 03/27/20 14:39 Dose: 40 meq Potassium Chloride (Klor-Con 10) 40 meq PO ONETIME ONE Stop: 03/28/20 09:40 Last Admin: 03/28/20 10:28 Dose: 40 meq Potassium Chloride (Klor-Con 10) 20 meq PO ONETIME ONE Stop: 03/28/20 13:01 Last Admin: 03/28/20 12:26 Dose: 20 meq Potassium Chloride (Klor-Con 10) 40 meq PO ONETIME ONE Stop: 03/29/20 09:47 Last Admin: 03/29/20 10:50 Dose: 40 meq Potassium Chloride (Klor-Con 10) 20 meq PO ONETIME ONE Stop: 03/29/20 14:01 Last Admin: 03/29/20 13:55 Dose: 20 meq
[2020-03-30] MEDS: Hydrochlorothiazide 25 MG Tab PO SCH (09:52)
[2020-03-30] MEDS: Phosphorus #1 250 MG Tab PO SCH (09:52)
[2020-03-30] MEDS: Metoprolol Succinate 25 MG Tab.ER PO SCH (09:53)
[2020-03-30] MEDS ORDERED: Potassium Chloride 10 MEQ Tab.ER PO SCH (21:00)
== END 2020-03-30 11:30 | disposition home or self-care (01) | DRG 872 ==
LOC: DL.ED 13:10 → DL.MS 15:24
PROVIDERS: ADMIT Hospitalist; ATTEND Hospitalist
DX: A41.9 Sepsis, unspecified organism (principal); L03.115 Cellulitis of right lower limb; F10.10 Alcohol abuse, uncomplicated; K21.9 Gastro-esophageal reflux disease without esophagitis; E87.6 Hypokalemia; K76.9 Liver disease, unspecified; D69.6 Thrombocytopenia, unspecified; I12.9 Hypertensive chronic kidney disease with stage 1 through stage 4 chronic kidney disease, or unspecified chronic kidney disease; H54.7 Unspecified visual loss; B35.3 Tinea pedis; N18.3 Chronic kidney disease, stage 3 (moderate); E83.39 Other disorders of phosphorus metabolism; Z88.6 Allergy status to analgesic agent; Z79.899 Other long term (current) drug therapy
CPT/HCPCS: 36415; 80048; 80053; 80076; 80305-QW; 80307; 81001; 82140; 83605; 83735; 83880; 84100; 84132; 85025; 85027; 85379; 87040; 93971; 96360; 96361; 99285-25; A9270-GY; J0690; J1644; J3370; J3480; J7030; J7040; U0002

== ENCOUNTER 2020-11-26 18:53 | Inpatient (IN) | payer MEDICAID, OTHER ==
[2020-11-26] MEDS ORDERED: Clindamycin Phosphate 900 MG in Sodium Chloride 0.9% 100 ML IV ONE (19:15)
[2020-11-26] MEDS ORDERED: Acetaminophen 325 MG Tab PO ONE (19:15)
[2020-11-26] MEDS ORDERED: Sodium Chloride 0.9% 1,000 ML IV ONE (19:15)
--- NOTE | 2020-11-26 19:34 | EDM.PDOC ---
ED HPI GENERAL MEDICAL PROBLEM - General Chief Complaint: Possible Sepsis Stated Complaint: RIGHT LEG SWOLLEN AND BLACK, DRAINING Time Seen by Provider: 11/26/20 19:28 Source of Information: Reports: Patient, Old Records History Limitations: Reports: No Limitations - History of Present Illness INITIAL COMMENTS - FREE TEXT/NARRATIVE: pt states sister called the ambulance to bring him here for his swollen leg which he had past few months. states was here for this but records showed it wasn't for its present appearance. explained to pt the necessity of self monitoring if his leg's appearance starts to change and to have it rechecked. not sure if pt understood except for show of displeasure for being told. 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 Right Knee Pain Score (Numeric/FACES): 7 - Related Data Allergies Allergy/AdvReac Type Severity Reaction Status Date / Time aspirin Allergy Swelling Verified 11/26/20 19:24 Home Meds: Home Meds Metoprolol Succinate [Toprol XL] 25 mg PO DAILY 03/26/20 [History] hydroCHLOROthiazide [Hydrochlorothiazide] 25 mg PO DAILY 03/26/20 [History] Potassium Chloride [Klor-Con 10] 40 meq PO BEDTIME 14 Days #28 tab.er 03/30/20 [Rx] Naproxen Sodium [Aleve] 220 mg PO ASDIRECTED 11/26/20 [History] Phosphorus #1 [Neutra-Phos] 250 mg PO DAILY 11/26/20 [History] Past Medical History HEENT History: Reports: Other (See Below) Other HEENT History: left lazy eye Cardiovascular History: Reports: Hypertension Respiratory History: Reports: None Gastrointestinal History: Reports: GERD Genitourinary History: Reports: None Musculoskeletal History: Reports: None Neurological History: Reports: None Psychiatric History: Reports: None Endocrine/Metabolic History: Reports: None Hematologic History: Reports: None Immunologic History: Reports: None Oncologic (Cancer) History: Reports: None Dermatologic History: Reports: Cellulitis, Other (See Below) Other Dermatologic History: fungus on feet and fingernails. - Infectious Disease History Infectious Disease History: Reports: None - Past Surgical History Head Surgeries/Procedures: Reports: None Social & Family History - Family History Family Medical History: No Pertinent Family History - Caffeine Use Caffeine Use: Reports: Coffee, Soda ED ROS GENERAL - Review of Systems Review Of Systems: Comprehensive ROS is negative, except as noted in HPI. ED EXAM, GENERAL - Physical Exam Exam: See Below Exam Limited By: No Limitations General Appearance: Alert, WD/WN, Mild Distress, Other (discomfort) Ears: Hearing Grossly Normal Throat/Mouth: Normal Voice, No Airway Compromise Head: Atraumatic Neck: Non-Tender, Full Range of Motion Respiratory/Chest: No Respiratory Distress Cardiovascular: Regular Rate, Rhythm GI/Abdominal: Soft, Non-Tender (Male) Exam: Deferred Rectal (Males) Exam: Deferred Extremities: Other (right leg 3+ edema, crusty, slight weepage at lateral malleolus, colour ashened but pedal pulse present.) Neurological: Alert, Oriented, Normal Cognition, No Motor/Sensory Deficits Psychiatric: Flat Affect Skin Exam: Warm, Dry, Normal Color Lymphatic: No Adenopathy Course - Vital Signs Last Recorded V/S: Last Vital Signs Temp 39.0 C H 11/26/20 19:07 Pulse 129 H 11/26/20 19:07 Resp 24 H 11/26/20 19:07 BP 121/61 11/26/20 19:07 Pulse Ox 97 11/26/20 19:07 - Orders/Labs/Meds Orders: Active Orders 24 hr Category Date Time Status CULTURE BLOOD [BC] Stat Lab 11/26/20 19:20 Received CULTURE WOUND [RM] Stat Lab 11/26/20 19:40 Received UA W/MICROSCOPIC [URIN] Routine Lab 11/26/20 19:56 Results Labs: Laboratory Tests 11/26/20 11/26/20 11/26/20 Range/Units 19:20 19:20 19:20 WBC 6.9 (5.0-10.0) 10^3/uL RBC 3.14 L (4.6-6.2) 10^6/uL Hgb 10.7 L (14.0-18.0) g/dL Hct 30.4 L (40.0-54.0) % MCV 96.8 (80-100) fL MCH 34.1 H (27.0-34.0) pg MCHC 35.2 H (33.0-35.0) g/dL Plt Count 109 L (150-450) 10^3/uL Neut % (Auto) 62.9 (42.2-75.2) % Lymph % (Auto) 20.6 (20.5-50.1) % [place] % (Auto) 9.2 H (2-8) % Eos % (Auto) 6.9 H (1.0-3.0) % Baso % (Auto) 0.4 (0.0-1.0) % Sodium 134 L (136-145) mmol/L Potassium 2.8 L (3.5-5.1) mmol/L Chloride 101 (98-107) mmol/L Carbon Dioxide 24 (21-32) mmol/L Anion Gap 11.8 (7-13) mEq/L BUN 8 (7-18) mg/dL Creatinine 1.13 (0.70-1.30) mg/dL Est Cr Clr Drug Dosing 71.31 mL/min Estimated GFR (MDRD) > 60 BUN/Creatinine Ratio 7.1 (No establ ref range) Glucose 166 H (74-99) mg/dL Lactic Acid 2.9 H* (0.4-2.0) mmol/L Calcium 7.2 L (8.5-10.1) mg/dL Total Bilirubin 2.4 H (0.2-1.0) mg/dL AST 65 H (15-37) U/L ALT 29 (16-63) U/L Alkaline Phosphatase 201 H (46-116) U/L Total Protein 9.1 H (6.4-8.2) g/dL Albumin 1.4 L (3.4-5.0) g/dL Globulin 7.7 Albumin/Globulin Ratio 0.18 Urine Color (YELLOW) Urine Appearance (CLEAR) Urine pH (5.0-9.0) Ur Specific [place] (1.005-1.030) Urine Protein (NEGATIVE) Urine Glucose (UA) (NEGATIVE) Urine Ketones (NEGATIVE) Urine Occult Blood (NEGATIVE) Urine Nitrite (NEGATIVE) Urine Bilirubin (NEGATIVE) Urine Urobilinogen (0.2-1.0) mg/dL Ur Leukocyte Esterase (NEGATIVE) Urine Opiates Screen (NEGATIVE) Ur Oxycodone Screen (NEGATIVE) Urine Methadone Screen (NEGATIVE) Ur Barbiturates Screen (NEGATIVE) U Tricyclic Antidepress (NEGATIVE) Ur Phencyclidine Scrn (NEGATIVE) Ur Amphetamine Screen (NEGATIVE) U Methamphetamines Scrn (NEGATIVE) Urine MDMA Screen (NEGATIVE) U Benzodiazepines Scrn (NEGATIVE) Urine Cocaine Screen (NEGATIVE) U Marijuana (THC) Screen (NEGATIVE) SARS-CoV-2 RNA (DANN) (NEGATIVE) 11/26/20 11/26/20 11/26/20 Range/Units 19:56 19:56 19:56 WBC (5.0-10.0) 10^3/uL RBC (4.6-6.2) 10^6/uL Hgb (14.0-18.0) g/dL Hct (40.0-54.0) % MCV (80-100) fL MCH (27.0-34.0) pg MCHC (33.0-35.0) g/dL Plt Count (150-450) 10^3/uL Neut % (Auto) (42.2-75.2) % Lymph % (Auto) (20.5-50.1) % [place] % (Auto) (2-8) % Eos % (Auto) (1.0-3.0) % Baso % (Auto) (0.0-1.0) % Sodium (136-145) mmol/L Potassium (3.5-5.1) mmol/L Chloride (98-107) mmol/L Carbon Dioxide (21-32) mmol/L Anion Gap (7-13) mEq/L BUN (7-18) mg/dL Creatinine (0.70-1.30) mg/dL Est Cr Clr Drug Dosing mL/min Estimated GFR (MDRD) BUN/Creatinine Ratio (No establ ref range) Glucose (74-99) mg/dL Lactic Acid (0.4-2.0) mmol/L Calcium (8.5-10.1) mg/dL Total Bilirubin (0.2-1.0) mg/dL AST (15-37) U/L ALT (16-63) U/L Alkaline Phosphatase (46-116) U/L Total Protein (6.4-8.2) g/dL Albumin (3.4-5.0) g/dL Globulin Albumin/Globulin Ratio Urine Color Dark yellow (YELLOW) Urine Appearance Slightly cloudy (CLEAR) Urine pH 7.0 (5.0-9.0) Ur Specific [place] 1.020 (1.005-1.030) Urine Protein 100 H (NEGATIVE) Urine Glucose (UA) Negative (NEGATIVE) Urine Ketones Negative (NEGATIVE) Urine Occult Blood Large H (NEGATIVE) Urine Nitrite Negative (NEGATIVE) Urine Bilirubin Negative (NEGATIVE) Urine Urobilinogen >=8.0 H (0.2-1.0) mg/dL Ur Leukocyte Esterase Negative (NEGATIVE) Urine Opiates Screen Negative (NEGATIVE) Ur Oxycodone Screen Negative (NEGATIVE) Urine Methadone Screen Negative (NEGATIVE) Ur Barbiturates Screen Negative (NEGATIVE) U Tricyclic Antidepress Negative (NEGATIVE) Ur Phencyclidine Scrn Negative (NEGATIVE) Ur Amphetamine Screen Negative (NEGATIVE) U Methamphetamines Scrn Negative (NEGATIVE) Urine MDMA Screen Negative (NEGATIVE) U Benzodiazepines Scrn Negative (NEGATIVE) Urine Cocaine Screen Negative (NEGATIVE) U Marijuana (THC) Screen Positive H (NEGATIVE) SARS-CoV-2 RNA (DANN) Negative (NEGATIVE) Meds: Medications Discontinued Medications Generic Name Dose Route Start Last Admin Trade Name Freq PRN Reason Stop Dose Admin Acetaminophen 650 mg 11/26/20 19:15 11/26/20 20:13 Tylenol PO 11/26/20 19:16 650 mg NOW ONE Administration Clindamycin Phosphate 900 mg/ 106 mls @ 200 mls/hr 11/26/20 19:15 11/26/20 20:04 Sodium Chloride IV 11/26/20 19:46 200 mls/hr ONETIME ONE Administration Sodium Chloride 1,000 mls @ 999 mls/hr 11/26/20 19:15 11/26/20 20:04 Normal Saline IV 11/26/20 20:15 999 mls/hr .BOLUS ONE Administration - Re-Assessments/Exams Free Text/Narrative Re-Assessment/Exam: 11/26/20 20:[address] Bautista who kindly admitted pt. Departure - Departure Time of Disposition: 20:25 Disposition: Admitted As Inpatient 64 Condition: Fair Clinical Impression: Cellulitis Qualifiers: Site of cellulitis: extremity Site of cellulitis of extremity: lower extremity Laterality: right Qualified Code(s): L03.115 - Cellulitis of right lower limb - Discharge Information Forms: ED Department Discharge Sepsis Event Note (ED) - Evaluation Sepsis Screening Result: Possible Sepsis Risk - Focused Exam Vital Signs: Vital Signs Temp Pulse Resp BP Pulse Ox 11/26/20 19:07 39.0 C H 129 H 24 H 121/61 97 - My Orders Last 24 Hours: My Active Orders 11/26/20 19:20 CULTURE BLOOD [BC] Stat 11/26/20 19:40 CULTURE WOUND [RM] Stat 11/26/20 19:56 UA W/MICROSCOPIC [URIN] Routine - Assessment/Plan Last 24 Hours: My Active Orders 11/26/20 19:20 CULTURE BLOOD [BC] Stat 11/26/20 19:40 CULTURE WOUND [RM] Stat 11/26/20 19:56 UA W/MICROSCOPIC [URIN] Routine
[2020-11-26 19:47] LABS: ANION GAP 11.8 mEq/L (7-13); CHLORIDE,CL 101 mmol/L (98-107); SODIUM,NA 134 mmol/L (136-145)
--- NOTE | 2020-11-26 20:19 | CT ---
PROCEDURE INFORMATION: Exam: CT Right Lower Extremity Without Contrast; Lower Leg Exam date and time: 11/26/2020 7:55 PM Age: 40 years old Clinical indication: Swelling, leg or foot; Additional info: R/O osteoarthritis TECHNIQUE: Imaging protocol: CT of the Right lower extremity without contrast was performed. Exam focused on the lower leg. Radiation optimization: All CT scans at this facility use at least one of these dose optimization techniques: automated exposure control; mA and/or kV adjustment per patient size (includes targeted exams where dose is matched to clinical indication); or iterative reconstruction. COMPARISON: No relevant prior studies available. FINDINGS: Bones/joints: Normal. No acute fracture or dislocation. Soft tissues: There is extensive edema throughout visualized portion of right lower extremity.. No soft tissue gas. No organized fluid collection IMPRESSION: 1. No significant osteoarthritis. No acute osseous process 2. Nonspecific extensive edema throughout right lower extremity.
[2020-11-26] MEDS ORDERED: Ondansetron 4 MG Tab.DIS PO PRN (21:15)
[2020-11-26] MEDS ORDERED: Docusate Sodium 100 MG Cap PO PRN (21:15)
[2020-11-26] MEDS ORDERED: Acetaminophen/oxyCODONE 325-5 MG Tab PO PRN (21:15)
[2020-11-26] MEDS: NS + KCl 20mEq/L 1,000 ML IV SCH (21:46)
[2020-11-26] MEDS: Enoxaparin 40 MG/0.4 ML Syringe SUBCUT SCH (21:46)
[2020-11-26] MEDS: ceFAZolin 1 GM in Premix Bag 1 BAG IV SCH (21:50)
--- NOTE | 2020-11-26 22:58 | HP ---
CHIEF COMPLAINT: Right leg swelling. HISTORY OF PRESENT ILLNESS: The patient is a 40-year-old male who was admitted through the emergency room because the patient was brought in by ambulance because his right leg has been more swollen lately and although the patient mentioned that he had these problems for months, but again he mentioned that he has more swelling of the right leg, and there is some oozing. He complains of some pain in the right leg, but he denies any fever, chills, chest pain, shortness of breath, headache, abdominal pain, nor any other complaints. Because of the right leg swelling and signs of cellulitis, the patient was admitted for further evaluation and management. PAST MEDICAL HISTORY: Remarkable for cellulitis of the right leg. He was admitted here in 02/2020. He has hypertension, hypokalemia, and gastroesophageal reflux. FAMILY HISTORY: Noncontributory. SOCIAL HISTORY: The patient denies any alcohol abuse and non-cigarette smoker, but smokes marijuana occasionally. REVIEW OF SYSTEMS: As in HPI. The rest of the review of systems is negative. HOME MEDICATIONS: Metoprolol, hydrochlorothiazide, potassium chloride, naproxen, and Neutra-Phos. ALLERGIES: Aspirin. PHYSICAL EXAMINATION: General: The patient is very pleasant. He is alert and oriented, not in any acute distress. Vital Signs: Blood pressure is 121/61, pulse of 129, respirations of 24, and temperature of 39. SHEENT: Normocephalic. There are pink palpebral conjunctivae. Sclerae anicteric. Neck: No JVD. No lymphadenopathy. Heart: Regular rate and rhythm. Normal S1 and S2. No gallops. No rubs. Lungs: Equal bilaterally. No crackles, no wheezing. Abdomen: Soft, nontender, bowel sounds positive. Extremities: Remarkable for the hyperpigmentation and ashen discoloration of the right leg with swelling and warmth, and left leg is unremarkable. LABORATORY DATA: Lab workup, CBC; WBC 6.9, hemoglobin is 10.7, hematocrit is 30.4, and platelets 109. Comp panel remarkable for sodium of 134, potassium of 2.8, glucose is 166, total bilirubin of 2.4, calcium of 7.2, alkaline phosphatase 201, total protein of 9.1, albumin is 1.4. The rest of the panel unremarkable. Lactic acid is 2.9. CAT scan of the lower extremity is negative for any acute osseous process and there is nonspecific extensive edema throughout the right lower extremity. ADMITTING DIAGNOSES: 1. Right leg cellulitis. 2. Hypokalemia. 3. Hypertension. TREATMENT PLAN: The patient is going to be admitted to acute care general medicine floor. He will be empirically started on IV antibiotics for cellulitis. Blood cultures were sent. He will be placed on DVT prophylaxis and we will also order for an ultrasound of the right leg to rule out any signs of DVT. Potassium will also be repleted intravenously as well as orally. The rest of the management is as necessary, and the patient is a full code. [facility] /[id number]
[2020-11-27] MEDS: ceFAZolin 1 GM in Premix Bag 1 BAG IV SCH ×3 (05:39→21:23)
[2020-11-27 07:04] LABS: CHLORIDE,CL 103 mmol/L (98-107); SODIUM,NA 136 mmol/L (136-145)
[2020-11-27] MEDS ORDERED: Potassium Chloride 10 MEQ Tab.ER PO ONE (08:21)
[2020-11-27] MEDS: Metoprolol Succinate 25 MG Tab.ER PO SCH (09:09)
[2020-11-27] MEDS: Hydrochlorothiazide 25 MG Tab PO SCH (09:10)
[2020-11-27] MEDS: Enoxaparin 40 MG/0.4 ML Syringe SUBCUT SCH (09:10)
--- NOTE | 2020-11-27 10:49 | PN ---
DATE: 11/27/2020 SUBJECTIVE: The patient this morning is feeling slightly better and the pain on the right leg is slightly better. The patient denies any other ongoing complaints. Denies any chest pain, shortness of breath, abdominal pain. LABORATORY DATA: Lab workup this morning, CBC: WBC is 5.9, hemoglobin is 11.1, hematocrit is 32, platelet is 99. Chem-6: Potassium is 3, anion gap of 15. The rest of the panel unremarkable. OBJECTIVE: Vital Signs: Blood pressure is 130/71, pulse of 118, respiration of 16, temperature of 99.2, saturation is 100% on room air. Heart: Regular rate and rhythm. Normal S1 and S2. No gallops. No rubs. Lungs: Equal bilaterally. No crackles. No wheezing. Abdomen: Soft, nontender. Bowel sounds positive. Extremities: Still remarkable for the swelling and discoloration (hyperpigmentation) and some weeping on the right lower leg. MEDICATIONS: Reviewed. PLAN: We will give some extra dose of potassium today and continue with the daily potassium supplementation and continue with his current IV antibiotics that is the Ancef as well as vancomycin. We will recheck a basic metabolic panel in a.m. [facility] /[id number]
--- NOTE | 2020-11-27 11:07 | US ---
PROCEDURE INFORMATION: Exam: US Duplex Right Lower Extremity Veins, Limited Exam date and time: 11/27/2020 10:18 AM Age: 40 years old Clinical indication: Swelling (edema) of limb; Upper extremity, right TECHNIQUE: Imaging protocol: Real-time Duplex ultrasound of the Right Lower Extremity with 2-D estrella scale, color Doppler flow and spectral waveform analysis with image documentation. Limited exam was focused on the right lower extremity veins. COMPARISON: No relevant prior studies available. FINDINGS: Right deep veins: Unremarkable. The common femoral, femoral, proximal profunda femoral and popliteal veins are patent without thrombus. Normal Doppler waveforms. Normal compressibility and/or augmentation response. Right superficial veins: Unremarkable. Saphenofemoral junction is patent without thrombus. Soft tissues: Right groin adenopathy with largest lymph node measuring 4.4 cm. 4.4 cm lymph node demonstrates moderate central Doppler vascularity with marked cortical thickening. There is moderate subcutaneous edema. IMPRESSION: 1. No evidence of deep vein thrombosis. 2. Right groin dominant adenopathy with largest lymph node measuring 4.4 cm. Further clinical assessment t required to correlate with distinguish reactive adenitis versus pathological process. 3. Subcutaneous edema. Clinically correlate for cellulitis.
[2020-11-27] MEDS: NS + KCl 20mEq/L 1,000 ML IV SCH (15:32)
--- NOTE | 2020-11-27 17:05 | CT ---
PROCEDURE INFORMATION: Exam: CT Abdomen And Pelvis Without Contrast Exam date and time: 11/27/2020 4:03 PM Age: 40 years old Clinical indication: Other: Pain; Additional info: Abnormal venous doppler ultrasound TECHNIQUE: Imaging protocol: Computed tomography of the abdomen and pelvis without contrast. Radiation optimization: All CT scans at this facility use at least one of these dose optimization techniques: automated exposure control; mA and/or kV adjustment per patient size (includes targeted exams where dose is matched to clinical indication); or iterative reconstruction. COMPARISON: No relevant prior studies available. FINDINGS: Lungs: Minimal right anterior and posterior mild basilar atelectasis. Multiple bilateral small axillary soft tissue aggregates with largest left axillary lymph node measuring 16 mm. Questionable filling defects within lower lobe subsegmental vessels versus technique. Heart: No cardiomegaly. No pericardial effusion. Mediastinal space: Paraesophageal varices. Liver: Hepatic sagittal length 11 cm. Small liver with irregular hepatic contour Gallbladder and bile ducts: Moderately distended No calcified stones. No ductal dilation. Pancreas: Normal. No ductal dilation. Spleen: Spleen sagittal length 12 cm compatible with splenomegaly. Adrenal glands: Normal. No mass. Kidneys and ureters: Normal. No hydronephrosis. Stomach and bowel: Unremarkable. No obstruction. No mucosal thickening. Multiple oval radiopaque oval densities in stomach and bowel consider compatible with oral ingestion of capsules or medication. Appendix: Appendix not visualized. Intraperitoneal space: Moderate volume ascites surrounding the liver and spleen extending to bilateral pericolic gutters and central pelvis. Vasculature: No aortic aneurysm. Central epigastric varices. Left splenic varices. Recannulization of the umbilical vein. Dilated portal vein. Dilated inferior vena cava. Lymph nodes: Multiple bilateral axillary small lymph nodes. Mild periaortic lymph nodes. Urinary bladder: Moderate distention without filling defects or wall thickening. Reproductive: Unremarkable as visualized. Right scrotal hydrocele Bones/joints: Severe L5-S1 degenerative disc disease Grade II L5 spondylolisthesis and bilateral spondylolysis. Severe bilateral foraminal stenosis. Soft tissues: Bilateral gynecomastia. Bilateral iliac, femoral and inguinal adenopathy, predominates in the inguinal region. Dominant right inguinal lymph node with maximal transverse diameter of 4.0 cm. Right thigh proximal subcutaneous edema may reflect infection. IMPRESSION: 1. Cirrhotic liver disease, splenomegaly, varices and moderate abdominal ascites compatible with portal hypertension. 2. Grade 2 L5 spondylolisthesis and bilateral spondylolysis. Severe bilateral foraminal stenosis. 3. Questionable filling bilateral lower lobe subsegmental pulmonary vessels. Without IV contrast findings may be more apparent than real. If shortness of breath or chest pain recommend CT chest with IV contrast to exclude pulmonary embolic disease. 4. Dominant bilateral inguinal adenopathy predominating on the right with maximal measurement of 4 cm. Bilateral mild iliac and femoral adenopathy. 5. Right scrotal hydrocele. 6. Right fluid filled inguinal hernia continuing into dominant right scrotal hydrocele.
[2020-11-27] MEDS ORDERED: Vancomycin 1.25 GM SDV ONE (20:28)
[2020-11-27] MEDS: Potassium Chloride 10 MEQ Tab.ER PO SCH (21:26)
[2020-11-27] MEDS: Acetaminophen 325 MG Tab PO PRN (21:33)
[2020-11-28] MEDS: ceFAZolin 1 GM in Premix Bag 1 BAG IV SCH ×3 (05:35→21:15)
[2020-11-28 07:07] LABS: ANION GAP 12.6 mEq/L (7-13); CHLORIDE,CL 104 mmol/L (98-107); SODIUM,NA 136 mmol/L (136-145)
[2020-11-28] MEDS: NS + KCl 20mEq/L 1,000 ML IV SCH (08:02)
[2020-11-28] MEDS: Hydrochlorothiazide 25 MG Tab PO SCH (09:06)
[2020-11-28] MEDS: Enoxaparin 40 MG/0.4 ML Syringe SUBCUT SCH (09:06)
[2020-11-28] MEDS: Metoprolol Succinate 25 MG Tab.ER PO SCH (09:06)
[2020-11-28] MEDS: Potassium Chloride 10 MEQ Tab.ER PO SCH (21:17)
[2020-11-29] MEDS: Acetaminophen 325 MG Tab PO PRN ×2 (01:12→06:16)
[2020-11-29] MEDS: ceFAZolin 1 GM in Premix Bag 1 BAG IV SCH (05:41)
[2020-11-29] MEDS: Enoxaparin 40 MG/0.4 ML Syringe SUBCUT SCH (08:57)
[2020-11-29] MEDS: Metoprolol Succinate 25 MG Tab.ER PO SCH (08:58)
[2020-11-29] MEDS: Hydrochlorothiazide 25 MG Tab PO SCH (08:58)
[2020-11-29] MEDS: Clindamycin HCl 150 MG Cap PO SCH ×2 (10:22→17:54)
[2020-11-29] MEDS: Potassium Chloride 10 MEQ Tab.ER PO SCH (20:21)
[2020-11-30] MEDS: Clindamycin HCl 150 MG Cap PO SCH ×2 (01:51→09:30)
--- NOTE | 2020-11-30 07:37 | PN ---
DATE: 11/28/2020 SUBJECTIVE: The patient continues to do well, and the patient mentioned that the right leg feels much better, and he is able to bear weight and walk with it. He had an ultrasound of the right leg, and this did not show any DVT, but there is right groin adenopathy, which is 4.4 cm in size. We did a CAT scan of the abdomen and pelvis, and it showed cirrhotic liver disease, splenomegaly, varices, and moderate abdominal ascites compatible with portal hypertension. There are no pelvic masses noted. Again noted is the bilateral inguinal adenopathy predominating on the right. He has also right scrotal hydrocele and right fluid-filled inguinal hernia. This was discussed with the patient. OBJECTIVE: Vital Signs: Blood pressure is 128/79, pulse of 91, respirations 20, temperature of 98.6, and saturation is 100%. Heart: Regular rate and rhythm. Normal S1 and S2. No gallops. No rubs. Lungs: Equal bilaterally. No crackles, no wheezing. Abdomen: Soft, nontender. Bowel sounds positive. Extremities: Remarkable for the swelling, discoloration, and hyperpigmentation of the right lower extremity. MEDICATIONS: Reviewed. LABORATORY DATA: Lab workup this morning, chem-6 unremarkable and potassium level is 3.6, which is now within normal limits. PLAN: We will continue with his present IV antibiotics for the cellulitis of the right leg, and we will continue with the rest of his home medication. We will discontinue his IV fluids as his intake has been good. [facility] /[id number]
--- NOTE | 2020-11-30 07:55 | PN ---
DATE: 11/29/2020 SUBJECTIVE: The patient continues to do well. The patient denies any ongoing complaints and the patient has been ambulating. Denies any fever, chills, chest pain, shortness of breath. He still has the swelling on the right leg, but this is improving, and the patient's pain is also improving on the right leg. Wound culture showed Streptococcus dysgalactiae and Staphylococcus aureus and this is susceptible to azithromycin, ciprofloxacin, clindamycin, and vancomycin as well as trimethoprim/sulfamethoxazole and levofloxacin. Blood cultures have been negative. OBJECTIVE: Vital Signs: Blood pressure is 121/66, pulse of 89, respirations of 20, temperature of 98.8, saturation is 100%. Heart: Regular rate and rhythm. Normal S1 and S2. No gallops. No rubs. Lungs: Equal bilaterally. No crackles. No wheezing. Abdomen: Soft, nontender. Bowel sounds positive. Extremities: Still remarkable for the swelling and hyperpigmentation on the right leg. PLAN: I am going to discontinue the Ancef and vancomycin and we will switch him to oral antibiotics. [facility] /[id number]
[2020-11-30] MEDS: Hydrochlorothiazide 25 MG Tab PO SCH (08:50)
[2020-11-30] MEDS: Metoprolol Succinate 25 MG Tab.ER PO SCH (08:50)
[2020-11-30] MEDS: Enoxaparin 40 MG/0.4 ML Syringe SUBCUT SCH (08:51)
--- NOTE | 2020-11-30 16:06 | PN ---
DATE: 11/30/2020 SUBJECTIVE: The patient continues to do well and he is feeling much better regarding his right leg, and he is able to ambulate and walk with the right leg, and the pain has improved significantly. Still has the swelling and discoloration, but this has been a baseline. He denies any fever, chills, chest pain, shortness of breath, nor any other complaints. OBJECTIVE: Vital Signs: Blood pressure is 117/66, pulse 98, respirations 20, temperature of 98.8, saturation is 98% on room air. Heart: Regular rate and rhythm. Normal S1 and S2. No gallops. No rubs. Lungs: Equal bilaterally. No crackles. No wheezing. Abdomen: Moderately obese, soft, nontender. Bowel sounds positive. Extremities: Still remarkable for the swelling, discoloration, and hyperpigmentation of the right leg. Left leg unremarkable. PLAN: We will discharge the patient home today, and we will continue with oral antibiotics and clindamycin for the next 7 days. The patient was also advised to use support stockings or Mat wrap on his right leg, and he is going to follow up at [facility] in about a week. [facility] /[id number]
--- NOTE | 2020-11-30 20:17 | DISCH ---
FINAL DIAGNOSES: 1. Right leg cellulitis. 2. Hypokalemia. 3. Hypertension. 4. Liver cirrhosis. BRIEF HISTORY OF PRESENT ILLNESS: The patient is a 40-year-old male who was admitted through the emergency room because of pain and swelling and discoloration of the right leg. PERTINENT LAB, X-RAY, AND OTHER TESTS: On admission, CBC; WBC is 6.9, hemoglobin is 10.7, hematocrit is 30.4, platelets 109. Comp panel remarkable for sodium of 134 and potassium of 2.8. CAT scan of the lower extremities negative for any acute osseous process and there is extensive edema throughout the right lower extremity. An ultrasound of the right lower extremity is negative for any acute DVT, but there is dominant adenopathy on the right groin measuring 4.4 cm, which is most likely reactive. CAT scan of the abdomen and pelvis showed signs of liver cirrhosis (cirrhotic liver disease), splenomegaly, varices, and moderate abdominal ascites compatible with portal hypertension. There is also grade 2 L5 spondylolisthesis and questionable filling bilateral lower lobe segmental pulmonary vessel and there is right scrotal hydrocele. Blood cultures negative. Wound cultures showed Streptococcus dysgalactiae and Staphylococcus aureus. Lab workup, 11/28/2020, chem-6; sodium 136, potassium is 3.6, and the rest of the panel unremarkable. HOSPITAL COURSE: The patient was admitted to general medicine floor. He was empirically started on IV antibiotics with vancomycin and Ancef and was also placed on DVT prophylaxis and an ultrasound of the right leg was done to rule out DVT and this came back negative for DVT. Also, a CAT scan of the abdomen and pelvis was done to rule out any pelvic masses causing the swelling on the right leg, and this came back negative for any masses, but showed signs of liver cirrhosis. Potassium was also repleted orally and prior to discharge, potassium level was back to within normal limits. The rest of the hospital course was unremarkable. The patient is feeling much better and there was some improvement in the swelling of the right leg as well as the pain also improved, and the patient was subsequently discharged. CONDITION ON DISCHARGE: Improved. The patient is to continue with oral antibiotic, clindamycin for the next 7 days and we will also resume on his home medication. He is going to follow up in [facility] in 1 week. DISCHARGE MEDICATIONS: Clindamycin 300 mg 3 times a day for the next 7 days and the patient is going to be also resumed on his metoprolol and hydrochlorothiazide and potassium chloride as at home. We will recheck basic metabolic panel and follow up in [facility]. MODL /[id number]
== END 2020-11-30 10:00 | disposition home or self-care (01) | DRG 603 ==
LOC: DL.ED 18:53 → DL.MS 20:26
PROVIDERS: ADMIT Internal Medicine; ATTEND Internal Medicine
DX: L03.115 Cellulitis of right lower limb (principal); R18.8 Other ascites; E87.6 Hypokalemia; I10 Essential (primary) hypertension; K74.60 Unspecified cirrhosis of liver; B95.4 Other streptococcus as the cause of diseases classified elsewhere; B95.61 Methicillin susceptible Staphylococcus aureus infection as the cause of diseases classified elsewhere; K21.9 Gastro-esophageal reflux disease without esophagitis; N43.3 Hydrocele, unspecified; K40.90 Unilateral inguinal hernia, without obstruction or gangrene, not specified as recurrent; Z20.822 Contact with and (suspected) exposure to COVID-19; Z79.899 Other long term (current) drug therapy; Z88.6 Allergy status to analgesic agent
CPT/HCPCS: 36415; 73700; 74176; 80048; 80053; 80202; 80305-QW; 81001; 83605; 83735; 85025; 87040; 87070; 87077; 87186; 93971; 96365; 99284; 99284-25; A9270-GY; J0690; J1650; J3370; J3480; J3490; J7030; J7050; U0002

== ENCOUNTER 2021-02-23 16:46 | Emergency (ER) | payer MEDICARE, MEDICAID ==
[2021-02-23] MEDS ORDERED: Sodium Chloride 0.9% 1,000 ML IV ONE ×2 (17:32→18:12)
[2021-02-23] MEDS ORDERED: Acetaminophen 325 MG Tab PO ONE (17:32)
[2021-02-23] MEDS ORDERED: Acetaminophen 325 MG Tab ONE (17:34)
--- NOTE | 2021-02-23 17:35 | EDM.PDOC ---
ED HPI GENERAL MEDICAL PROBLEM - General Chief Complaint: General Stated Complaint: TIRED, PATTASIUM Time Seen by Provider: 02/23/21 17:34 Source of Information: Reports: Patient, RN, RN Notes Reviewed History Limitations: Reports: No Limitations - History of Present Illness INITIAL COMMENTS - FREE TEXT/NARRATIVE: Patient is a 40-year-old male who presents to ER with complaint of fever, states his potassium is probably low. Patient is a poor historian, and very vague with symptoms. Patient states he began having a fever this morning, admits to chills, nausea, vomiting, and diarrhea. Patient does complain of increased shortness of breath, denies any chest pains. Patient states his large rounded belly has been there for some time. Patient states he has been told that his liver is not functioning well. Also has a large, dark-colored right leg, severe edema. Patient states he has had a cough, expectorating green sputum. Onset: Gradual Generalized Pain Score (Numeric/FACES): 5 - Related Data Allergies Allergy/AdvReac Type Severity Reaction Status Date / Time aspirin Allergy Swelling Verified 02/23/21 17:12 Home Meds: Home Meds Metoprolol Succinate [Toprol XL] 25 mg PO DAILY 03/26/20 [History] hydroCHLOROthiazide [Hydrochlorothiazide] 25 mg PO DAILY 03/26/20 [History] Potassium Chloride [Klor-Con 10] 40 meq PO BEDTIME 14 Days #28 tab.er 03/30/20 [Rx] Naproxen Sodium [Aleve] 220 mg PO ASDIRECTED 11/26/20 [History] clindamycin HCL [Clindamycin HCl] 300 mg PO TID 7 Days #21 capsule 11/30/20 [Rx] Past Medical History HEENT History: Reports: Other (See Below) Other HEENT History: left lazy eye Cardiovascular History: Reports: Hypertension Respiratory History: Reports: None Gastrointestinal History: Reports: GERD Genitourinary History: Reports: None Musculoskeletal History: Reports: None Neurological History: Reports: None Psychiatric History: Reports: None Endocrine/Metabolic History: Reports: None Hematologic History: Reports: None Immunologic History: Reports: None Oncologic (Cancer) History: Reports: None Dermatologic History: Reports: Cellulitis, Other (See Below) Other Dermatologic History: fungus on feet and fingernails. - Infectious Disease History Infectious Disease History: Reports: None - Past Surgical History Head Surgeries/Procedures: Reports: None Social & Family History - Family History Family Medical History: No Pertinent Family History - Tobacco Use Tobacco Use Status *Q: Never Tobacco User Second Hand Smoke Exposure: No - Caffeine Use Caffeine Use: Reports: None - Recreational Drug Use Recreational Drug Use: No ED ROS GENERAL - Review of Systems Review Of Systems: Comprehensive ROS is negative, except as noted in HPI. ED EXAM, GENERAL - Physical Exam Exam: See Below Exam Limited By: No Limitations General Appearance: Alert, WD/WN, Mild Distress Eye Exam: Bilateral Eye: EOMI, Other (scleral icterus) Ears: Normal External Exam, Hearing Grossly Normal Nose: Normal Inspection Throat/Mouth: Normal Inspection, Normal Voice, No Airway Compromise Head: Atraumatic, Normocephalic Neck: Normal Inspection, Supple, Non-Tender, Full Range of Motion Respiratory/Chest: No Respiratory Distress, No Accessory Muscle Use, Chest Non- Tender, Decreased Breath Sounds Cardiovascular: Normal Peripheral Pulses, Regular Rate, Rhythm, No Gallop, No JVD, No Murmur, No Rub, Tachycardia Peripheral Pulses: 1+: Dorsalis Pedis (L), Dorsalis Pedis (R), 2+: Radial (L), Radial (R) GI/Abdominal: Normal Bowel Sounds, Distended, Rigid (Male) Exam: Deferred Rectal (Males) Exam: Deferred Back Exam: Normal Inspection, Decreased Range of Motion Extremities: Pedal Edema (bilateral, right > left, +3-4 to right leg/lymphedema), Leg Pain, Limited Range of Motion Neurological: Alert, Oriented, CN II-XII Intact, Normal Cognition Psychiatric: Normal Affect, Normal Mood Skin Exam: Warm, Dry, Intact, Normal Color, No Rash Lymphatic: No Adenopathy #1 Interpretation EKG Date: 02/23/21 Time: 18:45 Rhythm: Other (Sinus tachycardia) Rate (Beats/Min): 138 Rosamond: Normal P-Wave: Present QRS: Normal ST-T: Normal QT: Prolonged Comparison: NA - No Prior EKG Course - Vital Signs Last Recorded V/S: Last Vital Signs Temp 102.5 F H 02/23/21 17:09 Pulse 60 02/23/21 17:09 Resp 20 02/23/21 17:09 BP 127/57 L 02/23/21 17:09 Pulse Ox 98 02/23/21 17:09 - Orders/Labs/Meds Orders: Active Orders 24 hr Category Date Time Status EKG Documentation Completion [RC] STAT Care 02/23/21 18:41 Active AMMONIA VENOUS [CHEM] Stat Lab 02/23/21 18:49 Ordered B-TYPE NATRIURETIC PEPTIDE,BNP [CHEM] Stat Lab 02/23/21 18:43 Ordered CULTURE BLOOD [BC] Stat Lab 02/23/21 17:30 Received CULTURE BLOOD [BC] Stat Lab 02/23/21 17:34 Ordered REFLEX LACTIC ACID YES OR NO [CHEM] Routine Lab 02/23/21 18:04 Received Potassium Chloride [KCl in Water 10 MEQ/100 ML] 10 meq Med 02/23/21 18:12 Active Premix Bag 1 bag IV ONETIME Sodium Chloride 0.9% [Normal Saline] 1,000 ml Med 02/23/21 18:12 Active IV .BOLUS Sodium Chloride 0.9% [Normal Saline] 1,000 ml Med 02/23/21 18:45 Active IV ASDIRECTED VANCOmycin 1.5 GM/300 ML 1.5 gm Med 02/23/21 18:49 Ordered Premix Bag 1 bag IV ONETIME Blood Culture x2 Reflex Set [OM.PC] Stat Oth 02/23/21 17:33 Ordered Medication Orders Sodium Chloride (Normal Saline) 1,000 mls @ 999 mls/hr IV .BOLUS ONE Stop: 02/23/21 19:12 Last Admin: 02/23/21 18:24 Dose: 999 mls/hr Documented by: [email or web address] Potassium Chloride 10 meq/ (Premix) 100 mls @ 100 mls/hr IV ONETIME ONE Stop: 02/23/21 19:11 Last Admin: 02/23/21 18:24 Dose: 100 mls/hr Documented by: [email or web address] Sodium Chloride (Normal Saline) 1,000 mls @ 250 mls/hr IV ASDIRECTED SILVESTRE Last Admin: 02/23/21 18:43 Dose: 250 mls/hr Documented by: BENSON Labs: Laboratory Tests 02/23/21 02/23/21 02/23/21 Range/Units 16:50 17:30 17:30 WBC 17.6 H (5.0-10.0) 10^3/uL RBC 2.87 L (4.6-6.2) 10^6/uL Hgb 9.7 L (14.0-18.0) g/dL Hct 29.1 L (40.0-54.0) % MCV 101.4 H D (80-100) fL MCH 33.8 (27.0-34.0) pg MCHC 33.3 (33.0-35.0) g/dL Plt Count 170 (150-450) 10^3/uL Neut % (Auto) 93.3 H (42.2-75.2) % Lymph % (Auto) 4.5 L (20.5-50.1) % [place] % (Auto) 1.9 L (2-8) % Eos % (Auto) 0.2 L (1.0-3.0) % Baso % (Auto) 0.1 (0.0-1.0) % Sodium 134 L (136-145) mmol/L Potassium 2.9 L (3.5-5.1) mmol/L Chloride 99 (98-107) mmol/L Carbon Dioxide 22 (21-32) mmol/L Anion Gap 15.9 H (7-13) mEq/L BUN 11 (7-18) mg/dL Creatinine 1.62 H (0.70-1.30) mg/dL Est Cr Clr Drug Dosing TNP Estimated GFR (MDRD) 47 BUN/Creatinine Ratio 6.8 (No establ ref range) Glucose 75 (74-99) mg/dL Lactic Acid (0.4-2.0) mmol/L Calcium 7.3 L (8.5-10.1) mg/dL Magnesium 1.6 L (1.8-2.4) mg/dL Total Bilirubin 5.2 H (0.2-1.0) mg/dL AST 56 H (15-37) U/L ALT 31 (16-63) U/L Alkaline Phosphatase 181 H (46-116) U/L C-Reactive Protein 3.4 H (0.0-0.9) mg/dL Total Protein 9.9 H (6.4-8.2) g/dL Albumin 1.1 L (3.4-5.0) g/dL Globulin 8.8 Albumin/Globulin Ratio 0.13 Urine Color (YELLOW) Urine Appearance (CLEAR) Urine pH (5.0-9.0) Ur Specific [place] (1.005-1.030) Urine Protein (NEGATIVE) Urine Glucose (UA) (NEGATIVE) Urine Ketones (NEGATIVE) Urine Occult Blood (NEGATIVE) Urine Nitrite (NEGATIVE) Urine Bilirubin (NEGATIVE) Urine Urobilinogen (0.2-1.0) mg/dL Ur Leukocyte Esterase (NEGATIVE) Urine RBC /HPF Urine WBC (0-5/HPF) /HPF Ur Epithelial Cells (NOT SEEN) /HPF Amorphous Sediment (NOT SEEN) /HPF Urine Bacteria (0-FEW/HPF) /HPF Urine Mucus (NOT SEEN) /LPF Urine Other Influenza Type A RNA Negative (NEGATIVE) Influenza Type B RNA Negative (NEGATIVE) SARS-CoV-2 RNA (DANN) Negative (NEGATIVE) 02/23/21 02/23/21 Range/Units 17:30 17:39 WBC (5.0-10.0) 10^3/uL RBC (4.6-6.2) 10^6/uL Hgb (14.0-18.0) g/dL Hct (40.0-54.0) % MCV (80-100) fL MCH (27.0-34.0) pg MCHC (33.0-35.0) g/dL Plt Count (150-450) 10^3/uL Neut % (Auto) (42.2-75.2) % Lymph % (Auto) (20.5-50.1) % [place] % (Auto) (2-8) % Eos % (Auto) (1.0-3.0) % Baso % (Auto) (0.0-1.0) % Sodium (136-145) mmol/L Potassium (3.5-5.1) mmol/L Chloride (98-107) mmol/L Carbon Dioxide (21-32) mmol/L Anion Gap (7-13) mEq/L BUN (7-18) mg/dL Creatinine (0.70-1.30) mg/dL Est Cr Clr Drug Dosing Estimated GFR (MDRD) BUN/Creatinine Ratio (No establ ref range) Glucose (74-99) mg/dL Lactic Acid 7.6 H* (0.4-2.0) mmol/L Calcium (8.5-10.1) mg/dL Magnesium (1.8-2.4) mg/dL Total Bilirubin (0.2-1.0) mg/dL AST (15-37) U/L ALT (16-63) U/L Alkaline Phosphatase (46-116) U/L C-Reactive Protein (0.0-0.9) mg/dL Total Protein (6.4-8.2) g/dL Albumin (3.4-5.0) g/dL Globulin Albumin/Globulin Ratio Urine Color Gaye (YELLOW) Urine Appearance Cloudy (CLEAR) Urine pH 6.5 (5.0-9.0) Ur Specific [place] 1.020 (1.005-1.030) Urine Protein 100 H (NEGATIVE) Urine Glucose (UA) Negative (NEGATIVE) Urine Ketones Trace H (NEGATIVE) Urine Occult Blood Moderate H (NEGATIVE) Urine Nitrite Negative (NEGATIVE) Urine Bilirubin Large H (NEGATIVE) Urine Urobilinogen >=8.0 H (0.2-1.0) mg/dL Ur Leukocyte Esterase Small H (NEGATIVE) Urine RBC 75-100 H /HPF Urine WBC >100 H (0-5/HPF) /HPF Ur Epithelial Cells Few (NOT SEEN) /HPF Amorphous Sediment Moderate (NOT SEEN) /HPF Urine Bacteria Moderate H (0-FEW/HPF) /HPF Urine Mucus Moderate H (NOT SEEN) /LPF Urine Other See note Influenza Type A RNA (NEGATIVE) Influenza Type B RNA (NEGATIVE) SARS-CoV-2 RNA (DANN) (NEGATIVE) Meds: Medications Generic Name Dose Route Start Last Admin Trade Name Freq PRN Reason Stop Dose Admin Sodium Chloride 1,000 mls @ 999 mls/hr 02/23/21 18:12 02/23/21 18:24 Normal Saline IV 02/23/21 19:12 999 mls/hr .BOLUS ONE Administration Potassium Chloride 10 meq/ 100 mls @ 100 mls/hr 02/23/21 18:12 02/23/21 18:24 Premix IV 02/23/21 19:11 100 mls/hr ONETIME ONE Administration Sodium Chloride 1,000 mls @ 250 mls/hr 02/23/21 18:45 02/23/21 18:43 Normal Saline IV 250 mls/hr ASDIRECTED SILVESTRE Administration Discontinued Medications Generic Name Dose Route Start Last Admin Trade Name Freq PRN Reason Stop Dose Admin Acetaminophen 650 mg 02/23/21 17:32 02/23/21 17:44 Acetaminophen 325 Mg Tab PO 02/23/21 17:33 650 mg NOW ONE Administration Acetaminophen Confirm 02/23/21 17:34 02/23/21 18:38 Acetaminophen 325 Mg Tab Administered 02/23/21 17:35 Not Given Dose 650 mg .ROUTE .STK-MED ONE Sodium Chloride 1,000 mls @ 999 mls/hr 02/23/21 17:32 02/23/21 17:44 Normal Saline IV 02/23/21 18:32 999 mls/hr .BOLUS ONE Administration Piperacillin Sod/Tazobactam 100 mls @ 200 mls/hr 02/23/21 18:11 02/23/21 18:24 Sod 3.375 gm/ Sodium Chloride IV 02/23/21 18:40 200 mls/hr ONETIME ONE Administration - Radiology Interpretation Free Text/Narrative:: Chest xray: PROCEDURE INFORMATION: Exam: XR Chest Exam date and time: 02/23/2021 6:27 PM Age: 40 years old Clinical indication: Other: Elevated wbc TECHNIQUE: Imaging protocol: XR of the chest Views: 1 view. COMPARISON: No relevant prior studies available. FINDINGS: Tubes, catheters and devices: EKG leads overlie the chest. Lungs: There is vascular congestion. There is no lobar consolidation. Pleural spaces: Unremarkable. No pleural effusion. No pneumothorax. Heart/Mediastinum: Unremarkable. No cardiomegaly. Bones/joints: Unremarkable. IMPRESSION: Mild vascular congestion. No lobar consolidation. Thank you for allowing us to participate in the care of your patient. Dictated and Authenticated by: Rachana Ojeda MD 02/23/2021 6:41 PM Central Time ([place] & [place]) See rad report Departure - Departure Time of Disposition: 18:50 Disposition: DC/Tfer to Acute Hospital 02 Condition: Serious Clinical Impression: Lymphedema of right lower extremity, Hypokalemia Sepsis Qualifiers: Sepsis type: sepsis due to unspecified organism Sepsis acute organ dysfunction status: unspecified Qualified Code(s): A41.9 - Sepsis, unspecified organism Liver cirrhosis Qualifiers: Hepatic cirrhosis type: unspecified hepatic cirrhosis Ascites presence: with ascites Qualified Code(s): K74.60 - Unspecified cirrhosis of liver; R18.8 - O ther ascites - Discharge Information *PRESCRIPTION DRUG MONITORING PROGRAM REVIEWED*: No *COPY OF PRESCRIPTION DRUG MONITORING REPORT IN PATIENT CHARITY: No Forms: ED Department Discharge, Interfacility Transfer EMTALA Sepsis Event Note (ED) - Evaluation Sepsis Screening Result: No Definite Risk - Focused Exam Vital Signs: Vital Signs Temp Pulse Resp BP Pulse Ox 02/23/21 17:09 102.5 F H 60 20 127/57 L 98 - My Orders Last 24 Hours: My Active Orders 02/23/21 17:30 CULTURE BLOOD [BC] Stat 02/23/21 17:33 Blood Culture x2 Reflex Set [OM.PC] Stat 02/23/21 17:34 CULTURE BLOOD [BC] Stat 02/23/21 18:04 REFLEX LACTIC ACID YES OR NO [CHEM] Routine 02/23/21 18:12 Potassium Chloride [KCl in Water 10 MEQ/100 ML] 10 meq Premix Bag 1 bag IV ONETIME Sodium Chloride 0.9% [Normal Saline] 1,000 ml IV .BOLUS 02/23/21 18:41 EKG Documentation Completion [RC] STAT 02/23/21 18:43 B-TYPE NATRIURETIC PEPTIDE,BNP [CHEM] Stat 02/23/21 18:45 Sodium Chloride 0.9% [Normal Saline] 1,000 ml IV ASDIRECTED 02/23/21 18:49 AMMONIA VENOUS [CHEM] Stat VANCOmycin 1.5 GM/300 ML 1.5 gm Premix Bag 1 bag IV ONETIME - Assessment/Plan Last 24 Hours: My Active Orders 02/23/21 17:30 CULTURE BLOOD [BC] Stat 02/23/21 17:33 Blood Culture x2 Reflex Set [OM.PC] Stat 02/23/21 17:34 CULTURE BLOOD [BC] Stat 02/23/21 18:04 REFLEX LACTIC ACID YES OR NO [CHEM] Routine 02/23/21 18:12 Potassium Chloride [KCl in Water 10 MEQ/100 ML] 10 meq Premix Bag 1 bag IV ONETIME Sodium Chloride 0.9% [Normal Saline] 1,000 ml IV .BOLUS 02/23/21 18:41 EKG Documentation Completion [RC] STAT 02/23/21 18:43 B-TYPE NATRIURETIC PEPTIDE,BNP [CHEM] Stat 02/23/21 18:45 Sodium Chloride 0.9% [Normal Saline] 1,000 ml IV ASDIRECTED 02/23/21 18:49 AMMONIA VENOUS [CHEM] Stat VANCOmycin 1.5 GM/300 ML 1.5 gm Premix Bag 1 bag IV ONETIME
[2021-02-23 17:48] LABS: CORONAVIRUS COVID-19 NAA NEGATIVE (NEGATIVE)
[2021-02-23 17:57] LABS: ANION GAP 15.9 mEq/L (7-13); CHLORIDE,CL 99 mmol/L (98-107); SODIUM,NA 134 mmol/L (136-145)
[2021-02-23] MEDS ORDERED: Piperacillin/Tazobactam 3.375 GM in Sodium Chloride 0.9% 100 ML IV ONE (18:11)
[2021-02-23] MEDS ORDERED: Potassium Chloride 10 MEQ in Premix Bag 1 BAG IV ONE (18:12)
--- NOTE | 2021-02-23 18:41 | CR ---
PROCEDURE INFORMATION: Exam: XR Chest Exam date and time: 02/23/2021 6:27 PM Age: 40 years old Clinical indication: Other: Elevated wbc TECHNIQUE: Imaging protocol: XR of the chest Views: 1 view. COMPARISON: No relevant prior studies available. FINDINGS: Tubes, catheters and devices: EKG leads overlie the chest. Lungs: There is vascular congestion. There is no lobar consolidation. Pleural spaces: Unremarkable. No pleural effusion. No pneumothorax. Heart/Mediastinum: Unremarkable. No cardiomegaly. Bones/joints: Unremarkable. IMPRESSION: Mild vascular congestion. No lobar consolidation.
[2021-02-23] MEDS ORDERED: Sodium Chloride 0.9% 1,000 ML IV SCH (18:45)
[2021-02-23] MEDS ORDERED: VANCOmycin 1.5 GM/300 ML 1.5 GM in Premix Bag 1 BAG IV ONE (18:49)
== END 2021-02-23 19:30 ==
LOC: DL.ED 16:46
DX: A41.9 Sepsis, unspecified organism (principal); K74.60 Unspecified cirrhosis of liver; R18.8 Other ascites; E87.6 Hypokalemia; I89.0 Lymphedema, not elsewhere classified; I10 Essential (primary) hypertension; R00.0 Tachycardia, unspecified; Z88.8 Allergy status to other drugs, medicaments and biological substances; Z79.899 Other long term (current) drug therapy; Z20.822 Contact with and (suspected) exposure to COVID-19
CPT/HCPCS: 0240U; 36415; 71045; 80053; 81001; 82140; 83605; 83735; 83880; 85025; 86140; 87040; 87077; 87186; 93005; 93010; 96365; 96368; 99284; 99285; A9270; J2543; J3370; J3480; J7030

== ENCOUNTER 2021-03-03 11:51 | Inpatient (IN) | payer MEDICARE, MEDICAID ==
[2021-03-03] MEDS ORDERED: Ondansetron 4 MG/2 ML SDV IVPUSH PRN (17:13)
--- NOTE | 2021-03-03 17:56 | PCM.HP ---
H&P History of Present Illness - General Date of Service: 03/03/21 Admit Problem/Dx: Admission Diagnosis/Problem Admission Diagnosis/Problem Sepsis Source of Information: Patient, Family, Other (hospital transfer records) History Limitations: Reports: No Limitations - History of Present Illness Initial Comments - Free Text/Narative: Pt is 40 y/o man with remote history of Ethoh, recently admitted for sepsis/ shock , hepatic encephalopathy, SBP, Cellulitis to RT leg, Bacteremia. Pt was treated with IV antibiotics, underwent paracentesis ( ~ 10 L) which confirmed SBP. He also underwent CT of RT leg which showed cellulitis with no DVT. Pt was sent to [facility] to complete his antibiotic course ( Ceftriaxone 2 G X 10 days and Daptomycin for 7 days). pt reports that he is feeling much better than before. His abdomen is less distended than before. His RT leg is chronically swollen and it is not tender any more Duration of Symptoms: Reports: Week(s): (2) - Related Data Allergies/Adverse Reactions: Allergies Allergy/AdvReac Type Severity Reaction Status Date / Time aspirin Allergy Swelling Verified 03/03/21 14:40 Home Medications: Home Meds Ferrous Sulfate 325 mg PO DAILY 03/03/21 [History] Folic Acid 1 mg PO DAILY 03/03/21 [History] Furosemide [Lasix] 40 mg PO DAILY 03/03/21 [History] Magnesium 250 mg PO DAILY 03/03/21 [History] Metoprolol Tartrate [Lopressor] 50 mg PO DAILY 03/03/21 [History] Pantoprazole Sodium [Protonix] 40 mg PO DAILY 03/03/21 [History] Potassium Chloride [Klor-Con 10] 20 meq PO BID 03/03/21 [History] Spironolactone [Aldactone] 25 mg PO DAILY 03/03/21 [History] Past Medical History HEENT History: Reports: Other (See Below) Other HEENT History: left lazy eye Cardiovascular History: Reports: Hypertension Respiratory History: Reports: None Gastrointestinal History: Reports: GERD Genitourinary History: Reports: None Musculoskeletal History: Reports: None Neurological History: Reports: None Psychiatric History: Reports: None Endocrine/Metabolic History: Reports: None Hematologic History: Reports: None Immunologic History: Reports: None Oncologic (Cancer) History: Reports: None Dermatologic History: Reports: Cellulitis, Other (See Below) Other Dermatologic History: fungus on feet and fingernails. - Infectious Disease History Infectious Disease History: Reports: None - Past Surgical History Head Surgeries/Procedures: Reports: None Social & Family History - Family History Family Medical History: No Pertinent Family History - Tobacco Use Tobacco Use Status *Q: Never Tobacco User Second Hand Smoke Exposure: No - Caffeine Use Caffeine Use: Reports: Coffee, Soda - Recreational Drug Use Recreational Drug Use: Yes Recreational Drug Type: Reports: Marijuana/Hashish Recreational Drug Use Frequency: Rarely H&P Review of Systems - Review of Systems: Review Of Systems: See Below General: Denies: Fever, Chills Pulmonary: Denies: Shortness of Breath Cardiovascular: Denies: Chest Pain Gastrointestinal: Denies: Abdominal Pain, Anorexia, Black Stool Genitourinary: Denies: Dysuria Musculoskeletal: Reports: Other (RT leg swollen) Skin: Reports: Other (Chronic skin changes to RT leg) Psychiatric: Denies: Confusion Neurological: Denies: Confusion Hematologic/Lymphatic: Reports: Anemia Exam - Exam Exam: See Below - Exam Quality Assessment: No: Supplemental Oxygen General: Alert, Oriented HEENT: EOMI Neck: Supple Lungs: Clear to Auscultation, Normal Respiratory Effort Cardiovascular: Regular Rate, Regular Rhythm GI/Abdominal Exam: Soft, Non-Tender, Distended, Other (ascites. site of recent darinage) (Male) Exam: Deferred Rectal (Males) Exam: Deferred Back Exam: Full Range of Motion Extremities: Other (RT leg edema and swelling. piccline to RT upper ext. ) Skin: Other (chronic changes to RT leg) Neurological: Cranial Nerves Intact Neuro Extensive - Mental Status: Alert, Oriented x3 Neuro Extensive - Motor, Sensory, Reflexes: CN II-XII Intact Psychiatric: Alert, Normal Affect *Q Meaningful Use (ADM) - VTE *Q VTE Pharmacological Contraindications *Q: Risk of Bleeding Problem List Initiated/Reviewed/Updated: Yes Orders Last 24hrs: Active Orders 24 hr Category Date Time Status Patient Status [ADT] Routine ADT 03/03/21 16:32 Active Antiembolic Devices [RC] PER UNIT ROUTINE Care 03/03/21 17:16 Active Height and Weight [RC] DAILY Care 03/03/21 17:13 Active Intake and Output [RC] QSHIFT Care 03/03/21 17:13 Active Oxygen Therapy [RC] PRN Care 03/03/21 17:13 Active Up With Assistance [RC] ASDIRECTED Care 03/03/21 17:13 Active VTE/DVT Education [RC] PER UNIT ROUTINE Care 03/03/21 17:13 Active Vital Signs [RC] Q4H Care 03/03/21 17:13 Active 2 Gram Sodium Diet [DIET] Diet 03/03/21 Dinner Active CBC WITH AUTO DIFF [HEME] Routine Lab 03/08/21 05:00 Ordered COMPREHENSIVE METABOLIC PN,CMP [CHEM] Routine Lab 03/08/21 05:00 Ordered DAPTOmycin [Cubicin] 500 mg Med 03/04/21 09:00 Pending Sodium Chloride 0.9% [Normal Saline] 50 ml IV DAILY Ferrous Sulfate Med 03/04/21 08:00 Active 325 mg PO WITHBREAKFAST Folic Acid Med 03/04/21 09:00 Active 1 mg PO DAILY Furosemide [Lasix] Med 03/04/21 09:00 Active 40 mg PO DAILY Lactulose [Cephulac] Med 03/04/21 09:00 Active 20 gm PO DAILY Magnesium Oxide Med 03/04/21 08:00 Active 250 mg PO WITHBREAKFAST Metoprolol Succinate [Toprol XL] Med 03/04/21 09:00 Active 50 mg PO DAILY Ondansetron [Zofran] Med 03/03/21 17:13 Active 4 mg IVPUSH Q4H PRN Pantoprazole [ProTONIX] Med 03/04/21 06:00 Active 40 mg PO ACBREAKFAST Potassium Chloride [Klor-Con 10] Med 03/03/21 18:00 Active 20 meq PO BIDMEALS Spironolactone [Aldactone] Med 03/04/21 09:00 Active 25 mg PO DAILY cefTRIAXone [Rocephin] 2 gm Med 03/04/21 17:30 Active Sodium Chloride 0.9% [Normal Saline] 100 ml IV Q24H Antiembolic Hose [OM.PC] Per Unit Routine Oth 03/03/21 17:15 Ordered Sequential Compression Device [OM.PC] Per Unit Routine Oth 03/03/21 17:15 Ordered VTE Pharmacological Contraindications [AST] Per Unit Oth 03/03/21 17:13 Ordered Routine Resuscitation Status Routine Resus Stat 03/03/21 17:13 Ordered Medication Orders Ferrous Sulfate (Ferrous Sulfate 325 Mg Tab) 325 mg PO WITHBREAKFAST S[facility]VESTRE Folic Acid (Folic Acid 1 Mg Tab) 1 mg PO DAILY [facility] Furosemide (Furosemide 40 Mg Tab) 40 mg PO DAILY [facility] Ceftriaxone Sodium 2 gm/ (Sodium Chloride) 100 mls @ 200 mls/hr IV Q24H [facility] Stop: 03/14/21 17:31 Daptomycin 500 mg/ Sodium (Chloride) 50 mls @ 100 mls/hr IV DAILY [facility] Stop: 03/09/21 09:01 Lactulose (Lactulose Soln 10 Gm/15 Ml 30 Ml Ud Cup) 20 gm PO DAILY [facility] Magnesium Oxide (Magnesium Oxide 250 Mg Tab) 250 mg PO WITHBREAKFAST [facility] Metoprolol Succinate (Metoprolol Succinate 50 Mg Tab.Er) 50 mg PO DAILY [facility] Ondansetron HCl (Ondansetron 4 Mg/2 Ml Sdv) 4 mg IVPUSH Q4H PRN PRN Reason: Nausea/Vomiting Pantoprazole Sodium (Pantoprazole 40 Mg Tab.Cr) 40 mg PO ACBREAKFAST [facility] Potassium Chloride (Potassium Chloride 10 Meq Tab.Er) 20 meq PO BIDMEALS [facility] Spironolactone (Spironolactone 25 Mg Tab) 25 mg PO DAILY [facility] Assessment/Plan Comment:: Pt is 40 y/o man with remote history of Ethoh, recently admitted for sepsis/ shock , hepatic encephalopathy, SBP, Cellulitis to RT leg, Bacteremia. Pt was treated with IV antibiotics, underwent paracentesis ( ~ 10 L) which confirmed SBP. He also underwent CT of RT leg which showed cellulitis with no DVT. Pt was sent to [facility] to complete his antibiotic course ( Ceftriaxone 2 G X 10 days and Daptomycin for 7 days). pt reports that he is feeling much better than before. His abdomen is less distended than before. His RT leg is chronically swollen and it is not tender any more post severe sepsis/ bacteremia/hepatic encephalopathy/ liver cirrhosis/ SBP/ Cellulites RT leg/ anemia/ SAMINA/ Pt was sent to [facility] to complete his antibiotic course ( Ceftriaxone 2 G X 10 days and Daptomycin for 7 days Continue with hospital medications and antibiotics as per hospital discharge summary. including Lasix, Spironolactone,Metoprolol, Mag oxide Add Lactulose DVT prophylaxis ( mechanical) : high risk of bleeding. Full code D/W pt and his son
[2021-03-03] MEDS ORDERED: Potassium Chloride 10 MEQ Tab.ER PO SCH ×2 (18:00→21:00)
[2021-03-03] MEDS ORDERED: Lactulose Soln 10 GM/15 ML 30 ML UD Cup PO PRN (18:07)
[2021-03-03] MEDS ORDERED: DAPTOmycin 500 MG in Sodium Chloride 0.9% 50 ML IV SCH (18:30)
[2021-03-03] MEDS: Potassium Chloride 10 MEQ Tab.ER PO SCH (19:20)
[2021-03-03] MEDS ORDERED: Carboxymethylcellulose Sodium 1% Ophth Gel 0.4 ML UD EYEBOTH PRN (19:37)
[2021-03-03] MEDS ORDERED: Metoprolol Tartrate 50 MG Tab PO SCH (21:00)
[2021-03-04] MEDS ORDERED: Pantoprazole 40 MG Tab.CR PO SCH ×2 (06:00→09:00)
[2021-03-04] MEDS ORDERED: Ferrous Sulfate 325 MG Tab PO SCH ×2 (08:00→09:00)
[2021-03-04] MEDS ORDERED: Metoprolol Succinate 50 MG Tab.ER PO SCH (09:00)
[2021-03-04] MEDS ORDERED: Lactulose Soln 10 GM/15 ML 30 ML UD Cup PO SCH (09:00)
[2021-03-04] MEDS ORDERED: Furosemide 40 MG Tab PO SCH ×2 (09:00)
[2021-03-04] MEDS ORDERED: Folic Acid 1 MG Tab PO SCH ×2 (09:00)
[2021-03-04] MEDS ORDERED: Spironolactone 25 MG Tab PO SCH ×2 (09:00)
[2021-03-04] MEDS ORDERED: Non-Formulary Medication 1 Each (Magnesium [Magnesium] 250 MG Tablet) PO SCH (09:00)
[2021-03-04] MEDS: Lactulose Soln 10 GM/15 ML 30 ML UD Cup PO SCH ×2 (09:10→20:46)
[2021-03-04] MEDS: Potassium Chloride 10 MEQ Tab.ER PO SCH ×2 (09:10→18:32)
[2021-03-04] MEDS: Metoprolol Tartrate 50 MG Tab PO SCH (09:11)
[2021-03-04] MEDS: Spironolactone 25 MG Tab PO SCH (09:12)
[2021-03-04] MEDS: Pantoprazole 40 MG Tab.CR PO SCH (09:12)
[2021-03-04] MEDS: Furosemide 40 MG Tab PO SCH (09:12)
[2021-03-04] MEDS: Folic Acid 1 MG Tab PO SCH (09:13)
[2021-03-04] MEDS: Ferrous Sulfate 325 MG Tab PO SCH (09:13)
--- NOTE | 2021-03-04 13:11 | US ---
EXAMINATION: Venous Doppler Lwr Ext Rt SEX: Male AGE: 40 years CLINICAL HISTORY: 40-year-old male with RLE (right LEG) calf pain and swelling. Rule out DVT this patient who had a "negative" ultrasound exam RLE, August 2017. INTERPRETATION: Negative exam. 1. No sign of intraluminal echogenic thrombus and normal compressibility deep veins of the right groin, thigh, knee and calf. 2. Satisfactory augmentation and venous waveforms demonstrated respectively in the posterior tibial/peroneal veins of the right calf, popliteal vein behind the right knee, and possibly in the femoral veins of the right thigh and groin. 3. No popliteal or Linder's cyst. 4. No inguinal lymphadenopathy or subcutaneous hematoma. Superficial greater saphenous vein patent.
[2021-03-04] MEDS ORDERED: cefTRIAXone 2 GM in Sodium Chloride 0.9% 100 ML IV SCH (17:00)
[2021-03-04] MEDS ORDERED: DAPTOmycin 500 MG in Sodium Chloride 0.9% 50 ML IV SCH (18:00)
[2021-03-05] MEDS ORDERED: Sodium Chloride 0.9% 10 ML Syringe FLUSH PRN (06:04)
[2021-03-05] MEDS: Potassium Chloride 10 MEQ Tab.ER PO SCH (07:44)
[2021-03-05] MEDS: Folic Acid 1 MG Tab PO SCH (09:29)
[2021-03-05] MEDS: Ferrous Sulfate 325 MG Tab PO SCH (09:29)
[2021-03-05] MEDS: Pantoprazole 40 MG Tab.CR PO SCH (09:29)
[2021-03-05] MEDS: Lactulose Soln 10 GM/15 ML 30 ML UD Cup PO SCH (09:30)
[2021-03-05] MEDS: Spironolactone 25 MG Tab PO SCH (09:30)
[2021-03-05] MEDS: Furosemide 40 MG Tab PO SCH (09:30)
[2021-03-05] MEDS: Metoprolol Tartrate 50 MG Tab PO SCH (09:37)
--- NOTE | 2021-03-05 11:39 | PCM.DCSUM1 ---
Discharge Summary - Hospital Course Free Text/Narrative:: Pt is 40 y/o man with remote history of Ethoh, recently admitted for sepsis/ shock , hepatic encephalopathy, SBP, Cellulitis to RT leg, Bacteremia. Pt was treated with IV antibiotics, underwent paracentesis ( ~ 10 L) which confirmed SBP. He also underwent CT of RT leg which showed cellulitis with no DVT. Pt was sent to [facility] to complete his antibiotic course ( Ceftriaxone 2 G X 10 days and Daptomycin for 7 days). On admission to [facility], pt reported that he was feeling much better than before. His abdomen is less distended than before. His RT leg is chronically swollen and it is not tender any more post severe sepsis/ bacteremia/hepatic encephalopathy/ liver cirrhosis/ SBP/ Cellulites RT leg/ anemia/ SAMINA/ Pt was sent to [facility] to complete his antibiotic course ( Ceftriaxone 2 G X 10 days and Daptomycin for 7 days). Continue with hospital medications. including Lasix, Spironolactone, Mag oxide. Add Lactulose Metoprolol dose was lowered from 50mg to 25 mg due to borderline BP. Although recent CT scan showed no DVT his leg was swollen>> Doppler was ordered for confirmation and there was no DVT. During his stay ID felt that antibiotics can be arranged as out pt and antibiotics were arranged by ID. - Discharge Data Discharge Date: 03/05/21 Discharge Disposition: Home, Self-Care 01 Condition: Fair - Referral to Home Health Primary Care Physician: PCP Unobtainable - Patient Summary/Data Consults: Consultations 03/04/21 09:40 Consult to Occupational Therapy [OT Evaluation and Treatment] [CONS] Routine Consult to Physical Therapy [PT Evaluation and Treatment] [CONS] Routine - Patient Instructions Other/Special Instructions: FOr outpatient antibiotics as planned by youur infectious disease doctor. See your doctor in one week. Low salt diet. report to your doctor if any fever, nasuea/ vomiting/ abdominal pain or sigificant wieght gain. ER if not better or any change - Discharge Plan Prescriptions/Med Rec: Spironolactone [Aldactone] 25 mg PO DAILY 30 Days #30 Lactulose [Cephulac] 20 gm PO BID 30 Days #60 cup Ferrous Sulfate 325 mg PO DAILY 30 Days #30 Folic Acid 1 mg PO DAILY 30 Days #30 Potassium Chloride [Klor-Con 10] 20 meq PO BIDMEALS 30 Days #30 tab.er Furosemide [Lasix] 40 mg PO DAILY 30 Days #30 Metoprolol Tartrate [Lopressor] 25 mg PO DAILY 30 Days #30 Magnesium Oxide 250 mg PO WITHBREAKFAST 30 Days #30 tablet Pantoprazole Sodium [Protonix] 40 mg PO DAILY 30 Days #30 Home Medications: Home Meds Magnesium 250 mg PO DAILY 03/03/21 [History] Potassium Chloride [Klor-Con 10] 20 meq PO BID 03/03/21 [History] DAPTOmycin [Cubicin] 500 mg IV Q24H vial 03/05/21 [Rx] Ferrous Sulfate 325 mg PO DAILY 30 Days #30 03/05/21 [Rx] Folic Acid 1 mg PO DAILY 30 Days #30 03/05/21 [Rx] Furosemide [Lasix] 40 mg PO DAILY 30 Days #30 03/05/21 [Rx] Lactulose [Cephulac] 20 gm PO BID 30 Days #60 cup 03/05/21 [Rx] Magnesium Oxide 250 mg PO WITHBREAKFAST 30 Days #30 tablet 03/05/21 [Rx] Metoprolol Tartrate [Lopressor] 25 mg PO DAILY 30 Days #30 03/05/21 [Rx] Pantoprazole Sodium [Protonix] 40 mg PO DAILY 30 Days #30 03/05/21 [Rx] Potassium Chloride [Klor-Con 10] 20 meq PO BIDMEALS 30 Days #30 tab.er 03/05/21 [Rx] Spironolactone [Aldactone] 25 mg PO DAILY 30 Days #30 03/05/21 [Rx] cefTRIAXone [Rocephin] 2 gm IV Q24H vial 03/05/21 [Rx] - Discharge Summary/Plan Comment DC Time >30 min.: No - General Info Date of Service: 03/05/21 Subjective Update: Feeling better, no abd pain. V, no leg pain Functional Status: Reports: Pain Controlled - Review of Systems General: Denies: Fever Pulmonary: Denies: Shortness of Breath Cardiovascular: Denies: Chest Pain Gastrointestinal: Denies: Abdominal Pain Musculoskeletal: Denies: Leg Pain Skin: Reports: Other (RT leg with chronic changes. chronic swelling . no tenderenss) Neurological: Denies: Confusion Psychiatric: Denies: Confusion - Patient Data Vitals - Most Recent: Last Vital Signs Temp 98.7 F 03/05/21 08:09 Pulse 69 03/05/21 09:37 Resp 18 03/05/21 08:09 BP 97/60 03/05/21 09:37 Pulse Ox 100 03/05/21 08:09 Weight - Most Recent: 161 lb 3.2 oz I&O - Last 24 hours: Intake & Output 03/04/21 03/05/21 03/05/21 22:59 06:59 14:59 Intake Total 293 600 Output Total 450 Balance 293 150 Med Orders - Current: Current Medications Artificial Tears (Carboxymethylcellulose Sodium 1% Ophth Gel 0.4 Ml Ud) 1 each EYEBOTH QID PRN PRN Reason: Dry Eyes Last Admin: 03/04/21 16:03 Dose: 1 each Documented by: Ferrous Sulfate (Ferrous Sulfate 325 Mg Tab) 325 mg PO DAILY [facility] Last Admin: 03/05/21 09:29 Dose: 325 mg Documented by: Folic Acid (Folic Acid 1 Mg Tab) 1 mg PO DAILY [facility] Last Admin: 03/05/21 09:29 Dose: 1 mg Documented by: Furosemide (Furosemide 40 Mg Tab) 40 mg PO DAILY [facility] Last Admin: 03/05/21 09:30 Dose: 40 mg Documented by: Ceftriaxone Sodium 2 gm/ (Sodium Chloride) 100 mls @ 200 mls/hr IV Q24H [facility] Stop: 03/05/21 13:29 Daptomycin 500 mg/ Sodium (Chloride) 50 mls @ 100 mls/hr IV Q24H [facility] Stop: 03/05/21 14:29 Lactulose (Lactulose Soln 10 Gm/15 Ml 30 Ml Ud Cup) 20 gm PO BID [facility] Last Admin: 03/05/21 09:30 Dose: 20 gm Documented by: Magnesium Oxide (Magnesium Oxide 250 Mg Tab) 250 mg PO WITHBREAKFAST [facility] Last Admin: 03/05/21 07:44 Dose: 250 mg Documented by: Metoprolol Tartrate (Metoprolol Tartrate 50 Mg Tab) 50 mg PO DAILY [facility] Last Admin: 03/05/21 09:37 Dose: 50 mg Documented by: Ondansetron HCl (Ondansetron 4 Mg/2 Ml Sdv) 4 mg IVPUSH Q4H PRN PRN Reason: Nausea/Vomiting Pantoprazole Sodium (Pantoprazole 40 Mg Tab.Cr) 40 mg PO DAILY [facility] Last Admin: 03/05/21 09:29 Dose: 40 mg Documented by: Potassium Chloride (Potassium Chloride 10 Meq Tab.Er) 20 meq PO BIDMEALS [facility] Last Admin: 03/05/21 07:44 Dose: 20 meq Documented by: Sodium Chloride (Sodium Chloride 0.9% 10 Ml Syringe) 10 ml FLUSH ASDIRECTED PRN PRN Reason: IV Use Last Admin: 03/05/21 06:16 Dose: 10 ml Documented by: Spironolactone (Spironolactone 25 Mg Tab) 25 mg PO DAILY [facility] Last Admin: 03/05/21 09:30 Dose: 25 mg Documented by: Discontinued Medications Ferrous Sulfate (Ferrous Sulfate 325 Mg Tab) 325 mg PO WITHBREAKFAST [facility] Folic Acid (Folic Acid 1 Mg Tab) 1 mg PO DAILY [facility] Furosemide (Furosemide 40 Mg Tab) 40 mg PO DAILY [facility] Ceftriaxone Sodium 2 gm/ (Sodium Chloride) 100 mls @ 200 mls/hr IV Q24H [facility] Stop: 03/13/21 17:29 Last Admin: 03/04/21 16:52 Dose: 200 mls/hr Documented by: Daptomycin 500 mg/ Sodium (Chloride) 50 mls @ 100 mls/hr IV Q24H [facility] Last Admin: 03/03/21 19:21 Dose: 100 mls/hr Documented by: Daptomycin 500 mg/ Sodium (Chloride) 50 mls @ 100 mls/hr IV Q24H [facility] Stop: 03/10/21 18:29 Last Admin: 03/04/21 19:26 Dose: 100 mls/hr Documented by: Lactulose (Lactulose Soln 10 Gm/15 Ml 30 Ml Ud Cup) 20 gm PO DAILY [facility] Lactulose (Lactulose Soln 10 Gm/15 Ml 30 Ml Ud Cup) 20 gm PO BID PRN PRN Reason: Constipation Last Admin: 03/03/21 19:20 Dose: 20 gm Documented by: Magnesium Oxide (Magnesium Oxide 250 Mg Tab) 250 mg PO WITHBREAKFAST [facility] Metoprolol Succinate (Metoprolol Succinate 50 Mg Tab.Er) 50 mg PO DAILY [facility] Metoprolol Tartrate (Metoprolol Tartrate 50 Mg Tab) 50 mg PO BID [facility] Pantoprazole Sodium (Pantoprazole 40 Mg Tab.Cr) 40 mg PO ACBREAKFAST [facility] Potassium Chloride (Potassium Chloride 10 Meq Tab.Er) 20 meq PO BIDMEALS [facility] Last Admin: 03/04/21 06:59 Dose: Not Given Documented by: Spironolactone (Spironolactone 25 Mg Tab) 25 mg PO DAILY SILVESTRE - Exam Quality Assessment: Denies: Supplemental Oxygen General: Reports: Alert, Oriented Lungs: Reports: Clear to Auscultation Cardiovascular: Reports: Regular Rate, Regular Rhythm GI/Abdominal Exam: Soft, Distended. No: Tender Back Exam: Reports: Full Range of Motion Skin: Reports: Intact, Other (Chronic changes to RT leg. RT leg chronically swollen) Neurological: Reports: No New Focal Deficit Psy/Mental Status: Reports: Normal Affect *Q Meaningful Use (DIS) - VTE *Q VTE Pharmacological Contraindications *Q: Risk of Bleeding
[2021-03-05] MEDS ORDERED: cefTRIAXone 2 GM in Sodium Chloride 0.9% 100 ML IV SCH (13:00)
[2021-03-05] MEDS ORDERED: DAPTOmycin 500 MG in Sodium Chloride 0.9% 50 ML IV SCH (14:00)
== END 2021-03-05 15:20 | disposition home or self-care (01) | DRG 871 ==
LOC: DL.MS 14:28 → UNDOADMIN 14:28 → DL.MS 16:32
PROVIDERS: ADMIT Internal Medicine; ATTEND Internal Medicine
DX: A41.9 Sepsis, unspecified organism (principal); K65.2 Spontaneous bacterial peritonitis; L03.115 Cellulitis of right lower limb; N17.9 Acute kidney failure, unspecified; K72.90 Hepatic failure, unspecified without coma; K74.60 Unspecified cirrhosis of liver; I10 Essential (primary) hypertension; K21.9 Gastro-esophageal reflux disease without esophagitis; Z88.6 Allergy status to analgesic agent; Z79.899 Other long term (current) drug therapy
CPT/HCPCS: 93971; 97161-GP; 97165-GO; A9270-GY; J0696; J0878

== ENCOUNTER 2021-03-07 23:14 | Emergency (ER) | payer MEDICARE, MEDICAID ==
[2021-03-07 23:36] LABS: ANION GAP 18.5 mEq/L (7-13); CHLORIDE,CL 105 mmol/L (98-107); SODIUM,NA 137 mmol/L (136-145)
[2021-03-07 23:48] LABS: PTT,PARTIAL THROMBOPLSTIN TIME 35.9 SEC (22.0-34.0)
--- NOTE | 2021-03-08 00:41 | EDM.PDOC ---
ED HPI GENERAL MEDICAL PROBLEM - General Chief Complaint: Neuro Symptoms/Deficits Time Seen by Provider: 03/07/21 23:20 Source of Information: Reports: Patient, Old Records, RN, RN Notes Reviewed History Limitations: Reports: No Limitations - History of Present Illness INITIAL COMMENTS - FREE TEXT/NARRATIVE: Patient presents to the ED via EMS for altered mental status via family members at home. Upon arrival to this facility, the patient is alert but oriented to self only; he does not respond verbally or physically to commands. Review of records shows this patient was discharge from swing bed at this facility on 03/05/21, following an admission at [facility] in [place] for severe sepsis and cellulitis of the right lower limb; his hospitalization lasted from 02/23/21- 03/03/21. The patient was admitted to swing bed 03/03/21, for continuation of IV antibiotics, including Rocephin and Daptomycin, however ID arranged for the patient to receive these medications OP. The patient does not offer information regarding HPI. Moves all extremities and trunk to pain, eyes remain open during the interview. No family has accompanied the patient. - Related Data Allergies Allergy/AdvReac Type Severity Reaction Status Date / Time aspirin Allergy Swelling Verified 03/07/21 23:15 Home Meds: Home Meds DAPTOmycin [Cubicin] 500 mg IV Q24H vial 03/05/21 [Rx] Ferrous Sulfate 325 mg PO DAILY 30 Days #30 03/05/21 [Rx] Folic Acid 1 mg PO DAILY 30 Days #30 03/05/21 [Rx] Furosemide [Lasix] 40 mg PO DAILY 30 Days #30 03/05/21 [Rx] Lactulose [Cephulac] 20 gm PO BID 30 Days #60 cup 03/05/21 [Rx] Magnesium Oxide 250 mg PO WITHBREAKFAST 30 Days #30 tablet 03/05/21 [Rx] Metoprolol Tartrate [Lopressor] 25 mg PO DAILY 30 Days #30 03/05/21 [Rx] Pantoprazole Sodium [Protonix] 40 mg PO DAILY 30 Days #30 03/05/21 [Rx] Potassium Chloride [Klor-Con 10] 20 meq PO BIDMEALS 30 Days #30 tab.er 03/05/21 [Rx] Spironolactone [Aldactone] 25 mg PO DAILY 30 Days #30 03/05/21 [Rx] cefTRIAXone [Rocephin] 2 gm IV Q24H vial 03/05/21 [Rx] Past Medical History HEENT History: Reports: Other (See Below) Other HEENT History: left lazy eye Cardiovascular History: Reports: Hypertension Respiratory History: Reports: None Gastrointestinal History: Reports: Cirrhosis, GERD Genitourinary History: Reports: None Musculoskeletal History: Reports: None Neurological History: Reports: None Psychiatric History: Reports: None Endocrine/Metabolic History: Reports: None Hematologic History: Reports: None Immunologic History: Reports: None Oncologic (Cancer) History: Reports: None Dermatologic History: Reports: Cellulitis, Other (See Below) Other Dermatologic History: fungus on feet and fingernails. - Infectious Disease History Infectious Disease History: Reports: None - Past Surgical History Head Surgeries/Procedures: Reports: None Social & Family History - Family History Family Medical History: No Pertinent Family History - Tobacco Use Tobacco Use Status *Q: Unknown Ever Used Tobacco - Caffeine Use Caffeine Use: Reports: None ED ROS GENERAL - Review of Systems Review Of Systems: Unable To Obtain Reason Not Obtained: Altered mental status - Physical Exam Exam: See Below Exam Limited By: Altered Mental Status General Appearance: Alert, No Apparent Distress, Cachetic Eye Exam: Right Eye: Normal Inspection, Left Eye: Periorbital Changes (Mild swelling surrounding eye), Bilateral Eye: Other (Scleral icterus) Throat/Mouth: No Airway Compromise. No: Normal Inspection (Dry mucous membranes; Beefy red tongue), Normal Lips (Dry, cracked), Normal Teeth (Poor dentition throughout; multiple missing, loose, or cracked teeth), Normal Gums (Erythematous), Normal Oropharynx (Dry mucous membranes) Head Exam: Atraumatic, Normocephalic Neck: Normal Inspection, Supple, Non-Tender, Full Range of Motion Respiratory/Chest: No Accessory Muscle Use, Rhonchi (To right upper lobe). No: Crackles, Rales, Wheezing, Stridor Cardiovascular: Regular Rate, Rhythm, No Gallop, No JVD, No Murmur, No Rub, Tachycardia. No: No Edema GI/Abdominal: Non-Tender (Palpation does not ilicit a pain response), Abnormal Bowel Sounds (Hyperactive bowel sounds), Other (wave across abdomen with palpation) (Male) Exam: No Hernia. No: Circumcised Rectal (Males) Exam: Deferred Neuro Exam (Abbreviated): Alert, Confused, Disoriented, Memory Loss Remote Events, Memory Loss Recent Events, Abnormal Gait Back Exam: Normal Inspection, Full Range of Motion Extremities: Pedal Edema (Non-pitting to RLE), Other (Dry, flaking, cracked skin to RLE). No: Leg Pain, Mottled, Pallor, Redness Skin Exam: Dry, Jaundice Course - Vital Signs Last Recorded V/S: Last Vital Signs Temp 98.3 F 03/07/21 23:00 Pulse 111 H 03/07/21 23:00 Resp 20 03/07/21 23:00 BP 124/74 03/07/21 23:00 Pulse Ox 100 03/07/21 23:00 - Orders/Labs/Meds Orders: Active Orders 24 hr Category Date Time Status EKG Documentation Completion [RC] STAT Care 03/07/21 22:54 Active REFLEX LACTIC ACID YES OR NO [CHEM] Routine Lab 03/07/21 23:38 Received Labs: Laboratory Tests 03/07/21 03/07/21 03/07/21 Range/Units 00:50 00:50 23:08 WBC 7.5 (5.0-10.0) 10^3/uL RBC 2.97 L (4.6-6.2) 10^6/uL Hgb 9.8 L (14.0-18.0) g/dL Hct 29.2 L (40.0-54.0) % MCV 98.3 D (80-100) fL MCH 33.0 (27.0-34.0) pg MCHC 33.6 (33.0-35.0) g/dL Plt Count 107 L (150-450) 10^3/uL Neut % (Auto) 76.4 H (42.2-75.2) % Lymph % (Auto) 12.7 L (20.5-50.1) % [place] % (Auto) 7.5 (2-8) % Eos % (Auto) 2.7 (1.0-3.0) % Baso % (Auto) 0.7 (0.0-1.0) % PT (9.0-12.0) SEC INR (0.9-1.2) APTT (22.0-34.0) SEC Sodium (136-145) mmol/L Potassium (3.5-5.1) mmol/L Chloride (98-107) mmol/L Carbon Dioxide (21-32) mmol/L Anion Gap (7-13) mEq/L BUN (7-18) mg/dL Creatinine (0.70-1.30) mg/dL Est Cr Clr Drug Dosing Estimated GFR (MDRD) BUN/Creatinine Ratio (No establ ref range) Glucose (70-99) mg/dL Lactic Acid (0.4-2.0) mmol/L Calcium (8.5-10.1) mg/dL Magnesium (1.8-2.4) mg/dL Total Bilirubin (0.2-1.0) mg/dL AST (15-37) U/L ALT (16-63) U/L Alkaline Phosphatase (46-116) U/L Ammonia (11-32) umol/L Troponin I (0.000-0.056) ng/mL C-Reactive Protein (0.0-0.9) mg/dL B-Natriuretic Peptide (0-100) pg/ml Total Protein (6.4-8.2) g/dL Albumin (3.4-5.0) g/dL Globulin Albumin/Globulin Ratio Amylase (25-115) U/L Lipase (73-393) U/L Urine Color Yellow (YELLOW) Urine Appearance Slightly cloudy (CLEAR) Urine pH 8.5 (5.0-9.0) Ur Specific [place] 1.020 (1.005-1.030) Urine Protein 100 H (NEGATIVE) Urine Glucose (UA) Negative (NEGATIVE) Urine Ketones Negative (NEGATIVE) Urine Occult Blood Moderate H (NEGATIVE) Urine Nitrite Negative (NEGATIVE) Urine Bilirubin Negative (NEGATIVE) Urine Urobilinogen 0.2 (0.2-1.0) mg/dL Ur Leukocyte Esterase Negative (NEGATIVE) Urine RBC 50-75 H /HPF Urine WBC 0-5 (0-5/HPF) /HPF Ur Epithelial Cells Occasional (NOT SEEN) /HPF Urine Bacteria Rare (0-FEW/HPF) /HPF Urine Mucus Rare (NOT SEEN) /LPF Urine Opiates Screen Negative (NEGATIVE) Ur Oxycodone Screen Negative (NEGATIVE) Urine Methadone Screen Negative (NEGATIVE) Ur Barbiturates Screen Negative (NEGATIVE) U Tricyclic Antidepress Negative (NEGATIVE) Ur Phencyclidine Scrn Negative (NEGATIVE) Ur Amphetamine Screen Negative (NEGATIVE) U Methamphetamines Scrn Negative (NEGATIVE) Urine MDMA Screen Negative (NEGATIVE) U Benzodiazepines Scrn Negative (NEGATIVE) Urine Cocaine Screen Negative (NEGATIVE) U Marijuana (THC) Screen Negative (NEGATIVE) Ethyl Alcohol (0) mg/dL Influenza Type A RNA (NEGATIVE) Influenza Type B RNA (NEGATIVE) SARS-CoV-2 RNA (DANN) (NEGATIVE) 03/07/21 03/07/21 03/07/21 Range/Units 23:08 23:08 23:08 WBC (5.0-10.0) 10^3/uL RBC (4.6-6.2) 10^6/uL Hgb (14.0-18.0) g/dL Hct (40.0-54.0) % MCV (80-100) fL MCH (27.0-34.0) pg MCHC (33.0-35.0) g/dL Plt Count (150-450) 10^3/uL Neut % (Auto) (42.2-75.2) % Lymph % (Auto) (20.5-50.1) % [place] % (Auto) (2-8) % Eos % (Auto) (1.0-3.0) % Baso % (Auto) (0.0-1.0) % PT 15.1 H D (9.0-12.0) SEC INR 1.5 H (0.9-1.2) APTT 35.9 H (22.0-34.0) SEC Sodium 137 (136-145) mmol/L Potassium 3.5 (3.5-5.1) mmol/L Chloride 105 (98-107) mmol/L Carbon Dioxide 17 L (21-32) mmol/L Anion Gap 18.5 H (7-13) mEq/L BUN 12 (7-18) mg/dL Creatinine 1.44 H (0.70-1.30) mg/dL Est Cr Clr Drug Dosing TNP Estimated GFR (MDRD) 54 BUN/Creatinine Ratio 8.3 (No establ ref range) Glucose 120 H (70-99) mg/dL Lactic Acid 4.4 H* (0.4-2.0) mmol/L Calcium 8.4 L (8.5-10.1) mg/dL Magnesium 2.2 (1.8-2.4) mg/dL Total Bilirubin 3.4 H (0.2-1.0) mg/dL AST 49 H (15-37) U/L ALT 32 (16-63) U/L Alkaline Phosphatase 182 H (46-116) U/L Ammonia (11-32) umol/L Troponin I < 0.017 (0.000-0.056) ng/mL C-Reactive Protein 1.7 H (0.0-0.9) mg/dL B-Natriuretic Peptide 181 H (0-100) pg/ml Total Protein 9.4 H (6.4-8.2) g/dL Albumin 2.4 L (3.4-5.0) g/dL Globulin 7.0 Albumin/Globulin Ratio 0.34 Amylase 138 H (25-115) U/L Lipase 1021 H (73-393) U/L Urine Color (YELLOW) Urine Appearance (CLEAR) Urine pH (5.0-9.0) Ur Specific [place] (1.005-1.030) Urine Protein (NEGATIVE) Urine Glucose (UA) (NEGATIVE) Urine Ketones (NEGATIVE) Urine Occult Blood (NEGATIVE) Urine Nitrite (NEGATIVE) Urine Bilirubin (NEGATIVE) Urine Urobilinogen (0.2-1.0) mg/dL Ur Leukocyte Esterase (NEGATIVE) Urine RBC /HPF Urine WBC (0-5/HPF) /HPF Ur Epithelial Cells (NOT SEEN) /HPF Urine Bacteria (0-FEW/HPF) /HPF Urine Mucus (NOT SEEN) /LPF Urine Opiates Screen (NEGATIVE) Ur Oxycodone Screen (NEGATIVE) Urine Methadone Screen (NEGATIVE) Ur Barbiturates Screen (NEGATIVE) U Tricyclic Antidepress (NEGATIVE) Ur Phencyclidine Scrn (NEGATIVE) Ur Amphetamine Screen (NEGATIVE) U Methamphetamines Scrn (NEGATIVE) Urine MDMA Screen (NEGATIVE) U Benzodiazepines Scrn (NEGATIVE) Urine Cocaine Screen (NEGATIVE) U Marijuana (THC) Screen (NEGATIVE) Ethyl Alcohol < 3 (0) mg/dL Influenza Type A RNA (NEGATIVE) Influenza Type B RNA (NEGATIVE) SARS-CoV-2 RNA (DANN) (NEGATIVE) 03/07/21 03/08/21 Range/Units 23:08 01:11 WBC (5.0-10.0) 10^3/uL RBC (4.6-6.2) 10^6/uL Hgb (14.0-18.0) g/dL Hct (40.0-54.0) % MCV (80-100) fL MCH (27.0-34.0) pg MCHC (33.0-35.0) g/dL Plt Count (150-450) 10^3/uL Neut % (Auto) (42.2-75.2) % Lymph % (Auto) (20.5-50.1) % [place] % (Auto) (2-8) % Eos % (Auto) (1.0-3.0) % Baso % (Auto) (0.0-1.0) % PT (9.0-12.0) SEC INR (0.9-1.2) APTT (22.0-34.0) SEC Sodium (136-145) mmol/L Potassium (3.5-5.1) mmol/L Chloride (98-107) mmol/L Carbon Dioxide (21-32) mmol/L Anion Gap (7-13) mEq/L BUN (7-18) mg/dL Creatinine (0.70-1.30) mg/dL Est Cr Clr Drug Dosing Estimated GFR (MDRD) BUN/Creatinine Ratio (No establ ref range) Glucose (70-99) mg/dL Lactic Acid (0.4-2.0) mmol/L Calcium (8.5-10.1) mg/dL Magnesium (1.8-2.4) mg/dL Total Bilirubin (0.2-1.0) mg/dL AST (15-37) U/L ALT (16-63) U/L Alkaline Phosphatase (46-116) U/L Ammonia 171 H (11-32) umol/L Troponin I (0.000-0.056) ng/mL C-Reactive Protein (0.0-0.9) mg/dL B-Natriuretic Peptide (0-100) pg/ml Total Protein (6.4-8.2) g/dL Albumin (3.4-5.0) g/dL Globulin Albumin/Globulin Ratio Amylase (25-115) U/L Lipase (73-393) U/L Urine Color (YELLOW) Urine Appearance (CLEAR) Urine pH (5.0-9.0) Ur Specific [place] (1.005-1.030) Urine Protein (NEGATIVE) Urine Glucose (UA) (NEGATIVE) Urine Ketones (NEGATIVE) Urine Occult Blood (NEGATIVE) Urine Nitrite (NEGATIVE) Urine Bilirubin (NEGATIVE) Urine Urobilinogen (0.2-1.0) mg/dL Ur Leukocyte Esterase (NEGATIVE) Urine RBC /HPF Urine WBC (0-5/HPF) /HPF Ur Epithelial Cells (NOT SEEN) /HPF Urine Bacteria (0-FEW/HPF) /HPF Urine Mucus (NOT SEEN) /LPF Urine Opiates Screen (NEGATIVE) Ur Oxycodone Screen (NEGATIVE) Urine Methadone Screen (NEGATIVE) Ur Barbiturates Screen (NEGATIVE) U Tricyclic Antidepress (NEGATIVE) Ur Phencyclidine Scrn (NEGATIVE) Ur Amphetamine Screen (NEGATIVE) U Methamphetamines Scrn (NEGATIVE) Urine MDMA Screen (NEGATIVE) U Benzodiazepines Scrn (NEGATIVE) Urine Cocaine Screen (NEGATIVE) U Marijuana (THC) Screen (NEGATIVE) Ethyl Alcohol (0) mg/dL Influenza Type A RNA Negative (NEGATIVE) Influenza Type B RNA Negative (NEGATIVE) SARS-CoV-2 RNA (DANN) Negative (NEGATIVE) - Radiology Interpretation Free Text/Narrative:: [facility] Final Radiology Report Call: [phone] assistance Online chat: [email or web address] Name: TANNER MADRID Age: 40Years M Date: 03/07/2021 SSN: -- : 1980 Study: CT HEAD WO CONT Requesting Physician: Camilla Mcgovern Images: [id number] Addl Studies: Provided Clinical History: Altered mental status Contrast: Without Contrast Medium: Contrast Amount: Contrast Method: Page 1 of 2 PROCEDURE INFORMATION: Exam: CT Head Without Contrast Exam date and time: 03/07/2021 11:33 PM Age: 40 years old Clinical indication: Altered mental status. TECHNIQUE: Imaging protocol: Computed tomography of the head without contrast. Radiation optimization: All CT scans at this facility use at least one of these dose optimization techniques: automated exposure control; mA and/or kV adjustment per patient size (includes targeted exams where dose is matched to clinical indication); or iterative reconstruction. COMPARISON: No relevant prior studies available. FINDINGS: Mild generalized cerebral volume loss, greater than expected for patient age. There is incidental expansion of the cisterna magna. Brain is otherwise without significant abnormality. No evidence of intracranial hemorrhage, mass effect, hydrocephalus, or significant extra-axial collection. Extracranial soft tissues are unremarkable. Mild chronic deformity of the right medial orbital wall compatible with old fracture. No acute fracture. Tiny retention cyst or polyp at the right maxillary sinus base. Remaining paranasal sinuses and mastoid air cells are clear. IMPRESSION: 1. Mild cerebral volume loss, greater than expected for patient age. 2. No acute intracranial findings. Thank you for allowing us to participate in the care of your patient. Dictated and Authenticated by: Gael Avery MD [facility] Final Radiology Report Call: [phone] assistance Online chat: [email or web address] Name: TANNER MADRID Age: 40Years M Date: 03/07/2021 SSN: -- : 1980 Study: CT CHEST WO CONT Requesting Physician: Camilla Mcgovern Images: [id number] Addl Studies: Provided Clinical History: sob Contrast: Without Contrast Medium: Contrast Amount: Contrast Method: Page 1 of 2 PROCEDURE INFORMATION: Exam: CT Chest Without Contrast; Diagnostic Exam date and time: 03/07/2021 11:33 PM Age: 40 years old Clinical indication: Shortness of breath; Additional info: SOB TECHNIQUE: Imaging protocol: Diagnostic computed tomography of the chest without contrast. Radiation optimization: All CT scans at this facility use at least one of these dose optimization techniques: automated exposure control; mA and/or kV adjustment per patient size (includes targeted exams where dose is matched to clinical indication); or iterative reconstruction. COMPARISON: CR Chest 1V Frontal 02/23/2021 6:27 PM FINDINGS: Lungs: Bilateral multifocal ground-glass infiltrates involving both upper and lower lungs consistent with acute bilateral viral pneumonia. Pleural spaces: Unremarkable. No pneumothorax. No pleural effusion. Heart: Unremarkable. No cardiomegaly. No pericardial effusion. Mediastinal space: Large gastric and esophageal varices Aorta: Unremarkable. No aortic aneurysm. Lymph nodes: Unremarkable. No enlarged lymph nodes. Liver: Incidental note is made of cirrhosis of the liver with splenomegaly. Bones/joints: Unremarkable. No acute fracture. Soft tissues: Unremarkable. IMPRESSION: 1. Bilateral multifocal ground-glass infiltrates involving both upper and lower lungs consistent with acute bilateral viral pneumonia. 2. Incidental note is made of cirrhosis of the liver with splenomegaly. 3. Large gastric and esophageal varices Thank you for allowing us to participate in the care of your patient. Dictated and Authenticated by: Maurice Carney MD 03/08/2021 12:38 AM Central Time ([place] & [place]) [facility] Final Radiology Report Call: [phone] assistance Online chat: [email or web address] Name: TANNER MADRID Age: 40Years M Date: 03/07/2021 SSN: -- : 1980 Study: CT CHEST WO CONT Requesting Physician: Camilla Mcgovern Images: [id number] Addl Studies: Provided Clinical History: sob Contrast: Without Contrast Medium: Contrast Amount: Contrast Method: Page 1 of 2 PROCEDURE INFORMATION: Exam: CT Abdomen Without Contrast Exam date and time: 03/07/2021 11:33 PM Age: 40 years old Clinical indication: Shortness of breath; Additional info: SOB TECHNIQUE: Imaging protocol: Computed tomography images of the abdomen without contrast. Radiation optimization: All CT scans at this facility use at least one of these dose optimization techniques: automated exposure control; mA and/or kV adjustment per patient size (includes targeted exams where dose is matched to clinical indication); or iterative reconstruction. COMPARISON: No relevant prior studies available. FINDINGS: Liver: Nodular liver consistent with cirrhosis. Gallbladder and bile ducts: Normal. No calcified stones. No ductal dilation. Pancreas: No CT evidence for acute pancreatitis. Spleen: Splenomegaly with gastric and esophageal varices consistent with portal hypertension. Adrenals: Normal. No mass. Kidneys and ureters: Normal. No hydronephrosis. Stomach and bowel: Visualized stomach and bowel are unremarkable. No obstruction. No mucosal thickening. Intraperitoneal space: Unremarkable. No free air. No significant fluid collection. Lymph nodes: Unremarkable. No enlarged lymph nodes. Vasculature: Unremarkable. No abdominal aortic aneurysm. Bones/joints: Unremarkable. No acute fracture. No dislocation. Soft tissues: Unremarkable. IMPRESSION: 1. Nodular liver consistent with cirrhosis. No hepatic mass is identified. 2. Splenomegaly with gastric and esophageal varices consistent with portal hypertension. 3. No CT evidence for acute pancreatitis 4. Small hiatal hernia Thank you for allowing us to participate in the care of your patient. Dictated and Authenticated by: Maurice Carney MD 03/08/2021 1:06 AM Central Time ([place] & [place]) - Re-Assessments/Exams Free Text/Narrative Re-Assessment/Exam: 03/08/21 CT head unremarkable for acute processes. EKG reveal ST with prolonged QT interval. Troponin WNL. BNP elevated at 181. Liver function reduced with AST 49, ALT 32, and Alk Phos 149. Total Bili 3.2. Amylase and Lipase elevated at 138 and 1021, respectively. Ammonia elevated at 171. Patient is not markedly distended but abdominal wave noted with palpation. CT abdomen remarkable for cirrhosis of liver with esophageal and gastric varices. Hgb 9.8, Coags slightly elevated. Kidney function slightly reduced with creatinine 1.44, BUN 12, GFR 54. CT chest revealed bilateral upper and lower lobe pneumonia. Patient currently on Rocephin and Dapto via ID, WBC 7.5 with mild left shift noted. Oxygen saturations remain 99% on RA; increased respiratory rate appreciated in high 20s - low 30s. Cause pneumonia vs. ascites. Lactic acid elevated at 4.4 ETOH and Tox Screen negative. Influenza and COVID negative. Case discussed with Dr. Strickland, hospitalist at [facility] in [place] who kindly agreed to accept patient for transfer due to hepatic encephalopathy with likely need for paracentesis. Departure - Departure Time of Disposition: 02:27 Disposition: DC/Tfer to Acute Hospital 02 Condition: Fair Clinical Impression: Hepatic encephalopathy, Lymphedema of right lower extremity, Elevated amylase and lipase, Total bilirubin, elevated, Acute kidney injury, Ascites due to alcoholic cirrhosis, Esophageal varices in cirrhosis Pneumonia Qualifiers: Pneumonia type: due to unspecified organism Laterality: bilateral Lung location: unspecified part of lung Qualified Code(s): J18.9 - Pneumonia, unspecified organism Liver cirrhosis Qualifiers: Hepatic cirrhosis type: unspecified hepatic cirrhosis Ascites presence: with ascites Qualified Code(s): K74.60 - Unspecified cirrhosis of liver - Discharge Information Forms: ED Department Discharge, Interfacility Transfer [facility] [place] Sepsis Event Note (ED) - Evaluation Sepsis Screening Result: No Definite Risk - Focused Exam Vital Signs: Vital Signs Temp Pulse Resp BP Pulse Ox 03/07/21 23:00 98.3 F 111 H 20 124/74 100 - My Orders Last 24 Hours: My Active Orders 03/07/21 22:54 EKG Documentation Completion [RC] STAT 03/07/21 23:38 REFLEX LACTIC ACID YES OR NO [CHEM] Routine - Assessment/Plan Last 24 Hours: My Active Orders 03/07/21 22:54 EKG Documentation Completion [RC] STAT 03/07/21 23:38 REFLEX LACTIC ACID YES OR NO [CHEM] Routine
[2021-03-08 01:55] LABS: CORONAVIRUS COVID-19 NAA NEGATIVE (NEGATIVE)
== END 2021-03-08 02:25 ==
LOC: DL.ED 23:14
DX: N17.9 Acute kidney failure, unspecified (principal); J18.9 Pneumonia, unspecified organism; K72.90 Hepatic failure, unspecified without coma; I89.0 Lymphedema, not elsewhere classified; R74.8 Abnormal levels of other serum enzymes; K70.31 Alcoholic cirrhosis of liver with ascites; I85.10 Secondary esophageal varices without bleeding; I10 Essential (primary) hypertension; K21.9 Gastro-esophageal reflux disease without esophagitis; E80.6 Other disorders of bilirubin metabolism; Z20.822 Contact with and (suspected) exposure to COVID-19; Z88.6 Allergy status to analgesic agent; Z79.899 Other long term (current) drug therapy
CPT/HCPCS: 0240U; 36415; 51702; 70450; 71250; 80053; 80305-QW; 80307; 81001; 82140; 82150; 83605; 83690; 83735; 83880; 84484; 85025; 85610; 85730; 86140; 93005; 96365; 96367; 99284; 99285-25; J0696; J0878

== ENCOUNTER 2021-07-03 13:53 | Emergency (ER) | payer MEDICARE, MEDICAID ==
[2021-07-03] MEDS ORDERED: Ondansetron 4 MG/2 ML SDV IV ONE (14:34)
[2021-07-03] MEDS ORDERED: Furosemide 40 MG/4 ML VIAL IV ONE (15:00)
[2021-07-03] MEDS ORDERED: Dexamethasone 4 MG/ML SDV IVPUSH ONE (15:00)
[2021-07-03] MEDS ORDERED: diphenhydrAMINE 50 MG/ML SDV IV ONE (15:00)
[2021-07-03] MEDS ORDERED: Norepinephrine 4 MG in Dextrose 5% in Water 246 ML IV SCH ×2 (15:00)
[2021-07-03 15:11] LABS: ANION GAP 20.4 mEq/L (7-13); CHLORIDE,CL 97 mmol/L (98-107); SODIUM,NA 128 mmol/L (136-145)
[2021-07-03] MEDS ORDERED: Piperacillin/Tazobactam 3.375 GM in Sodium Chloride 0.9% 100 ML IV ONE (15:23)
[2021-07-03 15:28] LABS: PTT,PARTIAL THROMBOPLSTIN TIME 36.1 SEC (22.0-34.0)
--- NOTE | 2021-07-03 15:30 | CR ---
PROCEDURE INFORMATION: Exam: XR Chest Exam date and time: 07/03/2021 2:55 PM Age: 40 years old Clinical indication: Other: Rales; Additional info: Rales, increased abdominal ascites TECHNIQUE: Imaging protocol: XR of the chest. Views: 1 view. Total images: 1 COMPARISON: CT Chest wo Cont, Chest wo Cont 03/07/2021 11:33 PM FINDINGS: Lungs: Unremarkable. No consolidation. Pleural spaces: Unremarkable. No pleural effusion. No pneumothorax. Heart/Mediastinum: Unremarkable. No cardiomegaly. Bones/joints: Unremarkable. IMPRESSION: No acute findings.
--- NOTE | 2021-07-03 16:05 | EDM.PDOC ---
Scribed by Angélica Tariq 07/03/21 1447 for Tara Gomez MD ED HPI GENERAL MEDICAL PROBLEM - General Chief Complaint: Abdominal Pain Stated Complaint: AMBULANCE Time Seen by Provider: 07/03/21 14:17 Source of Information: Reports: Patient, EMS, EMS Notes Reviewed, RN, RN Notes Reviewed History Limitations: Reports: No Limitations - History of Present Illness INITIAL COMMENTS - FREE TEXT/NARRATIVE: Patient arrives by [facility]. Patient's family called [facility] because patient has had a change from his baseline mental status following a three day history of nausea and vomiting. They also noted an increase in abdominal distention and epigastric pain. Per EMS his blood pressure was 85/45. History of cirrhosis. Patient states vomit is green or foody. He states he had a bowel movement today. He rates pain to the midline abdomen at 9/10. Fluid bolus started in field and patient received 4mg Zofran. Glucose per EMS 133. Right leg discoloration is not new and being investigated by PCP. Onset: Gradual Duration: Getting Worse Location: Reports: Abdomen Severity: Severe Improves with: Reports: None Associated Symptoms: Reports: No Other Symptoms abdominal Pain Score (Numeric/FACES): 9 - Related Data Allergies Allergy/AdvReac Type Severity Reaction Status Date / Time aspirin Allergy Swelling Verified 03/07/21 23:15 Home Meds: Home Meds DAPTOmycin [Cubicin] 500 mg IV Q24H vial 03/05/21 [Rx] Ferrous Sulfate 325 mg PO DAILY 30 Days #30 03/05/21 [Rx] Folic Acid 1 mg PO DAILY 30 Days #30 03/05/21 [Rx] Furosemide [Lasix] 40 mg PO DAILY 30 Days #30 03/05/21 [Rx] Lactulose [Cephulac] 20 gm PO BID 30 Days #60 cup 03/05/21 [Rx] Magnesium Oxide 250 mg PO WITHBREAKFAST 30 Days #30 tablet 03/05/21 [Rx] Metoprolol Tartrate [Lopressor] 25 mg PO DAILY 30 Days #30 03/05/21 [Rx] Pantoprazole Sodium [Protonix] 40 mg PO DAILY 30 Days #30 03/05/21 [Rx] Potassium Chloride [Klor-Con 10] 20 meq PO BIDMEALS 30 Days #30 tab.er 03/05/21 [Rx] Spironolactone [Aldactone] 25 mg PO DAILY 30 Days #30 03/05/21 [Rx] cefTRIAXone [Rocephin] 2 gm IV Q24H vial 03/05/21 [Rx] Past Medical History HEENT History: Reports: Other (See Below) Other HEENT History: left lazy eye Cardiovascular History: Reports: Hypertension Respiratory History: Reports: None Gastrointestinal History: Reports: Cirrhosis, GERD Genitourinary History: Reports: None Musculoskeletal History: Reports: None Neurological History: Reports: None Psychiatric History: Reports: None Endocrine/Metabolic History: Reports: None Hematologic History: Reports: None Immunologic History: Reports: None Oncologic (Cancer) History: Reports: None Dermatologic History: Reports: Cellulitis, Other (See Below) Other Dermatologic History: fungus on feet and fingernails. - Infectious Disease History Infectious Disease History: Reports: None - Past Surgical History Head Surgeries/Procedures: Reports: None Social & Family History - Family History Family Medical History: No Pertinent Family History - Caffeine Use Caffeine Use: Reports: None - Living Situation & Occupation Living situation: Reports: with Family Occupation: Disabled ED ROS GENERAL - Review of Systems Review Of Systems: Comprehensive ROS is negative, except as noted in HPI. ED EXAM, GENERAL - Physical Exam Exam: See Below Exam Limited By: Altered Mental Status General Appearance: Alert, No Apparent Distress, Other (Chronically ill appearing) Eye Exam: Bilateral Eye: EOMI (Scleral icterus), PERRL Ears: Hearing Grossly Normal Nose: Normal Inspection, No Blood Throat/Mouth: Normal Voice, No Airway Compromise, Other (Dry oral mucosa. Poor dentition.) Head: Atraumatic, Normocephalic Neck: Normal Inspection, Non-Tender Respiratory/Chest: No Respiratory Distress, No Accessory Muscle Use, Chest Non- Tender, Decreased Breath Sounds, Crackles, Rales. No: Rhonchi, Wheezing Cardiovascular: Regular Rate, Rhythm, Tachycardia GI/Abdominal: Normal Bowel Sounds, Soft, No Distention (Protruberant but not distended, likely ascites), Tender (supraumbilical to epigastric tenderness). No: Guarding, Rigid, Rebound (Male) Exam: Deferred Rectal (Males) Exam: Deferred Extremities: Pedal Edema (+1 pitting to left knee, trace at Rt lower leg.), Other (Right leg dark bronze/brown/charcoal color with dry scaley skin, chronic and stable per pt and family) Neurological: Alert, Oriented (To person and place), No Motor/Sensory Deficits, Confused Psychiatric: Normal Mood, Flat Affect Skin Exam: Warm, Dry, Jaundice Course - Vital Signs Last Recorded V/S: Last Vital Signs Temp 97.5 F 07/03/21 14:27 Pulse 115 H 07/03/21 14:27 Resp 20 07/03/21 14:27 BP 70/24 L 07/03/21 14:27 Pulse Ox 93 L 07/03/21 14:27 - Orders/Labs/Meds Orders: Active Orders 24 hr Category Date Time Status Verify Patient Consent Obtain [RC] ASDIRECTED Care 07/03/21 15:02 Active ANTIBODY IDENTIFICATION [BBK] Stat Lab 07/03/21 14:44 Results DRUG SCREEN URINE BIORAD [URCHEM] Stat Lab 07/03/21 14:33 Ordered RED BLOOD CELLS LP [BBK] Stat Lab 07/03/21 14:44 Results REFLEX LACTIC ACID YES OR NO [CHEM] Routine Lab 07/03/21 15:18 Received TYPE AND SCREEN [BBK] Stat Lab 07/03/21 14:44 Results UA RFX DELROY AND CULT IF INDIC [URIN] Stat Lab 07/03/21 14:34 Ordered Norepinephrine [Levophed] 4 mg Med 07/03/21 15:00 Active Dextrose 5% in Water 246 ml IV TITRATE Transfuse Red Blood Cells [COMM] Stat Oth 07/03/21 15:00 Ordered Transfuse Red Blood Cells [COMM] Stat Oth 07/03/21 15:01 Ordered Medication Orders Norepinephrine Bitartrate 4 mg (/ Dextrose/Water) 250 mls @ 15 mls/hr IV TITRATE SILVESTRE; Protocol Last Titration: 07/03/21 15:44 Dose: 8 mcg/min, 30 mls/hr Documented by: Admin: 07/03/21 15:11 Dose: 4 mcg/min, 15 mls/hr Documented by: ARCELIA Labs: Laboratory Tests 07/03/21 07/03/21 07/03/21 Range/Units 14:44 14:44 14:44 WBC 18.3 H (5.0-10.0) 10^3/uL RBC 1.34 L (4.6-6.2) 10^6/uL Hgb 4.1 L* D (14.0-18.0) g/dL Hct 13.1 L* (40.0-54.0) % MCV 97.8 (80-100) fL MCH 30.6 (27.0-34.0) pg MCHC 31.3 L (33.0-35.0) g/dL Plt Count 231 D (150-450) 10^3/uL Neut % (Auto) 81.9 H (42.2-75.2) % Lymph % (Auto) 9.2 L (20.5-50.1) % [place] % (Auto) 8.7 H (2-8) % Eos % (Auto) 0.1 L (1.0-3.0) % Baso % (Auto) 0.1 (0.0-1.0) % PT 18.8 H (9.0-12.0) SEC INR 1.9 H (0.9-1.2) APTT 36.1 H (22.0-34.0) SEC Sodium 128 L (136-145) mmol/L Potassium 6.4 H D (3.5-5.1) mmol/L Chloride 97 L (98-107) mmol/L Carbon Dioxide 17 L (21-32) mmol/L Anion Gap 20.4 H (7-13) mEq/L BUN 49 H D (7-18) mg/dL Creatinine 3.64 H D (0.70-1.30) mg/dL Est Cr Clr Drug Dosing 22.14 mL/min Estimated GFR (MDRD) 18 BUN/Creatinine Ratio 13.5 (No establ ref range) Glucose 104 H (70-99) mg/dL Lactic Acid (0.4-2.0) mmol/L Calcium 7.4 L (8.5-10.1) mg/dL Total Bilirubin 2.6 H (0.2-1.0) mg/dL AST 55 H (15-37) U/L ALT 31 (16-63) U/L Alkaline Phosphatase 107 (46-116) U/L Ammonia (11-32) umol/L Total Protein 4.9 L (6.4-8.2) g/dL Albumin 1.1 L (3.4-5.0) g/dL Globulin 3.8 Albumin/Globulin Ratio 0.29 Amylase 51 (25-115) U/L Lipase 192 (73-393) U/L Ethyl Alcohol < 3 (0) mg/dL Blood Type Gel Antibody Screen Crossmatch 07/03/21 07/03/21 07/03/21 Range/Units 14:44 14:44 14:44 WBC (5.0-10.0) 10^3/uL RBC (4.6-6.2) 10^6/uL Hgb (14.0-18.0) g/dL Hct (40.0-54.0) % MCV (80-100) fL MCH (27.0-34.0) pg MCHC (33.0-35.0) g/dL Plt Count (150-450) 10^3/uL Neut % (Auto) (42.2-75.2) % Lymph % (Auto) (20.5-50.1) % [place] % (Auto) (2-8) % Eos % (Auto) (1.0-3.0) % Baso % (Auto) (0.0-1.0) % PT (9.0-12.0) SEC INR (0.9-1.2) APTT (22.0-34.0) SEC Sodium (136-145) mmol/L Potassium (3.5-5.1) mmol/L Chloride (98-107) mmol/L Carbon Dioxide (21-32) mmol/L Anion Gap (7-13) mEq/L BUN (7-18) mg/dL Creatinine (0.70-1.30) mg/dL Est Cr Clr Drug Dosing mL/min Estimated GFR (MDRD) BUN/Creatinine Ratio (No establ ref range) Glucose (70-99) mg/dL Lactic Acid 5.9 H* (0.4-2.0) mmol/L Calcium (8.5-10.1) mg/dL Total Bilirubin (0.2-1.0) mg/dL AST (15-37) U/L ALT (16-63) U/L Alkaline Phosphatase (46-116) U/L Ammonia 15 (11-32) umol/L Total Protein (6.4-8.2) g/dL Albumin (3.4-5.0) g/dL Globulin Albumin/Globulin Ratio Amylase (25-115) U/L Lipase (73-393) U/L Ethyl Alcohol (0) mg/dL Blood Type O POSITIVE Gel Antibody Screen Positive Crossmatch See Detail Meds: Medications Generic Name Dose Route Start Last Admin Trade Name Beatrice PRN Reason Stop Dose Admin Norepinephrine Bitartrate 4 mg 250 mls @ 15 mls/hr 07/03/21 15:00 07/03/21 15:44 / Dextrose/Water IV 8 mcg/min TITRATE SILVESTRE 30 mls/hr Titration Protocol 4 MCG/MIN Discontinued Medications Generic Name Dose Route Start Last Admin Trade Name Titusq PRN Reason Stop Dose Admin Dexamethasone 4 mg 07/03/21 15:00 07/03/21 15:48 Dexamethasone 4 Mg/Ml Sdv IVPUSH 07/03/21 15:01 4 mg ONETIME ONE Administration Diphenhydramine HCl 25 mg 07/03/21 15:00 07/03/21 15:48 Diphenhydramine 50 Mg/Ml Sdv IV 07/03/21 15:01 25 mg ONETIME ONE Administration Furosemide 40 mg 07/03/21 15:00 Furosemide 40 Mg/4 Ml Vial IV 07/03/21 15:01 NOW ONE Piperacillin Sod/Tazobactam 100 mls @ 200 mls/hr 07/03/21 15:23 07/03/21 15:42 Sod 3.375 gm/ Sodium Chloride IV 07/03/21 15:52 200 mls/hr ONETIME ONE Administration Ondansetron HCl 4 mg 07/03/21 14:34 07/03/21 14:42 Ondansetron 4 Mg/2 Ml Sdv IV 07/03/21 14:35 4 mg ONETIME ONE Administration - Radiology Interpretation Free Text/Narrative:: [facility] Final Radiology Report Call: [phone] assistance Online chat: [email or web address] Name: TANNER MADRID Age: 40Years M Date: 07/03/2021 SSN: -- : [id number] Study: CR CHEST 1V FRONTAL Requesting Physician: TARA GOMEZ Images: 1 Addl Studies: Provided Clinical History: rales, increased abdominal ascites Contrast: Contrast Medium: Contrast Amount: Contrast Method: CONFIDENTIALITY STATEMENT This report is intended only for use by the referring physician, and only in accordance with law. If you received this in error, call [phone]. Page 1 of 1 PROCEDURE INFORMATION: Exam: XR Chest Exam date and time: 07/03/2021 2:55 PM Age: 40 years old Clinical indication: Other: Rales; Additional info: Rales, increased abdominal ascites TECHNIQUE: Imaging protocol: XR of the chest. Views: 1 view. Total images: 1 COMPARISON: CT Chest wo Cont, Chest wo Cont 03/07/2021 11:33 PM FINDINGS: Lungs: Unremarkable. No consolidation. Pleural spaces: Unremarkable. No pleural effusion. No pneumothorax. Heart/Mediastinum: Unremarkable. No cardiomegaly. Bones/joints: Unremarkable. IMPRESSION: No acute findings. Thank you for allowing us to participate in the care of your patient. Dictated and Authenticated by: Jareth Rosales MD 07/03/2021 3:29 PM Central Time ([place] & [place]) - Re-Assessments/Exams Free Text/Narrative Re-Assessment/Exam: 07/03/21 15:58 Presser initiated due to hypotension persistent after 1L IVF bolus. 2 units PRBCs ordered for transfusion due to Hgb 4.1, but pt has antibodies and we do not have compatible blood products available. Zosyn due to abd. pain and WBC 18k in case of SBP. Rapid air transfer to [facility] with Dr. Rodriguez accepting. Pt remained awake, alert and conversant throughout the ER stay. Departure - Departure Time of Disposition: 16:03 Disposition: DC/Tfer to Acute Hospital 02 Condition: Serious, Critical Clinical Impression: Severe anemia, Ascites due to alcoholic cirrhosis, SAMINA (acute kidney injury) Sepsis Qualifiers: Sepsis type: sepsis due to unspecified organism Sepsis acute organ dysfunction status: unspecified Qualified Code(s): A41.9 - Sepsis, unspecified organism Abdominal pain Qualifiers: Abdominal location: upper abdomen, unspecified Qualified Code(s): R10.10 - Upper abdominal pain, unspecified - Discharge Information *PRESCRIPTION DRUG MONITORING PROGRAM REVIEWED*: Not Applicable *COPY OF PRESCRIPTION DRUG MONITORING REPORT IN PATIENT CHARITY: Not Applicable Forms: ED Department Discharge, Interfacility Transfer EMTALA Sepsis Event Note (ED) - Focused Exam Vital Signs: Vital Signs Temp Pulse Resp BP Pulse Ox 07/03/21 14:27 97.5 F 115 H 20 70/24 L 93 L - My Orders Last 24 Hours: My Active Orders 07/03/21 14:33 DRUG SCREEN URINE BIORAD [URCHEM] Stat 07/03/21 14:34 UA RFX DELROY AND CULT IF INDIC [URIN] Stat 07/03/21 14:44 ANTIBODY IDENTIFICATION [BBK] Stat RED BLOOD CELLS LP [BBK] Stat TYPE AND SCREEN [BBK] Stat 07/03/21 15:00 Norepinephrine [Levophed] 4 mg Dextrose 5% in Water 246 ml IV TITRATE Transfuse Red Blood Cells [COMM] Stat 07/03/21 15:01 Transfuse Red Blood Cells [COMM] Stat 07/03/21 15:02 Verify Patient Consent Obtain [RC] ASDIRECTED 07/03/21 15:18 REFLEX LACTIC ACID YES OR NO [CHEM] Routine - Assessment/Plan Last 24 Hours: My Active Orders 07/03/21 14:33 DRUG SCREEN URINE BIORAD [URCHEM] Stat 07/03/21 14:34 UA RFX DELROY AND CULT IF INDIC [URIN] Stat 07/03/21 14:44 ANTIBODY IDENTIFICATION [BBK] Stat RED BLOOD CELLS LP [BBK] Stat TYPE AND SCREEN [BBK] Stat 07/03/21 15:00 Norepinephrine [Levophed] 4 mg Dextrose 5% in Water 246 ml IV TITRATE Transfuse Red Blood Cells [COMM] Stat 07/03/21 15:01 Transfuse Red Blood Cells [COMM] Stat 07/03/21 15:02 Verify Patient Consent Obtain [RC] ASDIRECTED 07/03/21 15:18 REFLEX LACTIC ACID YES OR NO [CHEM] Routine I have read and agree with the documentation that has been completed regarding this visit. By signing this record, I attest that the documentation was completed in my physical presence and is an accurate record of the encounter.
== END 2021-07-03 16:02 ==
LOC: DL.ED 13:53
DX: A41.9 Sepsis, unspecified organism (principal); K70.31 Alcoholic cirrhosis of liver with ascites; D64.9 Anemia, unspecified; N17.9 Acute kidney failure, unspecified; I10 Essential (primary) hypertension; K21.9 Gastro-esophageal reflux disease without esophagitis; Z79.899 Other long term (current) drug therapy; Z88.8 Allergy status to other drugs, medicaments and biological substances
CPT/HCPCS: 36415; 71045; 80053; 80307; 82140; 82150; 83605; 83690; 85025; 85610; 85730; 86850; 86870; 86900; 86901; 86920; 86922; 96365; 96374; 96375; 99285; J1100; J1200; J2405; J2543; J7060